=== PATIENT | male | born 1970 | race Two or more races ===

== ENCOUNTER 2016-08-14 09:42 | Inpatient (IN) | payer OTHER ==
[2016-08-14 12:23] VITALS: BMI 34.0
--- NOTE | 2016-08-14 14:31 | HP ---
COWS - Scale Resting Pulse: 0= [place] 80 or Below Sweatin=Flushed/Facial Moisture Restless Observation: 3= Extraneous Movement Pupil Size: 2= Moderately Dilated Bone or Joint Aches: 2= Severe Diffuse Aches Runny Nose/ Eye Tearin= Runny Nose/Eyes GI Upset > 30mins: 3= Vomiting/Diarrhea Tremor Observation: 2= Slight Tremor Visible Yawning Observation: 2= >3x During Session Anxiety or Irritability: 2=Irritable/Anxious Goose Flesh Skin: 0=Smooth Skin COWS Score: 20 CIWA Score - CIWA Score Nausea/Vomitin Muscle Tremors: 3 Anxiety: 3 Agitation: 3 Paroxysmal Sweats: 2 Orientation: 0-Oriented Tacttile Disturbances: 2-Mild Itch/Numbness/Burn Auditory Disturbances: 2-Mild Harshness/Frighten Visual Disturbances: 2-Mild Sensitivity Headache: 2-Mild CIWA-Ar Total Score: 22 Admission ROS BHS - HPI Chief Complaint: I NEED HELP TO STOP USING HEROIN AND ALCOHOL Allergies/Adverse Reactions: Allergies Allergy/AdvReac Type Severity Reaction Status Date / Time enoxaparin sodium Allergy Severe Rash Verified 08/14/16 14:01 [From [facility]] History of Present Illness: THIS 45 YEARS OLD MALE WITH HEROIN AND ALCOHOL DEPENDENCE,SEEKING HELP FOR DETOX , SEVERAL ADMISSIONS IN THE PAST,LAST 03/13 [facility] PERIOD OF SOBRIETY 4 YEARS MULTIPLE MEDICAL PROBLEMS ASTHMA,HTN,TYPE 2 DM HIV [id number] [place] 1999 IVC FILFER DVT OF LEFT LEG - Ebola screening Have you traveled outside of the country in the last 21 days: No Have you been sick,other than usual withdrawal symptoms: No - Review of Systems Constitutional: Chills, Diaphoresis, Loss of Appetite, Malaise, Night Sweats, Changes in sleep, Weakness EENT: reports: Tearing, Nose Congestion Respiratory: reports: No Symptoms reported, Other (ASTHMA) Cardiac: reports: No Symptoms Reported ([place] 1999) GI: reports: Diarrhea, Nausea, Poor Fluid Intake, Vomiting : reports: No Symptoms Reported Musculoskeletal: reports: Back Pain, Joint Pain, Muscle Pain, Joint Stiffness Integumentary: reports: Dryness Neuro: reports: Headache, Tremors Endocrine: reports: No Symptoms Reported Hematology: reports: No Symptoms Reported, Other (HIV) Psychiatric: reports: No Sypmtoms Reported, Judgement Intact, Mood/Affect Appropiate, Orientated x3 (INSOMNIA) Patient History - Patient Medical History Hx Anemia: No Hx Asthma: Yes (ON ALBUTEROL INHALER) Hx Chronic Obstructive Pulmonary Disease (COPD): No Hx Cancer: No Hx Cardiac Disorders: Yes ([place] 1999) Hx Congestive Heart Failure: No Hx Hypertension: Yes (ON MED) Hx Hypercholesterolemia: No Hx Pacemaker: No HX Cerebrovascular Accident: No Hx Seizures: No Hx Dementia: No Hx Diabetes: Yes (TYPE 2 DM) Hx Gastrointestinal Disorders: No Hx Liver Disease: No Hx Genitourinary Disorders: No Hx Sexually Transmitted Disorders: No Hx Renal Disease (ESRD): No Hx Thyroid Disease: No Hx Human Immunodeficiency Virus (HIV): Yes (SINCE 2010) Hx Hepatitis C: No Hx Depression: No Hx Suicide Attempt: No Hx Bipolar Disorder: No Hx Schizophrenia: No Other Medical History: INSOMNIA,NO SUICIDAL,NO HOMICIDAL - Patient Surgical History Past Surgical History: Yes Other Surgical History: IVC FILTER IN 2009 - PPD History Previous Implant?: Yes Documented Results: Negative w/o proof Implanted On Prior [facility] Admission?: No PPD to be Administered?: Yes - Smoking Cessation Smoking history: Current every day smoker Have you smoked in the past 12 months: Yes Aproximately how many cigarettes per day: 5 Hx Chewing Tobacco Use: No Initiated information on smoking cessation: Yes 'Breaking Loose' booklet given: 08/14/16 - Substances Abused Alcohol-beer Route: Oral Frequency: Daily Amount used: 2 (40 oz.) Age of first use: 19 Date of Last Use: 08/13/16 Heroin Route: Inhalation Frequency: Daily Amount used: 10 bags Age of first use: 28 Date of Last Use: 08/13/16 Family Disease History - Family Disease History Family Disease History: Other: Father (ALCOHOL,) Admission Physical Exam BHS - Vital Signs Vital Signs: Vital Signs - 24 hr 08/14/16 12:20 Temperature 97.7 F Pulse Rate 68 Respiratory 20 Rate Blood Pressure 148/105 - Physical General Appearance: Yes: Moderate Distress, Tremorous, Irritable, Sweating, Anxious HEENTM: Yes: Normal ENT Inspection, GREG, Pharynx Normal Respiratory: Yes: Lungs Clear, Normal Breath Sounds, No Respiratory Distress Breast: Yes: Within Normal Limits Cardiology: Yes: Within Normal Limits, Regular Rhythm, Regular Rate, S1, S2 Abdominal: Yes: Within Normal Limits, Normal Bowel Sounds, Non Tender, Flat, Soft Genitourinary: Yes: Within Normal Limits Back: Yes: Normal Inspection, Muscle Spasm Musculoskeletal: Yes: Back pain, Joint Stiffness, Muscle Pain Extremities: Yes: Within Normal Limits, Normal Range of Motion, Tremors Neurological: Yes: Within Normal Limits, 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, Alert, Motor Strength 5/5 Integumentary: Yes: Dry Lymphatic: Yes: Within Normal Limits - Diagnostic (1) Opioid dependence with withdrawal Current Visit: Yes Status: Acute (2) Alcohol dependence with uncomplicated withdrawal Current Visit: Yes Status: Acute (3) HIV (human immunodeficiency virus infection) Current Visit: Yes Status: Acute (4) Asthma Current Visit: Yes Status: Acute (5) Hypertension Current Visit: Yes Status: Acute (6) DM2 (diabetes mellitus, type 2) Current Visit: Yes Status: Acute (7) Hepatitis C Current Visit: Yes Status: Acute (8) [place] (myocardial infarction) Current Visit: Yes Status: Acute (9) Left leg DVT Current Visit: Yes Status: Acute (10) S/P IVC filter Current Visit: Yes Status: Acute (11) Nicotine dependence Current Visit: Yes Status: Acute Cleared for Admission S - Detox or Rehab [facility] Level of Care: Medically Managed Detox Regimen/Protocol: Methadone/Librium S Breath Alcohol Content Breath Alcohol Content: 0 Urine Drug Screen - Results Drug Screen Negative: No Urine Drug Screen Results: BRADLEY-Cocaine, OPI-Opiates, MTD-Methadone
[2016-08-14] MEDS ORDERED: hydrOXYzine PAMOATE 50 MG CAPSULE (FP) PO PRN (14:49)
[2016-08-14] MEDS ORDERED: MENTHOL/PHENOL 1 EACH UD MM PRN (14:49)
[2016-08-14] MEDS ORDERED: MAGNESIUM HYDROX 2400MG/30ML ORAL SUSPENSION 30 ML CUP PO PRN (14:49)
[2016-08-14] MEDS ORDERED: P-EPHED 60MG/TRIPROLIDI 2.5MG TABLET PO PRN (14:49)
[2016-08-14] MEDS ORDERED: MAG HYDROX/AL HYDROX/SIMETH 30 ML UNIT-DOSE CUP PO PRN (14:49)
[2016-08-14] MEDS ORDERED: guaiFENesin/D-METHORPHAN HB 10 ML UNIT-DOSE CUPS PO PRN (14:49)
[2016-08-14] MEDS ORDERED: IBUPROFEN 400 MG TABLET (FP) PO PRN (14:49)
[2016-08-14] MEDS ORDERED: MAGNESIUM CITRATE 300 ML BOTTLE PO PRN (14:49)
[2016-08-14] MEDS ORDERED: ACETAMINOPHEN 325 MG TABLET (FP) PO PRN (14:49)
[2016-08-14] MEDS ORDERED: LOPERAMIDE HCL 2 MG CAPSULE PO PRN (14:49)
[2016-08-14] MEDS ORDERED: chlordiazePOXIDE HCL 25 MG CAPSULE PO PRN (14:49)
[2016-08-14] MEDS ORDERED: ALBUTEROL SO4 6.7 GM HFA INHALER IH PRN (14:52)
[2016-08-14] MEDS ORDERED: METHADONE HCL 10 MG TABLET (FOR DETOX USE ONLY) PO ONE ×2 (14:57→23:00)
[2016-08-14] MEDS ORDERED: chlordiazePOXIDE HCL 25 MG CAPSULE PO ONE (14:57)
[2016-08-14] MEDS: chlordiazePOXIDE HCL 25 MG CAPSULE PO SCH ×2 (17:09→22:12)
[2016-08-14 20:49] LABS: URINE APPEARANCE CLEAR; URINE BILIRUBIN NEGATIVE (NEGATIVE); URINE BLOOD NEGATIVE (NEGATIVE); URINE COLOR YELLOW; URINE GLUCOSE (UA) NEGATIVE (NEGATIVE); URINE KETONE NEGATIVE (NEGATIVE); URINE LEUK ESTERASE NEGATIVE (NEGATIVE); URINE NITRITE NEGATIVE (NEGATIVE); URINE PROTEIN NEGATIVE (NEGATIVE); URINE UROBILINOGEN NEGATIVE E.U./dl (0.2-1.0)
[2016-08-14] MEDS: THIAMINE HCL 100 MG TABLET (FP) PO SCH (22:11)
[2016-08-15] MEDS: chlordiazePOXIDE HCL 25 MG CAPSULE PO SCH ×4 (05:36→22:03)
[2016-08-15] MEDS: metFORMIN HCL 500 MG TABLET (FP) PO SCH (06:27)
[2016-08-15] MEDS ORDERED: METHADONE HCL 10 MG TABLET (FOR DETOX USE ONLY) PO SCH (10:00)
[2016-08-15] MEDS: LISINOPRIL 20 MG TABLET (FP) PO SCH (10:10)
[2016-08-15] MEDS: HYDROCHLOROTHIAZIDE 25 MG TABLET (FP) PO SCH (10:10)
[2016-08-15] MEDS: METOPROLOL SUCCINATE 50 MG TAB.SR.24H (FP) PO SCH (10:10)
[2016-08-15] MEDS: PRENATAL VITAMINS W/ FOLIC ACID TABLET (FP) PO SCH (10:10)
[2016-08-15 10:11] LABS: MCH 27.3 pg (25.7-33.7); MCHC 32.1 g/dl (32.0-35.9); MEAN CELL VOLUME 85.2 fl (80-96); MEAN PLT VOLUME 10.6 fl (7.5-11.1); PLATELET COUNT 141 K/MM3 (134-434); RDW 14.9 % (11.9-15.9); WHITE BLOOD COUNT 3.9 K/mm3 (4.0-10.0)
[2016-08-15 10:23] LABS: ALBUMIN 3.6 g/dl (3.4-5.0); BILIRUBIN,TOTAL 0.7 mg/dL (0.2-1.0); CALCIUM 8.6 mg/dL (8.5-10.1); COCKROFT - GAULT 89.83; CREATININE 1.5 mg/dL (0.7-1.3); TOT PROT 6.7 g/dl (6.4-8.2)
[2016-08-15] MEDS: ASPIRIN 325 MG ENTERIC COATED TABLET (FP) PO SCH (11:10)
--- NOTE | 2016-08-15 12:21 | EKG ---
Test Reason : Blood Pressure : / mmHG Vent. Rate : 067 BPM Atrial Rate : 067 BPM P-R Int : 198 ms QRS Dur : 090 ms QT Int : 428 ms P-R-T Axes : 035 -08 067 degrees QTc Int : 452 ms NORMAL SINUS RHYTHM VOLTAGE CRITERIA FOR LEFT VENTRICULAR HYPERTROPHY INFERIOR INFARCT , AGE UNDETERMINED ABNORMAL ECG NO PREVIOUS ECGS AVAILABLE Confirmed by MD WANDER, CHERELLE ([id number]) on 08/15/2016 12:21:33 PM Referred By: Confirmed By:CHERELLE VIRAMONTES MD
--- NOTE | 2016-08-15 18:05 | PN ---
[facility] CIWA - CIWA Score Nausea/Vomitin-Mild Nausea/No Vomiting Muscle Tremors: 4-Moderate,w/Arms Extend Anxiety: 2 Agitation: 3 Paroxysmal Sweats: 3 Orientation: 0-Oriented Tacttile Disturbances: 0-None Auditory Disturbances: 3-Moderate Harsh/Frighten Visual Disturbances: 2-Mild Sensitivity Headache: 0-None Present CIWA-Ar Total Score: 18 BHS COWS - Scale Resting Pulse: 0= [place] 80 or Below Sweatin=Flushed/Facial Moisture Restless Observation: 1= Difficult to Sit Still Pupil Size: 0= Normal to Room Light Bone or Joint Aches: 2= Severe Diffuse Aches Runny Nose/ Eye Tearin= Runny Nose/Eyes GI Upset > 30mins: 1= Stomach Cramp Tremor Observation of Outstretched Hands: 2= Slight Tremor Visible Yawning Observation: 1= 1-2x During Session Anxiety or Irritability: 2=Irritable/Anxious Goose Flesh Skin: 3=Piloerection COWS Score: 16 S Progress Note (SOAP) Subjective: Body Aches, Sweating, Tremors. Objective: PT. A & O X 3, OBSERVED AMBULATING ON UNIT. PT. DENIES CHEST PAIN. 08/15/16 18:04 Vital Signs Temperature 96.8 F L 08/15/16 14:54 Pulse Rate 59 L 08/15/16 14:54 Respiratory Rate 18 08/15/16 14:54 Blood Pressure 144/92 08/15/16 14:54 O2 Sat by Pulse Oximetry (%) Laboratory Tests 08/14/16 08/14/16 08/15/16 15:45 16:18 05:34 WBC RBC Hgb Hct MCV MCHC RDW Plt Count MPV Sodium Potassium Chloride Carbon Dioxide Anion Gap BUN Creatinine Creat Clearance w eGFR POC Glucometer 120 121 Random Glucose Calcium Total Bilirubin AST ALT Alkaline Phosphatase Total Protein Albumin Urine Color Yellow Urine Appearance Clear Urine pH 6.0 Ur Specific [place] 1.020 Urine Protein Negative Urine Glucose (UA) Negative Urine Ketones Negative Urine Blood Negative Urine Nitrite Negative Urine Bilirubin Negative Urine Urobilinogen Negative Ur Leukocyte Esterase Negative RPR Titer 08/15/16 08/15/16 08/15/16 06:00 06:00 06:00 WBC 3.9 L RBC 5.07 Hgb 13.8 Hct 43.1 MCV 85.2 MCHC 32.1 RDW 14.9 Plt Count 141 MPV 10.6 Sodium 142 Potassium 3.9 Chloride 105 Carbon Dioxide 30 Anion Gap 7 L BUN 19 H Creatinine 1.5 H Creat Clearance w eGFR 50.16 POC Glucometer Random Glucose 171 H Calcium 8.6 Total Bilirubin 0.7 AST 15 ALT 20 Alkaline Phosphatase 72 Total Protein 6.7 Albumin 3.6 Urine Color Urine Appearance Urine pH Ur Specific [place] Urine Protein Urine Glucose (UA) Urine Ketones Urine Blood Urine Nitrite Urine Bilirubin Urine Urobilinogen Ur Leukocyte Esterase RPR Titer Nonreactive 08/15/16 16:19 WBC RBC Hgb Hct MCV MCHC RDW Plt Count MPV Sodium Potassium Chloride Carbon Dioxide Anion Gap BUN Creatinine Creat Clearance w eGFR POC Glucometer 87 Random Glucose Calcium Total Bilirubin AST ALT Alkaline Phosphatase Total Protein Albumin Urine Color Urine Appearance Urine pH Ur Specific [place] Urine Protein Urine Glucose (UA) Urine Ketones Urine Blood Urine Nitrite Urine Bilirubin Urine Urobilinogen Ur Leukocyte Esterase RPR Titer LABS NOTED. 08/15/16 18:07 Assessment: 08/15/16 18:07 WITHDRAWAL SYMPTOMS. Plan: CONTINUE DETOX.
[2016-08-15] MEDS: THIAMINE HCL 100 MG TABLET (FP) PO SCH (22:03)
[2016-08-15] MEDS: diphenhydrAMINE HCL 50 MG CAPSULE PO PRN (22:03)
[2016-08-16] MEDS: chlordiazePOXIDE HCL 25 MG CAPSULE PO SCH ×2 (05:40→10:08)
[2016-08-16] MEDS: metFORMIN HCL 500 MG TABLET (FP) PO SCH (06:20)
[2016-08-16] MEDS: ASPIRIN 325 MG ENTERIC COATED TABLET (FP) PO SCH (10:07)
[2016-08-16] MEDS: METHADONE HCL 5 MG TABLET (FOR DETOX USE ONLY) PO SCH (10:07)
[2016-08-16] MEDS: PRENATAL VITAMINS W/ FOLIC ACID TABLET (FP) PO SCH (10:07)
[2016-08-16] MEDS: LISINOPRIL 20 MG TABLET (FP) PO SCH (10:07)
[2016-08-16] MEDS: HYDROCHLOROTHIAZIDE 25 MG TABLET (FP) PO SCH (10:08)
[2016-08-16] MEDS: METOPROLOL SUCCINATE 50 MG TAB.SR.24H (FP) PO SCH (10:08)
[2016-08-16] MEDS ORDERED: cloNIDine HCL 0.1 MG TABLET PO ONE ×2 (15:30→21:42)
--- NOTE | 2016-08-16 16:05 | PN ---
[facility] CIWA - CIWA Score Nausea/Vomitin Muscle Tremors: 4-Moderate,w/Arms Extend Anxiety: 3 Agitation: 3 Paroxysmal Sweats: No Perspiration Orientation: 0-Oriented Tacttile Disturbances: 1-Very Mild Itch/Numbness Auditory Disturbances: 0-None Visual Disturbances: 0-None Headache: 1-Very Mild CIWA-Ar Total Score: 15 BHS COWS - Scale Resting Pulse: 0= [place] 80 or Below Sweatin= Chills/Flushing Restless Observation: 3= Extraneous Movement Pupil Size: 0= Normal to Room Light Bone or Joint Aches: 2= Severe Diffuse Aches Runny Nose/ Eye Tearin= Runny Nose/Eyes GI Upset > 30mins: 1= Stomach Cramp Tremor Observation of Outstretched Hands: 2= Slight Tremor Visible Yawning Observation: 0= None Anxiety or Irritability: 2=Irritable/Anxious Goose Flesh Skin: 0=Smooth Skin COWS Score: 13 S Progress Note (SOAP) Subjective: Sweating, anxious, rhinorrhea, tremor, interrupted sleep Objective: 08/16/16 16:03 Last Vital Signs Temp Pulse Resp BP Pulse Ox 96.9 F L 59 L 18 157/104 08/16/16 13:38 08/16/16 15:00 08/16/16 13:38 08/16/16 15:00 Laboratory Tests 08/14/16 08/14/16 08/15/16 15:45 16:18 05:34 WBC RBC Hgb Hct MCV MCHC RDW Plt Count MPV Sodium Potassium Chloride Carbon Dioxide Anion Gap BUN Creatinine Creat Clearance w eGFR POC Glucometer 120 121 Random Glucose Calcium Total Bilirubin AST ALT Alkaline Phosphatase Total Protein Albumin Urine Color Yellow Urine Appearance Clear Urine pH 6.0 Ur Specific [place] 1.020 Urine Protein Negative Urine Glucose (UA) Negative Urine Ketones Negative Urine Blood Negative Urine Nitrite Negative Urine Bilirubin Negative Urine Urobilinogen Negative Ur Leukocyte Esterase Negative RPR Titer 08/15/16 08/15/16 08/15/16 06:00 06:00 06:00 WBC 3.9 L RBC 5.07 Hgb 13.8 Hct 43.1 MCV 85.2 MCHC 32.1 RDW 14.9 Plt Count 141 MPV 10.6 Sodium 142 Potassium 3.9 Chloride 105 Carbon Dioxide 30 Anion Gap 7 L BUN 19 H Creatinine 1.5 H Creat Clearance w eGFR 50.16 POC Glucometer Random Glucose 171 H Calcium 8.6 Total Bilirubin 0.7 AST 15 ALT 20 Alkaline Phosphatase 72 Total Protein 6.7 Albumin 3.6 Urine Color Urine Appearance Urine pH Ur Specific [place] Urine Protein Urine Glucose (UA) Urine Ketones Urine Blood Urine Nitrite Urine Bilirubin Urine Urobilinogen Ur Leukocyte Esterase RPR Titer Nonreactive 08/15/16 08/16/16 16:19 05:40 WBC RBC Hgb Hct MCV MCHC RDW Plt Count MPV Sodium Potassium Chloride Carbon Dioxide Anion Gap BUN Creatinine Creat Clearance w eGFR POC Glucometer 87 123 Random Glucose Calcium Total Bilirubin AST ALT Alkaline Phosphatase Total Protein Albumin Urine Color Urine Appearance Urine pH Ur Specific [place] Urine Protein Urine Glucose (UA) Urine Ketones Urine Blood Urine Nitrite Urine Bilirubin Urine Urobilinogen Ur Leukocyte Esterase RPR Titer Labs noted: BUN 19, serum creatinine 1.5 Assessment: 08/16/16 16:05 Withdrawal symptoms Noted with pre renal azotemia, uncontrolled HTN and hyerglycemia secondary to DMT2 Plan: Continue detox Pre renal azotemia: encouraged to drink lots of water (water pitcher ordered), d /c lisinopril and metformin, hold HAART if no improvement with serum creatinine , repeat BMP in AM Uncontrolled HTN: clonidine 0.1mg PO x 1 dose, continue HCTZ 25mg daily and metoprolol 50mg daily (consider increasing metoprolol to bid if warranted), start norvasc 10mg PO daily, low sodium diet Hyerglycemia secondary to DMT2: finger stick glucose ac meal, start insulin lispro sliding scale with coverage, can resume metformin if serum creatinine < 1.5
[2016-08-16] MEDS: INSULIN SLIDING SCALE (NOVOLOG) 1 VIAL SQ SCH (16:32)
[2016-08-16] MEDS: chlordiazePOXIDE 5 MG CAPSULE PO SCH ×2 (17:45→22:03)
[2016-08-16] MEDS: THIAMINE HCL 100 MG TABLET (FP) PO SCH (22:02)
[2016-08-16] MEDS: diphenhydrAMINE HCL 50 MG CAPSULE PO PRN (22:03)
[2016-08-17] MEDS: chlordiazePOXIDE 5 MG CAPSULE PO SCH ×3 (05:50→10:06)
[2016-08-17] MEDS ORDERED: INSULIN (NOVOLOG) ASPART 100 UNITS/ML 10ML VIAL ONE (06:21)
[2016-08-17] MEDS: INSULIN SLIDING SCALE (NOVOLOG) 1 VIAL SQ SCH ×2 (06:31→17:11)
[2016-08-17 10:03] LABS: COCKROFT - GAULT 103.65; CREATININE 1.3 mg/dL (0.7-1.3)
[2016-08-17] MEDS: METHADONE HCL 5 MG TABLET (FOR DETOX USE ONLY) PO SCH (10:04)
[2016-08-17] MEDS: METOPROLOL SUCCINATE 50 MG TAB.SR.24H (FP) PO SCH (10:04)
[2016-08-17] MEDS: HYDROCHLOROTHIAZIDE 25 MG TABLET (FP) PO SCH (10:04)
[2016-08-17] MEDS: ASPIRIN 325 MG ENTERIC COATED TABLET (FP) PO SCH (10:04)
[2016-08-17] MEDS: PRENATAL VITAMINS W/ FOLIC ACID TABLET (FP) PO SCH (10:04)
[2016-08-17] MEDS: amLODIPine BESYLATE 10 MG TABLET (FP) PO SCH (10:04)
--- NOTE | 2016-08-17 11:46 | PN ---
BHS Progress Note (SOAP) Subjective: Sweating, Tremors. Objective: PT. A & O X 3, OBSERVED AMBULATING ON UNIT. PT. DENIES CHEST PAIN AND DIZZINESS. 08/17/16 11:43 Vital Signs Temperature 97.2 F L 08/17/16 09:49 Pulse Rate 47 L 08/17/16 09:49 Respiratory Rate 18 08/17/16 09:49 Blood Pressure 141/93 08/17/16 09:49 O2 Sat by Pulse Oximetry (%) Laboratory Tests 08/14/16 08/14/16 08/14/16 14:36 15:45 16:18 WBC RBC Hgb Hct MCV MCHC RDW Plt Count MPV Sodium Potassium Chloride Carbon Dioxide Anion Gap BUN Creatinine Creat Clearance w eGFR POC Glucometer 144 120 Random Glucose Calcium Total Bilirubin AST ALT Alkaline Phosphatase Total Protein Albumin Urine Color Yellow Urine Appearance Clear Urine pH 6.0 Ur Specific [place] 1.020 Urine Protein Negative Urine Glucose (UA) Negative Urine Ketones Negative Urine Blood Negative Urine Nitrite Negative Urine Bilirubin Negative Urine Urobilinogen Negative Ur Leukocyte Esterase Negative RPR Titer 08/15/16 08/15/16 08/15/16 05:34 06:00 06:00 WBC 3.9 L RBC 5.07 Hgb 13.8 Hct 43.1 MCV 85.2 MCHC 32.1 RDW 14.9 Plt Count 141 MPV 10.6 Sodium 142 Potassium 3.9 Chloride 105 Carbon Dioxide 30 Anion Gap 7 L BUN 19 H Creatinine 1.5 H Creat Clearance w eGFR 50.16 POC Glucometer 121 Random Glucose 171 H Calcium 8.6 Total Bilirubin 0.7 AST 15 ALT 20 Alkaline Phosphatase 72 Total Protein 6.7 Albumin 3.6 Urine Color Urine Appearance Urine pH Ur Specific [place] Urine Protein Urine Glucose (UA) Urine Ketones Urine Blood Urine Nitrite Urine Bilirubin Urine Urobilinogen Ur Leukocyte Esterase RPR Titer 08/15/16 08/15/16 08/16/16 06:00 16:19 05:40 WBC RBC Hgb Hct MCV MCHC RDW Plt Count MPV Sodium Potassium Chloride Carbon Dioxide Anion Gap BUN Creatinine Creat Clearance w eGFR POC Glucometer 87 123 Random Glucose Calcium Total Bilirubin AST ALT Alkaline Phosphatase Total Protein Albumin Urine Color Urine Appearance Urine pH Ur Specific [place] Urine Protein Urine Glucose (UA) Urine Ketones Urine Blood Urine Nitrite Urine Bilirubin Urine Urobilinogen Ur Leukocyte Esterase RPR Titer Nonreactive 08/16/16 08/17/16 08/17/16 16:25 05:52 07:15 WBC RBC Hgb Hct MCV MCHC RDW Plt Count MPV Sodium 139 Potassium 3.5 Chloride 100 Carbon Dioxide 32 Anion Gap 7 L BUN 21 H Creatinine 1.3 Creat Clearance w eGFR POC Glucometer 95 121 Random Glucose 131 H D Calcium 9.0 Total Bilirubin AST ALT Alkaline Phosphatase Total Protein Albumin Urine Color Urine Appearance Urine pH Ur Specific [place] Urine Protein Urine Glucose (UA) Urine Ketones Urine Blood Urine Nitrite Urine Bilirubin Urine Urobilinogen Ur Leukocyte Esterase RPR Titer LABS NOTED. 08/17/16 11:46 Assessment: 08/17/16 11:45 WITHDRAWAL SYMPTOMS. Plan: CONTINUE DETOX. CONTINUE TO MONITOR BP.
[2016-08-17] MEDS: chlordiazePOXIDE HCL 10 MG CAPSULE PO SCH ×2 (17:10→22:07)
[2016-08-17] MEDS: diphenhydrAMINE HCL 50 MG CAPSULE PO PRN (22:07)
[2016-08-17] MEDS: THIAMINE HCL 100 MG TABLET (FP) PO SCH (22:07)
[2016-08-18] MEDS: chlordiazePOXIDE HCL 10 MG CAPSULE PO SCH ×2 (05:32→10:06)
[2016-08-18] MEDS: INSULIN SLIDING SCALE (NOVOLOG) 1 VIAL SQ SCH ×2 (06:22→17:30)
[2016-08-18] MEDS ORDERED: METHADONE HCL 10 MG TABLET (FOR DETOX USE ONLY) PO SCH (10:00)
[2016-08-18] MEDS: METOPROLOL SUCCINATE 50 MG TAB.SR.24H (FP) PO SCH (10:04)
[2016-08-18] MEDS: PRENATAL VITAMINS W/ FOLIC ACID TABLET (FP) PO SCH (10:05)
[2016-08-18] MEDS: ASPIRIN 325 MG ENTERIC COATED TABLET (FP) PO SCH (10:05)
[2016-08-18] MEDS: amLODIPine BESYLATE 10 MG TABLET (FP) PO SCH (10:05)
[2016-08-18] MEDS: HYDROCHLOROTHIAZIDE 25 MG TABLET (FP) PO SCH (10:05)
--- NOTE | 2016-08-18 11:20 | PN ---
BHS Progress Note (SOAP) Subjective: Sweating,interrupted sleep,restless Objective: 08/18/16 11:19 Vital Signs - 8 hr 08/18/16 08/18/16 08/18/16 03:30 06:20 09:48 Temperature 97.3 F L 96.9 F L Pulse Rate 52 L 59 L Respiratory 18 18 18 Rate Blood Pressure 142/104 150/98 08/18/16 09:49 Temperature 96.9 F L Pulse Rate 58 L Respiratory 18 Rate Blood Pressure 153/114 Laboratory Last Values WBC 3.9 K/mm3 (4.0-10.0) L 08/15/16 06:00 RBC 5.07 M/mm3 (4.00-5.60) 08/15/16 06:00 Hgb 13.8 GM/dL (11.7-16.9) 08/15/16 06:00 Hct 43.1 % (35.4-49) 08/15/16 06:00 MCV 85.2 fl (80-96) 08/15/16 06:00 MCHC 32.1 g/dl (32.0-35.9) 08/15/16 06:00 RDW 14.9 % (11.9-15.9) 08/15/16 06:00 Plt Count 141 K/MM3 (134-434) 08/15/16 06:00 MPV 10.6 fl (7.5-11.1) 08/15/16 06:00 Sodium 139 mmol/L (136-145) 08/17/16 07:15 Potassium 3.5 mmol/L (3.5-5.1) 08/17/16 07:15 Chloride 100 mmol/L (98-107) 08/17/16 07:15 Carbon Dioxide 32 mmol/L (21-32) 08/17/16 07:15 Anion Gap 7 (8-16) L 08/17/16 07:15 BUN 21 mg/dL (7-18) H 08/17/16 07:15 Creatinine 1.3 mg/dL (0.7-1.3) 08/17/16 07:15 Creat Clearance w eGFR 50.16 (>60) 08/15/16 06:00 POC Glucometer 112 UNITS (()) 08/18/16 05:36 Random Glucose 131 mg/dL (74-106) H D 08/17/16 07:15 Calcium 9.0 mg/dL (8.5-10.1) 08/17/16 07:15 Total Bilirubin 0.7 mg/dL (0.2-1.0) 08/15/16 06:00 AST 15 U/L (15-37) 08/15/16 06:00 ALT 20 U/L (12-78) 08/15/16 06:00 Alkaline Phosphatase 72 U/L (45-117) 08/15/16 06:00 Total Protein 6.7 g/dl (6.4-8.2) 08/15/16 06:00 Albumin 3.6 g/dl (3.4-5.0) 08/15/16 06:00 Urine Color Yellow 08/14/16 15:45 Urine Appearance Clear 08/14/16 15:45 Urine pH 6.0 (5.0-8.0) 08/14/16 15:45 Ur Specific [place] 1.020 (1.005-1.025) 08/14/16 15:45 Urine Protein Negative (NEGATIVE) 08/14/16 15:45 Urine Glucose (UA) Negative (NEGATIVE) 08/14/16 15:45 Urine Ketones Negative (NEGATIVE) 08/14/16 15:45 Urine Blood Negative (NEGATIVE) 08/14/16 15:45 Urine Nitrite Negative (NEGATIVE) 08/14/16 15:45 Urine Bilirubin Negative (NEGATIVE) 08/14/16 15:45 Urine Urobilinogen Negative E.U./dl (0.2-1.0) 08/14/16 15:45 Ur Leukocyte Esterase Negative (NEGATIVE) 08/14/16 15:45 RPR Titer Nonreactive (NONREACTIVE) 08/15/16 06:00 labs noted Assessment: 08/18/16 11:20 Withdrawal sx. Plan: Continue detox
[2016-08-18] MEDS: THIAMINE HCL 100 MG TABLET (FP) PO SCH (21:44)
[2016-08-18] MEDS ORDERED: cloNIDine HCL 0.1 MG TABLET PO ONE (22:02)
[2016-08-18] MEDS: diphenhydrAMINE HCL 50 MG CAPSULE PO PRN (22:03)
[2016-08-19] MEDS ORDERED: METHADONE HCL 5 MG TABLET (FOR DETOX USE ONLY) PO SCH (06:00)
[2016-08-19 06:25] VITALS: BP 159/99; PULSE 52; TEMP 96.9
[2016-08-19] MEDS: amLODIPine BESYLATE 10 MG TABLET (FP) PO SCH ×2 (06:36→06:37)
[2016-08-19] MEDS: INSULIN SLIDING SCALE (NOVOLOG) 1 VIAL SQ SCH (06:39)
[2016-08-19] MEDS: METOPROLOL SUCCINATE 50 MG TAB.SR.24H (FP) PO SCH ×2 (06:39→06:40)
--- NOTE | 2016-08-19 13:25 | DS ---
[facility] Detox Discharge Summary Admission Date: 08/14/16 Discharge Date: 08/19/16 - History Present History: Alcohol Dependence, Opioid Dependence Additional Comments: PT COMPLETED DETOX AND D/C'D EARLIER THIS MORNING. PT TO F/U WITH HIS PMD FOR MEDICAL MANAGEMENT OF COMORBID CONDITIONS. Pertinent Past History: ASTHMA CAD- S/P NC HTN TYPE 2 DM HIV+ LEFT LEG DVT S/P IVC FILTER HEP C - Physical Exam Results Vital Signs: Vital Signs Temperature 96.9 F L 08/19/16 06:25 Pulse Rate 52 L 08/19/16 06:25 Respiratory Rate 16 08/19/16 06:25 Blood Pressure 159/99 08/19/16 06:25 O2 Sat by Pulse Oximetry (%) Pertinent Admission Physical Exam Findings: WITHDRAWAL SX - Treatment Hospital Course: Detox Protocol Followed, Detoxed Safely, Responded well - Medication Discharge Medications: Ambulatory Orders Albuterol Sulfate Inhaler - [Ventolin Hfa Inhaler -] 2 inh PO Q4H PRN 08/14/16 Aspirin [Aspirin EC] 325 mg PO DAILY 08/14/16 Emtricitab/Rilpiviri/Tenof Ala [Odefsey Tablet] 1 each PO DAILY 08/14/16 Hydrochlorothiazide 25 mg PO DAILY 08/14/16 Lisinopril [Prinivil] 20 mg PO DAILY 08/14/16 Metformin HCl [Glucophage -] 500 mg PO DAILY 08/14/16 Metoprolol Succinate [Toprol Xl -] 50 mg PO DAILY 08/14/16 - Diagnosis (1) Alcohol dependence with uncomplicated withdrawal Status: Acute (2) Asthma Status: Chronic Qualifiers: Asthma severity: mild intermittent Asthma complication type: uncomplicated Qualified Code(s): J45.20 - Mild intermittent asthma, uncomplicated (3) DM2 (diabetes mellitus, type 2) Status: Chronic Qualifiers: Diabetes mellitus complication status: without complication (4) HIV (human immunodeficiency virus infection) Status: Chronic (5) Hepatitis C Status: Chronic (6) Hypertension Status: Chronic Qualifiers: Hypertension type: essential hypertension Qualified Code(s): I10 - Essential (primary) hypertension (7) Left leg DVT Status: Chronic Qualifiers: Affected thrombotic vein of extremity: unspecified lower extremity distal vein Chronicity: unspecified Qualified Code(s): I82.4Z2 - Acute embolism and thrombosis of unspecified deep veins of left distal lower extremity (8) Nicotine dependence Status: Acute Qualifiers: Nicotine product type: cigarettes Substance use status: in withdrawal Qualified Code(s): F17.213 - Nicotine dependence, cigarettes, with withdrawal (9) Old [place] (myocardial infarction) Status: Suspected (10) Opioid dependence with withdrawal Status: Acute (11) S/P IVC filter Status: Chronic - AMA Did Patient Leave Against Medical Advice: No
== END 2016-08-19 07:11 | disposition home or self-care (01) | DRG 773 ==
LOC: YASAS 09:42 → Y3N 14:50
PROVIDERS: ADMIT Internal Medicine; ATTEND Internal Medicine
PROC: HZ2ZZZZ Detoxification Services for Substance Abuse Treatment (ICD-10-PCS; principal; 2016-08-14)
DX: F11.23 Opioid dependence with withdrawal (principal); F17.213 Nicotine dependence, cigarettes, with withdrawal; J45.20 Mild intermittent asthma, uncomplicated; E11.65 Type 2 diabetes mellitus with hyperglycemia; B18.2 Chronic viral hepatitis C; I10 Essential (primary) hypertension; I25.2 Old myocardial infarction; Z21 Asymptomatic human immunodeficiency virus [HIV] infection status; Z95.828 Presence of other vascular implants and grafts; Z79.84 Long term (current) use of oral hypoglycemic drugs; R79.89 Other specified abnormal findings of blood chemistry
CPT/HCPCS: 36415; 80048; 80053; 81003; 85027; 86593; 93005; 93010

== ENCOUNTER 2017-07-15 14:14 | Inpatient (IN) | payer OTHER ==
[2017-07-15 14:49] VITALS: BMI 36.0
--- NOTE | 2017-07-15 18:36 | HP ---
COWS - Scale Resting Pulse: 0= [place] 80 or Below Sweatin=Flushed/Facial Moisture Restless Observation: 1= Difficult to Sit Still Pupil Size: 0= Normal to Room Light Bone or Joint Aches: 0= None Runny Nose/ Eye Tearin= Runny Nose/Eyes GI Upset > 30mins: 0= None Tremor Observation: 2= Slight Tremor Visible Yawning Observation: 1= 1-2x During Session Anxiety or Irritability: 1=Feels Anxious/Irritable Goose Flesh Skin: 3=Piloerection COWS Score: 12 Admission ROS S - HPI Chief Complaint: Opioid withdrawal symptoms Allergies/Adverse Reactions: Allergies Allergy/AdvReac Type Severity Reaction Status Date / Time enoxaparin sodium Allergy Severe Rash Verified 07/15/17 17:44 [From Lovenox] History of Present Illness: 46 yo male with hx of heroin, cocaine and nicotine dependence is here seeking detox. Last detox [facility] July 2016. PMHX: HTN, hx OR 2009, [facility] and treated Denies suicidal / homicidal ideation or suicide attempts Longest period of period of sobriety 9 months, reports relapse two weeks ago Exam Limitations: No Limitations - Ebola screening Have you traveled outside of the country in the last 21 days: No Have you had contact with anyone from an Ebola affected area: No Have you been sick,other than usual withdrawal symptoms: No Do you have a fever: No - Review of Systems Constitutional: Chills, Changes in sleep EENT: reports: Nose Congestion Respiratory: reports: No Symptoms reported Cardiac: reports: No Symptoms Reported GI: reports: Poor Fluid Intake : reports: No Symptoms Reported Musculoskeletal: reports: Joint Pain Integumentary: reports: No Symptoms Reported Neuro: reports: No Symptoms reported Endocrine: reports: Excessive Sweating, Increased Thirst Hematology: reports: No Symptoms Reported Psychiatric: reports: Orientated x3, Anxious Other Systems: Reviewed and Negative Patient History - Patient Medical History Hx Anemia: No Hx Asthma: Yes (ON ALBUTEROL INHALER) Hx Chronic Obstructive Pulmonary Disease (COPD): No Hx Cancer: No Hx Cardiac Disorders: Yes (OLD OR IN 1999) Hx Congestive Heart Failure: No Hx Hypertension: Yes (ON MED) Hx Hypercholesterolemia: No Hx Pacemaker: No HX Cerebrovascular Accident: No Hx Seizures: No Hx Dementia: No Hx Diabetes: Yes (TYPE 2 DM) Hx Gastrointestinal Disorders: No Hx Liver Disease: No Hx Genitourinary Disorders: No Hx Sexually Transmitted Disorders: No Hx Renal Disease (ESRD): No Hx Thyroid Disease: No Hx Human Immunodeficiency Virus (HIV): Yes (SINCE 2010, [facility] ) Hx Hepatitis C: No Hx Depression: No Hx Suicide Attempt: No Hx Bipolar Disorder: No Hx Schizophrenia: No - Patient Surgical History Past Surgical History: Yes Hx Neurologic Surgery: No Hx Cataract Extraction: No Hx Cardiac Surgery: No Hx Lung Surgery: No Hx Breast Surgery: No Hx Breast Biopsy: No Hx Abdominal Surgery: No Hx Appendectomy: No Hx Cholecystectomy: No Hx Genitourinary Surgery: No Hx Section: No Hx Orthopedic Surgery: No Other Surgical History: IVC FILTER IN 2009 Anesthesia Reaction: No - PPD History Previous Implant?: Yes Date: 08/16/16 PPD to be Administered?: No - Reproductive History Patient is a Female of Child Bearing Age (11 -55 yrs old): No - Smoking Cessation Smoking history: Current every day smoker Have you smoked in the past 12 months: Yes Aproximately how many cigarettes per day: 4 Hx Chewing Tobacco Use: No Initiated information on smoking cessation: Yes 'Breaking Loose' booklet given: 07/15/17 - Substance & Tx. History Hx Alcohol Use: No Hx Substance Use: Yes Substance Use Type: Cocaine, Heroin Hx Substance Use Treatment: Yes ([facility] July 2016) - Substances Abused Heroin Route: Inhalation Frequency: Daily Amount used: 5 BAGS Age of first use: 28 Date of Last Use: 07/14/17 Cocaine Route: Smoking Frequency: Daily Amount used: 1 BAG Age of first use: 28 Date of Last Use: 07/14/17 Family Disease History - Family Disease History Family Disease History: Other: Father (ALCOHOL,) Admission Physical Exam S - Vital Signs Vital Signs: Vital Signs - 24 hr 07/15/17 14:47 Temperature 97 F L Pulse Rate 78 Respiratory 20 Rate Blood Pressure 185/110 - Physical General Appearance: Yes: Appropriately Dressed, Sweating, Anxious HEENTM: Yes: EOMI, Hearing grossly Normal, Normal ENT Inspection, Pharynx Normal , Tm's normal, Nasal Congestion Respiratory: Yes: Chest Non-Tender, Lungs Clear, Normal Breath Sounds, No Respiratory Distress, No Accessory Muscle Use Neck: Yes: Within Normal Limits Breast: Yes: Breast Exam Deferred Cardiology: Yes: Regular Rhythm, Regular Rate Abdominal: Yes: Normal Bowel Sounds, Non Tender, Soft, Protuberent Genitourinary: Yes: Within Normal Limits Back: Yes: Normal Inspection Musculoskeletal: Yes: full range of Motion, Gait Steady, Pelvis Stable, Joint swelling Extremities: Yes: Normal Capillary Refill, Normal Inspection, Normal Range of Motion, Non-Tender 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 NML intact, Fully Oriented, Alert, Motor Strength 5/5, Depressed Affect Integumentary: Yes: Normal Color, Warm, Diaphoresis Lymphatic: Yes: Within Normal Limits - Diagnostic (1) Elevated blood pressure reading in office with diagnosis of hypertension Current Visit: Yes Status: Acute (2) Cocaine dependence Current Visit: Yes Status: Acute Qualifiers: Substance use status: uncomplicated Qualified Code(s): F14.20 - Cocaine dependence, uncomplicated (3) Obese Current Visit: Yes Status: Chronic Qualifiers: Obesity classification: adult class 2 (BMI 35 - 39.9) Serious obesity comorbidity presence: with serious comorbidity (4) Nicotine dependence Current Visit: Yes Status: Acute Qualifiers: Nicotine product type: cigarettes Substance use status: in withdrawal Qualified Code(s): F17.213 - Nicotine dependence, cigarettes, with withdrawal (5) Opioid dependence with withdrawal Current Visit: Yes Status: Acute (6) Asthma Current Visit: Yes Status: Chronic Qualifiers: Asthma severity: mild intermittent Asthma complication type: uncomplicated Qualified Code(s): J45.20 - Mild intermittent asthma, uncomplicated (7) DM2 (diabetes mellitus, type 2) Current Visit: Yes Status: Chronic Qualifiers: Diabetes mellitus complication status: without complication (8) HIV (human immunodeficiency virus infection) Current Visit: Yes Status: Chronic (9) Hypertension Current Visit: Yes Status: Chronic Qualifiers: Hypertension type: essential hypertension Qualified Code(s): I10 - Essential (primary) hypertension (10) S/P IVC filter Current Visit: Yes Status: Chronic Cleared for Admission S - Detox or Rehab [facility] Level of Care: Medically Managed Detox Regimen/Protocol: Methadone [facility] Breath Alcohol Content Breath Alcohol Content: 0 Urine Drug Screen - Results Drug Screen Negative: No Urine Drug Screen Results: BRADLEY-Cocaine, OPI-Opiates
[2017-07-15] MEDS ORDERED: MENTHOL/PHENOL 1 EACH UD MM PRN (18:47)
[2017-07-15] MEDS ORDERED: guaiFENesin/D-METHORPHAN HB 10 ML UNIT-DOSE CUPS PO PRN (18:47)
[2017-07-15] MEDS ORDERED: IBUPROFEN 400 MG TABLET (FP) PO PRN (18:47)
[2017-07-15] MEDS ORDERED: diazePAM 5 MG TABLET PO PRN (18:47)
[2017-07-15] MEDS ORDERED: NICOTINE POLACRILEX 2 MG GUM BUC PRN (18:47)
[2017-07-15] MEDS ORDERED: LOPERAMIDE HCL 2 MG CAPSULE PO PRN (18:47)
[2017-07-15] MEDS ORDERED: MAGNESIUM HYDROX 2400MG/30ML ORAL SUSPENSION 30 ML CUP PO PRN (18:47)
[2017-07-15] MEDS ORDERED: MAG HYDROX/AL HYDROX/SIMETH 30 ML UNIT-DOSE CUP PO PRN (18:47)
[2017-07-15] MEDS ORDERED: MAGNESIUM CITRATE 300 ML BOTTLE PO PRN (18:47)
[2017-07-15] MEDS ORDERED: ACETAMINOPHEN 325 MG TABLET (FP) PO PRN (18:47)
[2017-07-15] MEDS ORDERED: ALBUTEROL SO4 18 GM HFA INHALER IH PRN (18:50)
[2017-07-15] MEDS ORDERED: METHADONE HCL 10 MG TABLET (FOR DETOX USE ONLY) PO ONE ×2 (19:00→23:00)
[2017-07-15] MEDS: HYDROCHLOROTHIAZIDE 25 MG TABLET (FP) PO SCH (20:25)
[2017-07-15] MEDS: metFORMIN HCL 500 MG TABLET (FP) PO SCH (20:25)
[2017-07-15] MEDS: LISINOPRIL 20 MG TABLET (FP) PO SCH (20:25)
[2017-07-15] MEDS: P-EPHED 60MG/TRIPROLIDI 2.5MG TABLET PO PRN (21:38)
[2017-07-15] MEDS ORDERED: ALBUTEROL SO4 18 GM HFA INHALER IH ONE (21:56)
[2017-07-15] MEDS: THIAMINE HCL 100 MG TABLET (FP) PO SCH (22:12)
[2017-07-15] MEDS ORDERED: ALBUTEROL SO4 0.083% IH SOL 2.5 MG/3 ML VIAL.NEB. NEB PRN (22:15)
[2017-07-15] MEDS: ASPIRIN 325 MG ENTERIC COATED TABLET (FP) PO SCH (22:58)
[2017-07-15 23:02] LABS: URINE APPEARANCE SLCLOUDY; URINE BILIRUBIN NEGATIVE (<2.0 mg/dL); URINE BLOOD NEGATIVE (NEGATIVE); URINE COLOR YELLOW; URINE GLUCOSE (UA) NEGATIVE (NEGATIVE); URINE KETONE NEGATIVE (NEGATIVE); URINE LEUK ESTERASE NEGATIVE (NEGATIVE); URINE NITRITE NEGATIVE (NEGATIVE); URINE UROBILINOGEN NEGATIVE mg/dL (0.2-1.0)
[2017-07-15 23:04] LABS: URINE PROTEIN 1+ (NEGATIVE)
[2017-07-15 23:07] LABS: EPI CELLS RARE /HPF (FEW); URINE BACTERIA RARE /hpf (NONE SEEN); URINE MUCUS RARE
[2017-07-16] MEDS ORDERED: ONDANSETRON *ODT* 4 MG TABLET SL ONE (08:59)
[2017-07-16] MEDS ORDERED: ONDANSETRON *ODT* 4 MG TABLET SL PRN (08:59)
--- NOTE | 2017-07-16 09:03 | PN ---
BHS COWS - Scale Resting Pulse: 1= [place] 81-100 Sweatin= Chills/Flushing Restless Observation: 1= Difficult to Sit Still Pupil Size: 1= Pupils >than Normal Bone or Joint Aches: 2= Severe Diffuse Aches Runny Nose/ Eye Tearin= Runny Nose/Eyes GI Upset > 30mins: 2= Nausea/Diarrhea Tremor Observation of Outstretched Hands: 2= Slight Tremor Visible Yawning Observation: 1= 1-2x During Session Anxiety or Irritability: 2=Irritable/Anxious Goose Flesh Skin: 0=Smooth Skin COWS Score: 15 BHS Progress Note (SOAP) Subjective: ansuea, sweats, itnerrutped sleep, naxiety, tremors, requestign additional medication agiated, nasal congestion Objective: 07/16/17 09:02 Vital Signs - 24 hr 07/15/17 07/15/17 07/16/17 14:47 22:00 03:30 Temperature 97 F L 97.9 F Pulse Rate 78 75 Respiratory 20 16 18 Rate Blood Pressure 185/110 157/104 07/16/17 07:20 Temperature 96.4 F L Pulse Rate 50 L Respiratory 18 Rate Blood Pressure 125/70 Laboratory Tests 07/15/17 07/15/17 07/16/17 18:00 21:02 07:14 POC Glucometer 169 123 Urine Color Yellow Urine Appearance Slcloudy Urine pH 6.0 Ur Specific [place] 1.024 Urine Protein 1+ H Urine Glucose (UA) Negative Urine Ketones Negative Urine Blood Negative Urine Nitrite Negative Urine Bilirubin Negative Urine Urobilinogen Negative Ur Leukocyte Esterase Negative Urine WBC (Auto) 8 Urine RBC (Auto) 1 Ur Epithelial Cells Rare Urine Bacteria Rare Urine Mucus Rare lab still epnding Assessment: 07/16/17 09:03 withdrawal sx - cont detox, fluids, encourage ambualtion, symptomatic relief of withdrawl ordered, give prn medications, check labs
[2017-07-16] MEDS ORDERED: METHADONE HCL 10 MG TABLET (FOR DETOX USE ONLY) PO ONE (10:00)
[2017-07-16] MEDS ORDERED: PANTOPRAZOLE 40 MG TABLET (FP) PO SCH (10:00)
--- NOTE | 2017-07-16 10:00 | EKG ---
Test Reason : Blood Pressure : / mmHG Vent. Rate : 070 BPM Atrial Rate : 070 BPM P-R Int : 184 ms QRS Dur : 094 ms QT Int : 426 ms P-R-T Axes : 039 -07 087 degrees QTc Int : 460 ms NORMAL SINUS RHYTHM VOLTAGE CRITERIA FOR LEFT VENTRICULAR HYPERTROPHY INFERIOR INFARCT (CITED ON OR BEFORE 14-AUG-2016) T WAVE ABNORMALITY, CONSIDER LATERAL ISCHEMIA ABNORMAL ECG WHEN COMPARED WITH ECG OF 14-AUG-2016 14:38, NO SIGNIFICANT CHANGE WAS FOUND Confirmed by OG BENSON MD ([id number]) on 07/16/2017 9:59:53 AM Referred By: Confirmed By:OG BENSON MD
[2017-07-16] MEDS: HYDROCHLOROTHIAZIDE 25 MG TABLET (FP) PO SCH (10:23)
[2017-07-16] MEDS: metFORMIN HCL 500 MG TABLET (FP) PO SCH (10:23)
[2017-07-16] MEDS: ASPIRIN 325 MG ENTERIC COATED TABLET (FP) PO SCH (10:23)
[2017-07-16] MEDS: amLODIPine BESYLATE 5 MG TABLET (FP) PO SCH (10:23)
[2017-07-16] MEDS: LISINOPRIL 20 MG TABLET (FP) PO SCH (10:23)
[2017-07-16] MEDS: PRENATAL VITAMINS W/ FOLIC ACID TABLET (FP) PO SCH (10:24)
[2017-07-16] MEDS: NAPROXEN 500 MG TABLET (FP) PO SCH ×2 (10:25→22:31)
--- NOTE | 2017-07-16 10:34 | CONSULT ---
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 This is one of multiple admissions for patient. Pt. admitted to for alcohol and cocaine dependence. Substance Abuse History: Following information confirmed with Mr. Browne: Smoking Cessation. Smoking history: Current every day smoker. Have you smoked in the past 12 months: Yes. Aproximately how many cigarettes per day: 4. Hx Chewing Tobacco Use: No. Initiated information on smoking cessation: Yes. ' Breaking Loose' booklet given: 07/15/17. - Substance & Tx. History. Hx Alcohol Use: No. Hx Substance Use: Yes. Substance Use Type: Cocaine, Heroin. Hx Substance Use Treatment: Yes ([facility] July 2016). - Substances Abused. Heroin. Route: Inhalation. Frequency: Daily. Amount used: 5 BAGS. Age of first use: 28. Date of Last Use: 07/14/17. Cocaine. Route: Smoking. Frequency: Daily. Amount used: 1 BAG. Age of first use: 28. Date of Last Use : 07/14/17 Medical History: Asthma, Myocardial infarction in 1999, Hypertension, Diabetes, HIV in 2000 Psychiatric History: Pt. denies h/o psychiatric hospitalizations, outpatient care, and suicide attempt. Physical/Sexual Abuse/Trauma History: Denies. Mental Status Exam - Mental Status Exam Alert and Oriented to: Time, Place, Person Cognitive Function: Good Patient Appearance: Well Groomed Mood: Euthymic Affect: Mood Congruent Patient Behavior: Cooperative Speech Pattern: Appropriate Voice Loudness: Normal Thought Process: Goal Oriented Thought Disorder: Not Present Hallucinations: Denies Suicidal Ideation: Denies Homicidal Ideation: Denies Insight/Judgement: Poor Sleep: Fair Appetite: Fair Muscle strength/Tone: Normal Gait/Station: Normal Psychiatric Findings - Problem List ([place] 1, 2,3) (1) Cocaine dependence Current Visit: Yes Status: Acute Qualifiers: Substance use status: uncomplicated Qualified Code(s): F14.20 - Cocaine dependence, uncomplicated (2) Nicotine dependence Current Visit: Yes Status: Chronic Qualifiers: Nicotine product type: cigarettes Substance use status: in withdrawal Qualified Code(s): F17.213 - Nicotine dependence, cigarettes, with withdrawal (3) Opioid dependence with withdrawal Current Visit: Yes Status: Acute - Initial Treatment Plan Initial Treatment Plan: Psychoeducation provided. Detoxification provided. Observation.
[2017-07-16 10:38] LABS: HEMATOCRIT 45.3 % (35.4-49); HEMOGLOBIN 14.8 GM/dL (11.7-16.9); MCH 28.2 pg (25.7-33.7); MCHC 32.7 g/dl (32.0-35.9); MEAN CELL VOLUME 86.2 fl (80-96); MEAN PLT VOLUME 9.5 fl (7.5-11.1); PLATELET COUNT 148 K/MM3 (134-434); RBC 5.25 M/mm3 (4.00-5.60); RDW 13.8 % (11.9-15.9); WHITE BLOOD COUNT 3.9 K/mm3 (4.0-10.0)
[2017-07-16 10:53] LABS: CHLORIDE 99 mmol/L (98-107); POTASSIUM 3.2 mmol/L (3.5-5.1); SGOT/AST 16 U/L (15-37); SGPT/ALT 21 U/L (12-78); SODIUM 140 mmol/L (136-145)
[2017-07-16 10:59] LABS: ALBUMIN 3.3 g/dl (3.4-5.0); ALK PHOS 82 U/L (45-117); ANION GAP 8 (8-16); BILIRUBIN,TOTAL 0.4 mg/dL (0.2-1.0); BLOOD UREA NITROGEN 18 mg/dL (7-18); CALCIUM 9.2 mg/dL (8.5-10.1); CO2 33 mmol/L (21-32); CREATININE 1.4 mg/dL (0.7-1.3); GLUCOSE,RANDOM 130 mg/dL (74-106); TOT PROT 6.5 g/dl (6.4-8.2)
[2017-07-16] MEDS ORDERED: RANITIDINE HCL 150 MG TABLET (FP) PO SCH (12:00)
[2017-07-16] MEDS: P-EPHED 60MG/TRIPROLIDI 2.5MG TABLET PO PRN (12:02)
[2017-07-16] MEDS: CYCLOBENZAPRINE HCL 10 MG TABLET (FP) PO SCH ×2 (15:03→22:34)
[2017-07-16] MEDS: GABAPENTIN 100 MG CAPSULE (FP) PO SCH ×2 (15:03→22:33)
--- NOTE | 2017-07-16 15:17 | PN ---
BHS Progress Note Note: complaint of nasal congestion,flonase nasal spray 1 puff bid both nostril
[2017-07-16] MEDS: MELATONIN 5 MG TABLETS PO PRN (22:30)
[2017-07-16] MEDS: THIAMINE HCL 100 MG TABLET (FP) PO SCH (22:33)
[2017-07-16] MEDS: FLUTICASONE PROP 0.05% 16 GM NASAL SPRAY NS SCH (22:33)
[2017-07-17] MEDS: CYCLOBENZAPRINE HCL 10 MG TABLET (FP) PO SCH ×3 (05:24→22:12)
[2017-07-17] MEDS: GABAPENTIN 100 MG CAPSULE (FP) PO SCH ×3 (05:24→22:13)
[2017-07-17] MEDS ORDERED: POTASSIUM CHLORIDE TABS 20 MEQ TABLET.ER (FP) PO ONE (07:02)
--- NOTE | 2017-07-17 07:03 | PN ---
BHS Progress Note Note: kdur 40 meq x 1 for k+ 3.2 repeat cmp in 24 hours
[2017-07-17] MEDS ORDERED: RITONAVIR 100 MG TABLET PO SCH (10:00)
[2017-07-17] MEDS ORDERED: METHADONE HCL 5 MG TABLET (FOR DETOX USE ONLY) PO ONE (10:00)
[2017-07-17] MEDS ORDERED: EMTRICITABINE 200MG/TENOFOVIR 300MG PO SCH (10:00)
[2017-07-17] MEDS: HYDROCHLOROTHIAZIDE 25 MG TABLET (FP) PO SCH (10:26)
[2017-07-17] MEDS: LISINOPRIL 20 MG TABLET (FP) PO SCH (10:26)
[2017-07-17] MEDS: FLUTICASONE PROP 0.05% 16 GM NASAL SPRAY NS SCH ×2 (10:26→22:12)
[2017-07-17] MEDS: amLODIPine BESYLATE 5 MG TABLET (FP) PO SCH (10:26)
[2017-07-17] MEDS: ASPIRIN 325 MG ENTERIC COATED TABLET (FP) PO SCH (10:26)
[2017-07-17] MEDS: metFORMIN HCL 500 MG TABLET (FP) PO SCH (10:26)
[2017-07-17] MEDS: NAPROXEN 500 MG TABLET (FP) PO SCH ×2 (10:26→22:13)
[2017-07-17] MEDS: PRENATAL VITAMINS W/ FOLIC ACID TABLET (FP) PO SCH (10:27)
--- NOTE | 2017-07-17 15:43 | PN ---
BHS COWS - Scale Resting Pulse: 0= [place] 80 or Below Sweatin=Flushed/Facial Moisture Restless Observation: 1= Difficult to Sit Still Pupil Size: 0= Normal to Room Light Bone or Joint Aches: 1= Mild Discomfort Runny Nose/ Eye Tearin= Nasal Congestion GI Upset > 30mins: 1= Stomach Cramp Tremor Observation of Outstretched Hands: 2= Slight Tremor Visible Yawning Observation: 1= 1-2x During Session Anxiety or Irritability: 2=Irritable/Anxious Goose Flesh Skin: 0=Smooth Skin COWS Score: 11 S Progress Note (SOAP) Subjective: Anxious sleep disturbance Objective: 07/17/17 15:41 A & O x 3 Ambulating steadily on unit Vital Signs Temperature 97.9 F 07/17/17 14:30 Pulse Rate 57 L 07/17/17 14:30 Respiratory Rate 18 07/17/17 14:30 Blood Pressure 143/88 07/17/17 14:30 O2 Sat by Pulse Oximetry (%) Laboratory Last Values WBC 3.9 K/mm3 (4.0-10.0) L 07/16/17 07:00 RBC 5.25 M/mm3 (4.00-5.60) 07/16/17 07:00 Hgb 14.8 GM/dL (11.7-16.9) 07/16/17 07:00 Hct 45.3 % (35.4-49) 07/16/17 07:00 MCV 86.2 fl (80-96) 07/16/17 07:00 MCH 28.2 pg (25.7-33.7) 07/16/17 07:00 MCHC 32.7 g/dl (32.0-35.9) 07/16/17 07:00 RDW 13.8 % (11.9-15.9) 07/16/17 07:00 Plt Count 148 K/MM3 (134-434) 07/16/17 07:00 MPV 9.5 fl (7.5-11.1) D 07/16/17 07:00 Sodium 140 mmol/L (136-145) 07/16/17 07:00 Potassium 3.2 mmol/L (3.5-5.1) L 07/16/17 07:00 Chloride 99 mmol/L (98-107) 07/16/17 07:00 Carbon Dioxide 33 mmol/L (21-32) H 07/16/17 07:00 Anion Gap 8 (8-16) 07/16/17 07:00 BUN 18 mg/dL (7-18) 07/16/17 07:00 Creatinine 1.4 mg/dL (0.7-1.3) H 07/16/17 07:00 Creat Clearance w eGFR 54.09 (>60) 07/16/17 07:00 POC Glucometer 150 UNITS (80-120) 07/17/17 06:22 Random Glucose 130 mg/dL (74-106) H 07/16/17 07:00 Calcium 9.2 mg/dL (8.5-10.1) 07/16/17 07:00 Total Bilirubin 0.4 mg/dL (0.2-1.0) D 07/16/17 07:00 AST 16 U/L (15-37) 07/16/17 07:00 ALT 21 U/L (12-78) 07/16/17 07:00 Alkaline Phosphatase 82 U/L (45-117) 07/16/17 07:00 Total Protein 6.5 g/dl (6.4-8.2) 07/16/17 07:00 Albumin 3.3 g/dl (3.4-5.0) L 07/16/17 07:00 Urine Color Yellow 07/15/17 21:02 Urine Appearance Slcloudy 07/15/17 21:02 Urine pH 6.0 (5.0-8.0) 07/15/17 21:02 Ur Specific [place] 1.024 (1.001-1.035) 07/15/17 21:02 Urine Protein 1+ (NEGATIVE) H 07/15/17 21:02 Urine Glucose (UA) Negative (NEGATIVE) 07/15/17 21:02 Urine Ketones Negative (NEGATIVE) 07/15/17 21:02 Urine Blood Negative (NEGATIVE) 07/15/17 21:02 Urine Nitrite Negative (NEGATIVE) 07/15/17 21:02 Urine Bilirubin Negative (<2.0 mg/dL) 07/15/17 21:02 Urine Urobilinogen Negative mg/dL (0.2-1.0) 07/15/17 21:02 Ur Leukocyte Esterase Negative (NEGATIVE) 07/15/17 21:02 Urine WBC (Auto) 8 /hpf (3-5) 07/15/17 21:02 Urine RBC (Auto) 1 /hpf (0-3) 07/15/17 21:02 Ur Epithelial Cells Rare /HPF (FEW) 07/15/17 21:02 Urine Bacteria Rare /hpf (NONE SEEN) 07/15/17 21:02 Urine Mucus Rare 07/15/17 21:02 RPR Titer Nonreactive (NONREACTIVE) 07/16/17 07:00 labs noted, low potassium Assessment: 07/17/17 15:43 withdrawal sx potassium already supplemented Plan: continue detox Increase hydration
[2017-07-17] MEDS: THIAMINE HCL 100 MG TABLET (FP) PO SCH (22:10)
[2017-07-17] MEDS: MELATONIN 5 MG TABLETS PO PRN (22:12)
[2017-07-18] MEDS: GABAPENTIN 100 MG CAPSULE (FP) PO SCH ×3 (06:13→22:09)
[2017-07-18] MEDS: CYCLOBENZAPRINE HCL 10 MG TABLET (FP) PO SCH ×3 (06:15→22:09)
[2017-07-18] MEDS ORDERED: METHADONE HCL 5 MG TABLET (FOR DETOX USE ONLY) PO ONE (10:00)
[2017-07-18] MEDS: LISINOPRIL 20 MG TABLET (FP) PO SCH (10:05)
[2017-07-18] MEDS: metFORMIN HCL 500 MG TABLET (FP) PO SCH (10:05)
[2017-07-18] MEDS: NAPROXEN 500 MG TABLET (FP) PO SCH ×2 (10:06→22:09)
[2017-07-18] MEDS: HYDROCHLOROTHIAZIDE 25 MG TABLET (FP) PO SCH (10:06)
[2017-07-18] MEDS: ASPIRIN 325 MG ENTERIC COATED TABLET (FP) PO SCH (10:06)
[2017-07-18] MEDS: FLUTICASONE PROP 0.05% 16 GM NASAL SPRAY NS SCH ×2 (10:06→22:08)
[2017-07-18] MEDS: amLODIPine BESYLATE 5 MG TABLET (FP) PO SCH (10:07)
[2017-07-18] MEDS: PRENATAL VITAMINS W/ FOLIC ACID TABLET (FP) PO SCH (10:07)
[2017-07-18 10:16] LABS: CHLORIDE 99 mmol/L (98-107); POTASSIUM 3.7 mmol/L (3.5-5.1); SODIUM 138 mmol/L (136-145)
[2017-07-18 10:24] LABS: ALBUMIN 3.8 g/dl (3.4-5.0); ALK PHOS 89 U/L (45-117); ANION GAP 6 (8-16); BILIRUBIN,TOTAL 0.5 mg/dL (0.2-1.0); BLOOD UREA NITROGEN 18 mg/dL (7-18); CALCIUM 8.8 mg/dL (8.5-10.1); CO2 33 mmol/L (21-32); CREATININE 1.4 mg/dL (0.7-1.3); GLUCOSE,RANDOM 151 mg/dL (74-106); SGOT/AST 12 U/L (15-37); SGPT/ALT 17 U/L (12-78); TOT PROT 7.2 g/dl (6.4-8.2)
--- NOTE | 2017-07-18 13:27 | PN ---
S Progress Note (SOAP) Subjective: feeling better less opioid withdrawal sx denies body pain jont ache no tremor no gi distress less sweat sleep throughout the night wants to begin aftercare 07/19/17 Objective: 07/18/17 13:27 Vital Signs Temperature 97.7 F 07/18/17 10:00 Pulse Rate 57 L 07/18/17 10:00 Respiratory Rate 18 07/18/17 10:00 Blood Pressure 130/90 07/18/17 10:00 O2 Sat by Pulse Oximetry (%) Laboratory Last Values WBC 3.9 K/mm3 (4.0-10.0) L 07/16/17 07:00 RBC 5.25 M/mm3 (4.00-5.60) 07/16/17 07:00 Hgb 14.8 GM/dL (11.7-16.9) 07/16/17 07:00 Hct 45.3 % (35.4-49) 07/16/17 07:00 MCV 86.2 fl (80-96) 07/16/17 07:00 MCH 28.2 pg (25.7-33.7) 07/16/17 07:00 MCHC 32.7 g/dl (32.0-35.9) 07/16/17 07:00 RDW 13.8 % (11.9-15.9) 07/16/17 07:00 Plt Count 148 K/MM3 (134-434) 07/16/17 07:00 MPV 9.5 fl (7.5-11.1) D 07/16/17 07:00 Sodium 138 mmol/L (136-145) 07/18/17 06:00 Potassium 3.7 mmol/L (3.5-5.1) 07/18/17 06:00 Chloride 99 mmol/L (98-107) 07/18/17 06:00 Carbon Dioxide 33 mmol/L (21-32) H 07/18/17 06:00 Anion Gap 6 (8-16) L 07/18/17 06:00 BUN 18 mg/dL (7-18) 07/18/17 06:00 Creatinine 1.4 mg/dL (0.7-1.3) H 07/18/17 06:00 Creat Clearance w eGFR 54.09 (>60) 07/18/17 06:00 POC Glucometer 135 UNITS (80-120) 07/18/17 06:14 Random Glucose 151 mg/dL (74-106) H 07/18/17 06:00 Calcium 8.8 mg/dL (8.5-10.1) 07/18/17 06:00 Total Bilirubin 0.5 mg/dL (0.2-1.0) D 07/18/17 06:00 AST 12 U/L (15-37) L D 07/18/17 06:00 ALT 17 U/L (12-78) 07/18/17 06:00 Alkaline Phosphatase 89 U/L (45-117) 07/18/17 06:00 Total Protein 7.2 g/dl (6.4-8.2) 07/18/17 06:00 Albumin 3.8 g/dl (3.4-5.0) 07/18/17 06:00 Urine Color Yellow 07/15/17 21:02 Urine Appearance Slcloudy 07/15/17 21:02 Urine pH 6.0 (5.0-8.0) 07/15/17 21:02 Ur Specific [place] 1.024 (1.001-1.035) 07/15/17 21:02 Urine Protein 1+ (NEGATIVE) H 07/15/17 21:02 Urine Glucose (UA) Negative (NEGATIVE) 07/15/17 21:02 Urine Ketones Negative (NEGATIVE) 07/15/17 21:02 Urine Blood Negative (NEGATIVE) 07/15/17 21:02 Urine Nitrite Negative (NEGATIVE) 07/15/17 21:02 Urine Bilirubin Negative (<2.0 mg/dL) 07/15/17 21:02 Urine Urobilinogen Negative mg/dL (0.2-1.0) 07/15/17 21:02 Ur Leukocyte Esterase Negative (NEGATIVE) 07/15/17 21:02 Urine WBC (Auto) 8 /hpf (3-5) 07/15/17 21:02 Urine RBC (Auto) 1 /hpf (0-3) 07/15/17 21:02 Ur Epithelial Cells Rare /HPF (FEW) 07/15/17 21:02 Urine Bacteria Rare /hpf (NONE SEEN) 07/15/17 21:02 Urine Mucus Rare 07/15/17 21:02 RPR Titer Nonreactive (NONREACTIVE) 07/16/17 07:00 07/18/17 13:28 K+ 3.7 Assessment: 07/18/17 13:29 mild withdrawal sx Plan: medically supervised detox
--- NOTE | 2017-07-18 13:51 | PN ---
[facility] Progress Note Note: received lab called need urine culture magdalene
[2017-07-18] MEDS: MELATONIN 5 MG TABLETS PO PRN (22:08)
[2017-07-18] MEDS: THIAMINE HCL 100 MG TABLET (FP) PO SCH (22:08)
[2017-07-19] MEDS: GABAPENTIN 100 MG CAPSULE (FP) PO SCH ×2 (05:40→06:03)
[2017-07-19] MEDS: CYCLOBENZAPRINE HCL 10 MG TABLET (FP) PO SCH ×2 (05:40→06:03)
[2017-07-19] MEDS ORDERED: METHADONE HCL 5 MG TABLET PO ONE (06:00)
[2017-07-19 07:13] VITALS: BP 138/93; PULSE 53; TEMP 97.7
--- NOTE | 2017-07-19 09:10 | DS ---
[facility] Detox Discharge Summary Admission Date: 07/15/17 Discharge Date: 07/19/17 - History Present History: Opioid Dependence Additional Comments: 46 years old male admitted 07/15/17 for opioid detox completed opioid detox regimen tolerated well denies opioid withdrawal sx wants to return to work today patient wants to follow up with [facility] for medical issue and addiction aftercare patient is alert oriented x 3 no acute distress had breakfast and showered " feel good" - Physical Exam Results Vital Signs: Vital Signs Temperature 97.7 F 07/19/17 05:00 Pulse Rate 53 L 07/19/17 05:00 Respiratory Rate 20 07/19/17 05:00 Blood Pressure 138/93 07/19/17 05:00 O2 Sat by Pulse Oximetry (%) Pertinent Admission Physical Exam Findings: withdrawal sx Vital Signs Temperature 97.7 F 07/19/17 05:00 Pulse Rate 53 L 07/19/17 05:00 Respiratory Rate 20 07/19/17 05:00 Blood Pressure 138/93 07/19/17 05:00 O2 Sat by Pulse Oximetry (%) Laboratory Last Values WBC 3.9 K/mm3 (4.0-10.0) L 07/16/17 07:00 RBC 5.25 M/mm3 (4.00-5.60) 07/16/17 07:00 Hgb 14.8 GM/dL (11.7-16.9) 07/16/17 07:00 Hct 45.3 % (35.4-49) 07/16/17 07:00 MCV 86.2 fl (80-96) 07/16/17 07:00 MCH 28.2 pg (25.7-33.7) 07/16/17 07:00 MCHC 32.7 g/dl (32.0-35.9) 07/16/17 07:00 RDW 13.8 % (11.9-15.9) 07/16/17 07:00 Plt Count 148 K/MM3 (134-434) 07/16/17 07:00 MPV 9.5 fl (7.5-11.1) D 07/16/17 07:00 Sodium 138 mmol/L (136-145) 07/18/17 06:00 Potassium 3.7 mmol/L (3.5-5.1) 07/18/17 06:00 Chloride 99 mmol/L (98-107) 07/18/17 06:00 Carbon Dioxide 33 mmol/L (21-32) H 07/18/17 06:00 Anion Gap 6 (8-16) L 07/18/17 06:00 BUN 18 mg/dL (7-18) 07/18/17 06:00 Creatinine 1.4 mg/dL (0.7-1.3) H 07/18/17 06:00 Creat Clearance w eGFR 54.09 (>60) 07/18/17 06:00 POC Glucometer 135 UNITS (80-120) 07/18/17 06:14 Random Glucose 151 mg/dL (74-106) H 07/18/17 06:00 Calcium 8.8 mg/dL (8.5-10.1) 07/18/17 06:00 Total Bilirubin 0.5 mg/dL (0.2-1.0) D 07/18/17 06:00 AST 12 U/L (15-37) L D 07/18/17 06:00 ALT 17 U/L (12-78) 07/18/17 06:00 Alkaline Phosphatase 89 U/L (45-117) 07/18/17 06:00 Total Protein 7.2 g/dl (6.4-8.2) 07/18/17 06:00 Albumin 3.8 g/dl (3.4-5.0) 07/18/17 06:00 Urine Color Yellow 07/15/17 21:02 Urine Appearance Slcloudy 07/15/17 21:02 Urine pH 6.0 (5.0-8.0) 07/15/17 21:02 Ur Specific [place] 1.024 (1.001-1.035) 07/15/17 21:02 Urine Protein 1+ (NEGATIVE) H 07/15/17 21:02 Urine Glucose (UA) Negative (NEGATIVE) 07/15/17 21:02 Urine Ketones Negative (NEGATIVE) 07/15/17 21:02 Urine Blood Negative (NEGATIVE) 07/15/17 21:02 Urine Nitrite Negative (NEGATIVE) 07/15/17 21:02 Urine Bilirubin Negative (<2.0 mg/dL) 07/15/17 21:02 Urine Urobilinogen Negative mg/dL (0.2-1.0) 07/15/17 21:02 Ur Leukocyte Esterase Negative (NEGATIVE) 07/15/17 21:02 Urine WBC (Auto) 8 /hpf (3-5) 07/15/17 21:02 Urine RBC (Auto) 1 /hpf (0-3) 07/15/17 21:02 Ur Epithelial Cells Rare /HPF (FEW) 07/15/17 21:02 Urine Bacteria Rare /hpf (NONE SEEN) 07/15/17 21:02 Urine Mucus Rare 07/15/17 21:02 RPR Titer Nonreactive (NONREACTIVE) 07/16/17 07:00 lab noted - Treatment Hospital Course: Detox Protocol Followed, Detoxed Safely, Responded well, Discharged Condition Good, Rehab Referral Accepted Patient has Accepted a Rehab Referral to: [facility] addiction medicine - Medication Discharge Medications: Ambulatory Orders Aspirin [Aspirin EC] 325 mg PO DAILY 08/14/16 Emtricitab/Rilpiviri/Tenof Ala [Odefsey Tablet] 1 each PO DAILY 08/14/16 Albuterol Sulfate Inhaler - [Ventolin HFA Inhaler -] 2 inh PO Q4H PRN #1 inhaler 07/18/17 Amlodipine Besylate 5 mg PO DAILY #30 tablet 07/18/17 Hydrochlorothiazide 25 mg PO DAILY #30 tablet 07/18/17 Lisinopril [Prinivil] 20 mg PO DAILY #30 tablet 07/18/17 Metoprolol Succinate [Toprol XL -] 50 mg PO DAILY #30 tab.sr.24h 07/18/17 metFORMIN HCL [Glucophage -] 500 mg PO DAILY #30 tablet 07/18/17 - Diagnosis (1) Alcohol dependence with uncomplicated withdrawal Status: Acute (2) Asthma Status: Chronic Qualifiers: Asthma severity: mild Asthma complication type: uncomplicated (3) DM2 (diabetes mellitus, type 2) Status: Chronic Qualifiers: Diabetes mellitus complication status: without complication (4) HIV (human immunodeficiency virus infection) Status: Chronic (5) Hepatitis C Status: Chronic Qualifiers: Viral hepatitis chronicity: unspecified Hepatic coma status: without hepatic coma Qualified Code(s): B19.20 - Unspecified viral hepatitis C without hepatic coma (6) Hypertension Status: Chronic Qualifiers: Hypertension type: essential hypertension Qualified Code(s): I10 - Essential (primary) hypertension (7) Old HI (myocardial infarction) Status: Suspected - AMA Did Patient Leave Against Medical Advice: No
[2017-07-19] MEDS ORDERED: METHADONE HCL 10 MG TABLET (FOR DETOX USE ONLY) PO ONE (10:00)
[2017-07-20] MEDS ORDERED: METHADONE HCL 5 MG TABLET (FOR DETOX USE ONLY) PO ONE (06:00)
== END 2017-07-19 07:38 | disposition home or self-care (01) | DRG 773 ==
LOC: YASAS 14:14 → Y6N 16:55
PROVIDERS: ADMIT Internal Medicine; ATTEND Internal Medicine
PROC: HZ2ZZZZ Detoxification Services for Substance Abuse Treatment (ICD-10-PCS; principal; 2017-07-15)
DX: F11.23 Opioid dependence with withdrawal (principal); F10.230 Alcohol dependence with withdrawal, uncomplicated; F14.20 Cocaine dependence, uncomplicated; F17.210 Nicotine dependence, cigarettes, uncomplicated; I10 Essential (primary) hypertension; J45.20 Mild intermittent asthma, uncomplicated; E11.9 Type 2 diabetes mellitus without complications; B18.2 Chronic viral hepatitis C; Z21 Asymptomatic human immunodeficiency virus [HIV] infection status; Z68.35 Body mass index [BMI] 35.0-35.9, adult; Z95.828 Presence of other vascular implants and grafts; E66.9 Obesity, unspecified
CPT/HCPCS: 36415; 80053; 81003; 81015; 82962; 85027; 86593; 87086; 93005; 93010

== ENCOUNTER 2018-06-10 14:12 | Inpatient (IN) | payer OTHER ==
[2018-06-10 15:26] VITALS: BMI 36.6
--- NOTE | 2018-06-10 17:41 | HP ---
COWS - Scale Resting Pulse: 1= DE 81-100 Sweatin= Chills/Flushing Restless Observation: 1= Difficult to Sit Still Pupil Size: 0= Normal to Room Light Bone or Joint Aches: 4=Acute Joint/Muscle Pain Runny Nose/ Eye Tearin= Runny Nose/Eyes GI Upset > 30mins: 2= Nausea/Diarrhea Tremor Observation: 0= None Yawning Observation: 0= None Anxiety or Irritability: 2=Irritable/Anxious Goose Flesh Skin: 0=Smooth Skin COWS Score: 13 CIWA Score - Admission Criteria OASAS Guidelines: Admission for Medically Managed Detox: Requires at least one of the followin. CIWA greater than 12 2. Seizures within the past 24 hours 3. Delirium tremens within the past 24 hours 4. Hallucinations within the past 24 hours 5. Acute intervention needed for co occurring medical disorder 6. Acute intervention needed for co occurring psychiatric disorder 7. Severe withdrawal that cannot be handled at a lower level of care (continued vomiting, continued diarrhea, abnormal vital signs) requiring intravenous medication and/or fluids 8. Admission ROS [facility] Chief Complaint: " I want to get better " Allergies/Adverse Reactions: Allergies Allergy/AdvReac Type Severity Reaction Status Date / Time enoxaparin sodium Allergy Severe Rash Verified 06/10/18 16:39 [From Lovenox] History of Present Illness: patient here requesting detox from opiate use , reports 1 bundle/day via inhalation currently s/p relapse x 1 year , IVDU in the past on [facility] , , reports first age of use 28 , latest use yesterday , current symptoms as above , most recent detox at this facility , denies OD , longest sobriety 4 years w/ meetings. 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 ) Exam Limitations: Clinical Condition, Intoxication - Ebola screening Have you traveled outside of the country in the last 21 days: No Have you had contact with anyone from an Ebola affected area: No Have you been sick,other than usual withdrawal symptoms: No Do you have a fever: No - Review of Systems Constitutional: See HPI EENT: reports: See HPI, Other (reading glasses) Respiratory: reports: No Symptoms reported, Other (h/o asthma) Cardiac: reports: No Symptoms Reported GI: reports: See HPI : reports: No Symptoms Reported Musculoskeletal: reports: Muscle Pain Integumentary: reports: No Symptoms Reported Neuro: reports: No Symptoms reported Endocrine: reports: See HPI Psychiatric: reports: Orientated x3, Anxious Patient History - Patient Medical History Hx Anemia: No Hx Asthma: Yes (Pt is on MDI) Hx Chronic Obstructive Pulmonary Disease (COPD): No Hx Cancer: No Hx Cardiac Disorders: Yes (cad) Hx Congestive Heart Failure: No Hx Hypertension: Yes (on meds) Hx Hypercholesterolemia: No Hx Pacemaker: No HX Cerebrovascular Accident: No Hx Seizures: No Hx Dementia: No Hx Diabetes: Yes Hx Gastrointestinal Disorders: No Hx Liver Disease: No Hx Genitourinary Disorders: No Hx Sexually Transmitted Disorders: No Hx Renal Disease (ESRD): No Hx Thyroid Disease: No Hx Human Immunodeficiency Virus (HIV): Yes (SINCE 2010, Ovdes ) Hx Hepatitis C: No Hx Depression: No Hx Suicide Attempt: No Hx Bipolar Disorder: No Hx Schizophrenia: No - Patient Surgical History Past Surgical History: Yes Hx Neurologic Surgery: No Hx Cataract Extraction: No Hx Cardiac Surgery: Yes (Cardiac cath stent in 2009) Hx Lung Surgery: No Hx Breast Surgery: No Hx Breast Biopsy: No Hx Abdominal Surgery: No Hx Appendectomy: No Hx Cholecystectomy: No Hx Genitourinary Surgery: No Hx Section: No Hx Orthopedic Surgery: No Other Surgical History: IVC FILTER IN 2009 Anesthesia Reaction: No - PPD History Previous Implant?: Yes Documented Results: Negative w/o proof Implanted On Prior R Admission?: Yes Date: 08/16/16 - Smoking Cessation Smoking history: Current every day smoker Have you smoked in the past 12 months: Yes Aproximately how many cigarettes per day: 6 Hx Chewing Tobacco Use: No Initiated information on smoking cessation: No - Substances Abused Heroin Route: Inhalation Frequency: Daily Amount used: 10 BAGS Age of first use: 28 Date of Last Use: 06/10/18 Crack Route: Smoking Frequency: Daily Amount used: 2-3 BAGS Age of first use: 28 Date of Last Use: 06/09/18 Family Disease History - Family Disease History Family Disease History: Other: Father (ALCOHOL,) Admission Physical Exam S - Vital Signs Vital Signs: Vital Signs - 24 hr 06/10/18 15:25 Temperature 96.4 F L Pulse Rate 92 H Respiratory 20 Rate Blood Pressure 162/116 H - Physical General Appearance: Yes: Disheveled, Mild Distress, Intoxicated HEENTM: Yes: EOMI, Hearing grossly Normal, Normocephalic, Normal Voice, Nasal Congestion, Rhinorrhea Respiratory: Yes: Chest Non-Tender, Lungs Clear, Normal Breath Sounds Neck: Yes: No masses,lesions,Nodules, Trachea in good position Cardiology: Yes: Regular Rhythm, Regular Rate, S1, S2 Abdominal: Yes: Normal Bowel Sounds, Soft Genitourinary: Yes: Within Normal Limits Back: Yes: Normal Inspection Musculoskeletal: Yes: Other (staggering gait) Extremities: Yes: Normal Capillary Refill, Non-Tender, Pedal Edema Neurological: Yes: Motor Strength 5/5, Other (drowsy , awakened by verbal stimuli) Integumentary: Yes: Dry, Warm, Pitting Edema, Track Bautista, Other (posterior parietal left scarring from old pressure ulcer) - Diagnostic (1) Cocaine dependence Current Visit: Yes Status: Chronic Qualifiers: Substance use status: uncomplicated Qualified Code(s): F14.20 - Cocaine dependence, uncomplicated (2) Opioid dependence with withdrawal Current Visit: Yes Status: Acute (3) Nicotine dependence Current Visit: Yes Status: Chronic Qualifiers: Nicotine product type: cigarettes Substance use status: in withdrawal Qualified Code(s): F17.213 - Nicotine dependence, cigarettes, with withdrawal BHS Breath Alcohol Content Breath Alcohol Content: 0 Urine Drug Screen - Results Drug Screen Negative: No Urine Drug Screen Results: BRADLEY-Cocaine, OPI-Opiates Inpatient Rehab Admission - Rehab Decision to Admit Inpatient rehab admission?: No
[2018-06-10] MEDS ORDERED: MENTHOL/PHENOL 1 EACH UD MM PRN (17:55)
[2018-06-10] MEDS ORDERED: ACETAMINOPHEN 325 MG TABLET (FP) PO PRN ×2 (17:55)
[2018-06-10] MEDS ORDERED: NICOTINE POLACRILEX 2 MG GUM BUC PRN (17:55)
[2018-06-10] MEDS ORDERED: BISMUTH SUBSALICYLATE 524 MG/30 ML UD PO PRN (17:55)
[2018-06-10] MEDS ORDERED: NALOXONE HCL 0.4 MG/ML VIAL IVPUSH PRN (17:55)
[2018-06-10] MEDS ORDERED: IBUPROFEN 400 MG TABLET (FP) PO PRN (17:55)
[2018-06-10] MEDS ORDERED: MAGNESIUM HYDROX 2400MG/30ML ORAL SUSPENSION 30 ML CUP PO PRN (17:55)
[2018-06-10] MEDS ORDERED: MAG HYDROX/AL HYDROX/SIMETH 30 ML UNIT-DOSE CUP PO PRN (17:55)
[2018-06-10] MEDS ORDERED: MAGNESIUM CITRATE 300 ML BOTTLE PO PRN (17:55)
[2018-06-10] MEDS: amLODIPine BESYLATE 5 MG TABLET (FP) PO SCH (19:51)
[2018-06-10] MEDS: ALBUTEROL SO4 0.083% IH SOL 2.5 MG/3 ML VIAL.NEB. NEB PRN (20:06)
[2018-06-10] MEDS ORDERED: METHADONE HCL 10 MG TABLET (FOR DETOX USE ONLY) PO ONE (23:00)
[2018-06-10] MEDS: ASPIRIN 325 MG ENTERIC COATED TABLET (FP) PO SCH (23:08)
[2018-06-10] MEDS: THIAMINE HCL 100 MG TABLET (FP) PO SCH (23:08)
[2018-06-10] MEDS: cloNIDine HCL 0.1 MG TABLET PO PRN (23:09)
[2018-06-11] MEDS: INSULIN SLIDING SCALE (NOVOLOG) 1 VIAL SQ SCH ×2 (07:21→17:33)
[2018-06-11] MEDS: metFORMIN HCL 500 MG TABLET (FP) PO SCH (08:35)
[2018-06-11] MEDS ORDERED: METHADONE HCL 10 MG TABLET (FOR DETOX USE ONLY) PO ONE (10:00)
--- NOTE | 2018-06-11 10:07 | PN ---
BHS COWS - Scale Resting Pulse: 0= [place] 80 or Below Sweatin= Chills/Flushing Restless Observation: 1= Difficult to Sit Still Pupil Size: 0= Normal to Room Light Bone or Joint Aches: 1= Mild Discomfort Runny Nose/ Eye Tearin= Nasal Congestion GI Upset > 30mins: 2= Nausea/Diarrhea Tremor Observation of Outstretched Hands: 2= Slight Tremor Visible Yawning Observation: 0= None Anxiety or Irritability: 2=Irritable/Anxious Goose Flesh Skin: 0=Smooth Skin COWS Score: 10 BHS Progress Note (SOAP) Subjective: Nasal congestion, muscle aches, interrupted sleep Objective: 06/11/18 10:06 Last Vital Signs Temp Pulse Resp BP Pulse Ox 98.1 F 67 18 140/84 06/11/18 09:45 06/11/18 09:45 06/11/18 09:45 06/11/18 09:45 Laboratory Last Values POC Glucometer 147 UNITS (80-120) 06/11/18 06:54 Labs pending No apparent distress or discomfort Assessment: 06/11/18 10:07 Withdrawal sx Plan: Continue detox
[2018-06-11 10:47] LABS: HEMATOCRIT 41.9 % (35.4-49); HEMOGLOBIN 13.6 GM/dL (11.7-16.9); MCH 26.4 pg (25.7-33.7); MCHC 32.6 g/dl (32.0-35.9); MEAN PLT VOLUME 9.5 fl (7.5-11.1); PLATELET COUNT 133 K/MM3 (134-434); RBC 5.17 M/mm3 (4.00-5.60); RDW 15.9 % (11.9-15.9); WHITE BLOOD COUNT 4.1 K/mm3 (4.0-10.0)
[2018-06-11 10:52] LABS: ALBUMIN 3.2 g/dl (3.4-5.0); ALK PHOS 94 U/L (45-117); ANION GAP 6 MMOL/L (8-16); BILIRUBIN,TOTAL 0.8 mg/dL (0.2-1); BLOOD UREA NITROGEN 22 mg/dL (7-18); CALCIUM 8.1 mg/dL (8.5-10.1); CHLORIDE 106 mmol/L (98-107); CO2 29 mmol/L (21-32); CREATININE 1.3 mg/dL (0.55-1.3); GLUCOSE,RANDOM 117 mg/dL (74-106); POTASSIUM 3.5 mmol/L (3.5-5.1); SGOT/AST 16 U/L (15-37); SGPT/ALT 14 U/L (13-61); SODIUM 141 mmol/L (136-145); TOT PROT 6.4 g/dl (6.4-8.2)
[2018-06-11] MEDS: ASPIRIN 325 MG ENTERIC COATED TABLET (FP) PO SCH (11:20)
[2018-06-11] MEDS: LISINOPRIL 20 MG TABLET (FP) PO SCH (11:50)
[2018-06-11] MEDS: amLODIPine BESYLATE 5 MG TABLET (FP) PO SCH (11:50)
[2018-06-11] MEDS: PRENATAL VITAMINS W/ FOLIC ACID TABLET (FP) PO SCH (11:50)
[2018-06-11] MEDS: HYDROCHLOROTHIAZIDE 25 MG TABLET (FP) PO SCH (11:51)
[2018-06-11] MEDS ORDERED: FLU VACCINE QUAD 60 MCG/0.5 ML (MDV 18-19) IM ONE (12:00)
--- NOTE | 2018-06-11 13:09 | EKG ---
Test Reason : Blood Pressure : / mmHG Vent. Rate : 078 BPM Atrial Rate : 078 BPM P-R Int : 214 ms QRS Dur : 092 ms QT Int : 412 ms P-R-T Axes : 031 -05 070 degrees QTc Int : 469 ms SINUS RHYTHM WITH 1ST DEGREE A-V BLOCK RIGHT ATRIAL ENLARGEMENT VOLTAGE CRITERIA FOR LEFT VENTRICULAR HYPERTROPHY INFERIOR INFARCT (CITED ON OR BEFORE 14-AUG-2016) ABNORMAL ECG WHEN COMPARED WITH ECG OF 15-JUL-2017 20:33, [place] INTERVAL HAS INCREASED Confirmed by MD DACIA, AMINA ([id number]) on 06/11/2018 1:09:31 PM Referred By: Confirmed By:AMINA PEDERSON MD
[2018-06-11] MEDS: EMTRICITAB/RILPIVIRI/TENOF ALA (ODEFSEY) TABLET PO SCH (13:29)
[2018-06-11] MEDS: THIAMINE HCL 100 MG TABLET (FP) PO SCH (22:20)
[2018-06-11] MEDS: cloNIDine HCL 0.1 MG TABLET PO PRN (22:20)
[2018-06-11] MEDS: MELATONIN 5 MG TABLETS PO PRN (22:21)
[2018-06-12] MEDS: ALBUTEROL SO4 0.083% IH SOL 2.5 MG/3 ML VIAL.NEB. NEB PRN (04:37)
[2018-06-12] MEDS: metFORMIN HCL 500 MG TABLET (FP) PO SCH (07:20)
[2018-06-12] MEDS: INSULIN SLIDING SCALE (NOVOLOG) 1 VIAL SQ SCH ×2 (07:21→16:44)
[2018-06-12] MEDS ORDERED: METHADONE HCL 10 MG TABLET (FOR DETOX USE ONLY) PO ONE (10:00)
[2018-06-12] MEDS: HYDROCHLOROTHIAZIDE 25 MG TABLET (FP) PO SCH (10:15)
[2018-06-12] MEDS: amLODIPine BESYLATE 5 MG TABLET (FP) PO SCH (10:15)
[2018-06-12] MEDS: LISINOPRIL 20 MG TABLET (FP) PO SCH (10:15)
[2018-06-12] MEDS: PRENATAL VITAMINS W/ FOLIC ACID TABLET (FP) PO SCH (10:15)
[2018-06-12] MEDS: EMTRICITAB/RILPIVIRI/TENOF ALA (ODEFSEY) TABLET PO SCH (10:16)
[2018-06-12] MEDS ORDERED: ALBUTEROL SO4 8 GM HFA INHALER IH PRN (10:24)
--- NOTE | 2018-06-12 10:25 | PN ---
S COWS - Scale Resting Pulse: 0= [place] 80 or Below Sweatin= Chills/Flushing Restless Observation: 1= Difficult to Sit Still Pupil Size: 1= Pupils >than Normal Bone or Joint Aches: 1= Mild Discomfort Runny Nose/ Eye Tearin= Runny Nose/Eyes GI Upset > 30mins: 0= None Tremor Observation of Outstretched Hands: 1= Tremor [place], Not Seen Yawning Observation: 2= >3x During Session Anxiety or Irritability: 2=Irritable/Anxious Goose Flesh Skin: 0=Smooth Skin COWS Score: 11 S Progress Note (SOAP) Subjective: c/o of interrupted sleep, sob d/t asthma relieved with neb tx, body aches Objective: 06/12/18 10:24 Vital Signs Temperature 98.4 F 06/12/18 09:28 Pulse Rate 70 06/12/18 09:28 Respiratory Rate 16 06/12/18 09:28 Blood Pressure 144/91 06/12/18 09:28 O2 Sat by Pulse Oximetry (%) Laboratory Last Values WBC 4.1 K/mm3 (4.0-10.0) 06/11/18 07:50 RBC 5.17 M/mm3 (4.00-5.60) 06/11/18 07:50 Hgb 13.6 GM/dL (11.7-16.9) 06/11/18 07:50 Hct 41.9 % (35.4-49) 06/11/18 07:50 MCV 81.0 fl (80-96) 06/11/18 07:50 MCH 26.4 pg (25.7-33.7) 06/11/18 07:50 MCHC 32.6 g/dl (32.0-35.9) 06/11/18 07:50 RDW 15.9 % (11.9-15.9) D 06/11/18 07:50 Plt Count 133 K/MM3 (134-434) L 06/11/18 07:50 MPV 9.5 fl (7.5-11.1) 06/11/18 07:50 Sodium 141 mmol/L (136-145) 06/11/18 07:50 Potassium 3.5 mmol/L (3.5-5.1) 06/11/18 07:50 Chloride 106 mmol/L (98-107) 06/11/18 07:50 Carbon Dioxide 29 mmol/L (21-32) 06/11/18 07:50 Anion Gap 6 MMOL/L (8-16) L 06/11/18 07:50 BUN 22 mg/dL (7-18) H 06/11/18 07:50 Creatinine 1.3 mg/dL (0.55-1.3) 06/11/18 07:50 Creat Clearance w eGFR 58.67 (>60) 06/11/18 07:50 POC Glucometer 153 UNITS (80-120) 06/12/18 04:52 Random Glucose 117 mg/dL (74-106) H 06/11/18 07:50 Calcium 8.1 mg/dL (8.5-10.1) L 06/11/18 07:50 Total Bilirubin 0.8 mg/dL (0.2-1) 06/11/18 07:50 AST 16 U/L (15-37) 06/11/18 07:50 ALT 14 U/L (13-61) 06/11/18 07:50 Alkaline Phosphatase 94 U/L (45-117) 06/11/18 07:50 Total Protein 6.4 g/dl (6.4-8.2) 06/11/18 07:50 Albumin 3.2 g/dl (3.4-5.0) L 06/11/18 07:50 RPR Titer Nonreactive (NONREACTIVE) 06/11/18 07:50 Assessment: Aox3 no acute distress, no adventitious breath sounds, full ROM ambulating in the unit withdrawal sx asthma 06/12/18 11:31 Plan: albuterol inhaler ordered neb tx prn continue detox increase po fluids continue to monitor
[2018-06-12] MEDS: ASPIRIN 325 MG ENTERIC COATED TABLET (FP) PO SCH (12:47)
[2018-06-12] MEDS: THIAMINE HCL 100 MG TABLET (FP) PO SCH (22:26)
[2018-06-12] MEDS: cloNIDine HCL 0.1 MG TABLET PO PRN (22:26)
[2018-06-12] MEDS: MELATONIN 5 MG TABLETS PO PRN (22:27)
[2018-06-13] MEDS: INSULIN SLIDING SCALE (NOVOLOG) 1 VIAL SQ SCH (07:33)
[2018-06-13] MEDS: metFORMIN HCL 500 MG TABLET (FP) PO SCH (08:30)
[2018-06-13 09:12] VITALS: BP 147/97; PULSE 61; TEMP 98.9
[2018-06-13] MEDS ORDERED: ASPIRIN COATED 81 MG TABLET.EC ONE (09:21)
[2018-06-13] MEDS ORDERED: BACITRACIN 0.9 GM PACKET TP ONE (09:49)
[2018-06-13] MEDS ORDERED: METHADONE HCL 10 MG TABLET (FOR DETOX USE ONLY) PO ONE (10:00)
--- NOTE | 2018-06-13 10:03 | PN ---
BHS Progress Note (SOAP) Subjective: Patient denies current Withdrawal / Detox symptoms and reports that he feels well overall. Objective: PATIENT A & O X 3, OBSERVED AMBULATING ON UNIT. IN NO ACUTE DISTRESS. 06/13/18 10:01 Vital Signs Temperature 98.9 F 06/13/18 09:11 Pulse Rate 61 06/13/18 09:11 Respiratory Rate 18 06/13/18 09:11 Blood Pressure 147/97 06/13/18 09:11 O2 Sat by Pulse Oximetry (%) Laboratory Tests 06/10/18 06/11/18 06/11/18 16:56 06:54 07:50 WBC 4.1 RBC 5.17 Hgb 13.6 Hct 41.9 MCV 81.0 MCH 26.4 MCHC 32.6 RDW 15.9 D Plt Count 133 L MPV 9.5 Sodium Potassium Chloride Carbon Dioxide Anion Gap BUN Creatinine Creat Clearance w eGFR POC Glucometer 154 147 Random Glucose Calcium Total Bilirubin AST ALT Alkaline Phosphatase Total Protein Albumin RPR Titer 06/11/18 06/11/18 06/11/18 07:50 07:50 16:54 WBC RBC Hgb Hct MCV MCH MCHC RDW Plt Count MPV Sodium 141 Potassium 3.5 Chloride 106 Carbon Dioxide 29 Anion Gap 6 L BUN 22 H Creatinine 1.3 Creat Clearance w eGFR 58.67 POC Glucometer 144 Random Glucose 117 H Calcium 8.1 L Total Bilirubin 0.8 AST 16 ALT 14 Alkaline Phosphatase 94 Total Protein 6.4 Albumin 3.2 L RPR Titer Nonreactive 06/12/18 06/12/18 06/13/18 04:52 16:39 05:31 WBC RBC Hgb Hct MCV MCH MCHC RDW Plt Count MPV Sodium Potassium Chloride Carbon Dioxide Anion Gap BUN Creatinine Creat Clearance w eGFR POC Glucometer 153 122 160 Random Glucose Calcium Total Bilirubin AST ALT Alkaline Phosphatase Total Protein Albumin RPR Titer LABS NOTED. Assessment: 06/13/18 10:01 COMPLETION OF DETOX REGIMEN. Plan: SINCE PATIENT DENIES CURRENT WITHDRAWAL / DETOX SYMPTOMS AND REPORTS THAT HE FEELS WELL OVERALL, AT PATIENT'S REQUEST, HE WAS GRANTED AN EARLY DISCHARGE FROM DETOX UNIT.
--- NOTE | 2018-06-13 10:10 | PN ---
[facility] Progress Note Note: PRIOR TO DISCHARGE FROM DETOX UNIT, WHILE PATIENT WAS TAKING A SHOWER, HE ACCIDENTALLY HIT HIS LEFT ELBOW ON BORDER EDGE OF TILE IN THE SHOWER. SMALL ( APPROX. 1/4 INCH) ABRASION NOTED ON TIP OF LEFT ELBOW, NEAR TIP OF OLECRANON. NO BLEEDING NOTED AT SITE. NO SWELLING OR ERYTHEMA NOTED IN TISSUES SURROUNDING AFFECTED SITE. PATIENT DENIES PAIN AT AFFECTED SITE. PATIENT ABLE TO FULLY FLEX AND EXTEND LEFT ARM WITHOUT DIFFICULTY OR DISCOMFORT. Brando DEE NP
[2018-06-13] MEDS: LISINOPRIL 20 MG TABLET (FP) PO SCH (10:22)
[2018-06-13] MEDS: ASPIRIN 325 MG ENTERIC COATED TABLET (FP) PO SCH (10:22)
[2018-06-13] MEDS: amLODIPine BESYLATE 5 MG TABLET (FP) PO SCH (10:22)
[2018-06-13] MEDS: PRENATAL VITAMINS W/ FOLIC ACID TABLET (FP) PO SCH (10:22)
[2018-06-13] MEDS: HYDROCHLOROTHIAZIDE 25 MG TABLET (FP) PO SCH (10:24)
[2018-06-13] MEDS: EMTRICITAB/RILPIVIRI/TENOF ALA (ODEFSEY) TABLET PO SCH (10:40)
--- NOTE | 2018-06-13 15:16 | DS ---
[facility] Detox Discharge Summary Admission Date: 06/10/18 Discharge Date: 06/13/18 - History Present History: Cocaine Dependence, Opioid Dependence Additional Comments: PATIENT DENIES CURRENT WITHDRAWAL / DETOX SYMPTOMS AND REPORTS THAT HE FEELS WELL OVERALL AT TIME OF DISCHARGE FROM DETOX UNIT. PATIENT GOING HOME TO ATTEND TO PERSONAL AFFAIRS FOR THE NEXT FEW DAYS, THEN WILL APPLY FOR [facility] ([place], [place]). PATIENT ADVISED TO FOLLOW-UP WITH [facility] FOR GENERAL MEDICAL ASSESSMENT WHEN POSSIBLE. PATIENT DECLINED OFFER OF MEDICATION PRESCRIPTION FOR HOME MEDICATION AT TIME OF DISCHARGE FROM DETOX, NOTING THAT HE CURRENTLY HAS ADEQUATE SUPPLIES OF ALL PRESCRIBED HOME MEDICATIONS AT HOME. PRESCRIPTION FOR TOPICAL BACITRACIN SENT TO PATIENT'S PHARMAC[facility] [place] FOR FOLLOW-UP CARE OF MINOR WOUND INCURRED ON LEFT ELBOW PRIOR TO DISCHARGE FROM DETOX. PATIENT ADVISED TO CONTINUE TO APPLY TOPICAL BACITRACIN TO WOUND BID ( PREVIOUSLY DIRECTED) FOR NEXT FEW DAYS. PATIENT VERBALIZED UNDERSTANDING OF ALL RECOMMENDATIONS. PATIENT WAS DISCHARGED FROM DETOX UNIT IN STABLE MEDICAL CONDITION. Pertinent Past History: Nicotine Dependence, H.I.V., Asthma, HTN, CAD, Type II DM. - Physical Exam Results Vital Signs: Vital Signs Temperature 98.9 F 06/13/18 09:11 Pulse Rate 61 06/13/18 09:11 Respiratory Rate 18 06/13/18 09:11 Blood Pressure 147/97 06/13/18 09:11 O2 Sat by Pulse Oximetry (%) Pertinent Admission Physical Exam Findings: WITHDRAWAL SYMPTOMS. Laboratory Tests 06/10/18 06/11/18 06/11/18 16:56 06:54 07:50 WBC 4.1 RBC 5.17 Hgb 13.6 Hct 41.9 MCV 81.0 MCH 26.4 MCHC 32.6 RDW 15.9 D Plt Count 133 L MPV 9.5 Sodium Potassium Chloride Carbon Dioxide Anion Gap BUN Creatinine Creat Clearance w eGFR POC Glucometer 154 147 Random Glucose Calcium Total Bilirubin AST ALT Alkaline Phosphatase Total Protein Albumin RPR Titer 06/11/18 06/11/18 06/11/18 07:50 07:50 16:54 WBC RBC Hgb Hct MCV MCH MCHC RDW Plt Count MPV Sodium 141 Potassium 3.5 Chloride 106 Carbon Dioxide 29 Anion Gap 6 L BUN 22 H Creatinine 1.3 Creat Clearance w eGFR 58.67 POC Glucometer 144 Random Glucose 117 H Calcium 8.1 L Total Bilirubin 0.8 AST 16 ALT 14 Alkaline Phosphatase 94 Total Protein 6.4 Albumin 3.2 L RPR Titer Nonreactive 06/12/18 06/12/18 06/13/18 04:52 16:39 05:31 WBC RBC Hgb Hct MCV MCH MCHC RDW Plt Count MPV Sodium Potassium Chloride Carbon Dioxide Anion Gap BUN Creatinine Creat Clearance w eGFR POC Glucometer 153 122 160 Random Glucose Calcium Total Bilirubin AST ALT Alkaline Phosphatase Total Protein Albumin RPR Titer LABS NOTED. - Treatment Hospital Course: Detox Protocol Followed, Detoxed Safely, Responded well, Discharged Condition Good, Rehab Referral Accepted Patient has Accepted a Rehab Referral to: [facility] ([place], [place]). - Medication Discharge Medications: Ambulatory Orders Aspirin [Aspirin EC] 325 mg PO DAILY 08/14/16 Emtricitab/Rilpiviri/Tenof Ala [Odefsey Tablet] 1 each PO DAILY 08/14/16 Albuterol Sulfate Inhaler - [Ventolin HFA Inhaler -] 2 inh PO Q4H PRN #1 inhaler 07/18/17 Amlodipine Besylate 5 mg PO DAILY #30 tablet 07/18/17 metFORMIN HCL [Glucophage -] 500 mg PO DAILY #30 tablet 07/18/17 Hydrochlorothiazide [Hctz -] 25 mg PO DAILY #30 tablet 07/19/17 Lisinopril [Prinivil] 20 mg PO DAILY #30 tablet 07/19/17 Metoprolol Succinate [Toprol XL -] 50 mg PO DAILY #30 tab.sr.24h 07/19/17 Bacitracin - [Bacitracin Topical Ointment -] 1 applic TP BID #1 tube 06/13/18 - Diagnosis (1) Opioid dependence with withdrawal Status: Acute (2) Cocaine dependence Status: Chronic Qualifiers: Substance use status: uncomplicated Qualified Code(s): F14.20 - Cocaine dependence, uncomplicated (3) Nicotine dependence Status: Chronic Qualifiers: Nicotine product type: cigarettes Substance use status: in withdrawal Qualified Code(s): F17.213 - Nicotine dependence, cigarettes, with withdrawal - AMA Did Patient Leave Against Medical Advice: No
[2018-06-14] MEDS ORDERED: METHADONE HCL 5 MG TABLET (FOR DETOX USE ONLY) PO ONE (06:00)
== END 2018-06-13 10:40 | disposition home or self-care (01) | DRG 773 ==
LOC: YASAS 14:12 → Y6N 18:36
PROVIDERS: ADMIT Surgery; ATTEND Surgery
PROC: HZ2ZZZZ Detoxification Services for Substance Abuse Treatment (ICD-10-PCS; principal; 2018-06-10)
DX: F11.23 Opioid dependence with withdrawal (principal); F14.20 Cocaine dependence, uncomplicated; F17.210 Nicotine dependence, cigarettes, uncomplicated; Z21 Asymptomatic human immunodeficiency virus [HIV] infection status; E11.9 Type 2 diabetes mellitus without complications; Z79.84 Long term (current) use of oral hypoglycemic drugs; I25.10 Atherosclerotic heart disease of native coronary artery without angina pectoris; I10 Essential (primary) hypertension; J45.909 Unspecified asthma, uncomplicated; S50.312A Abrasion of left elbow, initial encounter; W22.8XXA Striking against or struck by other objects, initial encounter; Y93.E1 Activity, personal bathing and showering; Y92.231 Patient bathroom in hospital as the place of occurrence of the external cause; Y99.8 Other external cause status; E66.9 Obesity, unspecified; Z68.36 Body mass index [BMI] 36.0-36.9, adult; Z95.828 Presence of other vascular implants and grafts; Z86.19 Personal history of other infectious and parasitic diseases
CPT/HCPCS: 36415; 80053; 82962; 85027; 86593; 93005; 93010; 94640; J0735

== ENCOUNTER 2018-10-23 12:38 | Inpatient (IN) | payer OTHER ==
[2018-10-23 14:59] VITALS: BMI 31.6
--- NOTE | 2018-10-23 16:24 | HP ---
"COWS - Scale Resting Pulse: 0= [place] 80 or Below Sweatin= Chills/Flushing Restless Observation: 1= Difficult to Sit Still Pupil Size: 0= Normal to Room Light Bone or Joint Aches: 1= Mild Discomfort Runny Nose/ Eye Tearin= None GI Upset > 30mins: 2= Nausea/Diarrhea Tremor Observation: 0= None Yawning Observation: 0= None Anxiety or Irritability: 2=Irritable/Anxious Goose Flesh Skin: 0=Smooth Skin COWS Score: 7 CIWA Score - Admission Criteria OASAS Guidelines: Admission for Medically Managed Detox: Requires at least one of the followin. CIWA greater than 12 2. Seizures within the past 24 hours 3. Delirium tremens within the past 24 hours 4. Hallucinations within the past 24 hours 5. Acute intervention needed for co occurring medical disorder 6. Acute intervention needed for co occurring psychiatric disorder 7. Severe withdrawal that cannot be handled at a lower level of care (continued vomiting, continued diarrhea, abnormal vital signs) requiring intravenous medication and/or fluids 8. Admission ROS [facility] Allergies/Adverse Reactions: Allergies Allergy/AdvReac Type Severity Reaction Status Date / Time enoxaparin sodium Allergy Severe Rash Verified 10/23/18 14:42 [From Lovenox] History of Present Illness: patient here requesting detox from opiate use , reports 1 bundle/day via inhalation, relapsed after leaving facility in May , hospitalized July 2018 @ [facility] for CHF / CVA , trach since then , has appt w/ ENT on 10/28 for removal of trach . Was in [place] until 3 weeks ago [facility]. heroin : first age of use 28 , latest use this morning , current symptoms as above , most recent detox at this facility , denies OD , longest sobriety 4 years w/ meetings. cocaine : 1 bag/day stopped using when he had CVA event tobacco : 2 cigs/day PMHX : DM II , htn , HIV + 2009 ( RF= IVDU ) on Odefsey from [facility] latest rx , asthma , DVT , hep C s/p tx 2018 , old [place] , toxic shock syndrome 1998 2/ 2 heroin use , in medically induced coma x 2 weeks , PSHx : IVC filter 3 years ago @ [facility] psych : denies , denies current SI / [place] Shx : lives in private home, alone , stopped working 2018 . search Terms: sarah moralez, 1970 Search Date: 10/23/2018 04:43:05 PM This report was requested by: Gena Cardenas | Reference #: [id number] There are no results for the search terms that you entered. Exam Limitations: No Limitations - Ebola screening Have you traveled outside of the country in the last 21 days: No (N) Have you had contact with anyone from an Ebola affected area: No Do you have a fever: No - Review of Systems Constitutional: Loss of Appetite EENT: reports: See HPI, Other (trach) Respiratory: reports: See HPI, Other (trach) Cardiac: reports: No Symptoms Reported GI: reports: Poor Appetite : reports: No Symptoms Reported Musculoskeletal: reports: Muscle Weakness (reports weakness w/ walking) Patient History - Patient Medical History Hx Anemia: No Hx Asthma: Yes (Pt is on MDI) Hx Chronic Obstructive Pulmonary Disease (COPD): No Hx Cancer: No Hx Cardiac Disorders: Yes (cad) Hx Congestive Heart Failure: No Hx Hypertension: Yes (on meds) Hx Hypercholesterolemia: No Hx Pacemaker: No HX Cerebrovascular Accident: No Hx Seizures: No Hx Dementia: No Hx Diabetes: Yes Hx Gastrointestinal Disorders: No Hx Liver Disease: No Hx Genitourinary Disorders: No Hx Sexually Transmitted Disorders: No Hx Renal Disease (ESRD): No Hx Thyroid Disease: No Hx Human Immunodeficiency Virus (HIV): Yes (SINCE 2010, Ovdes ) Hx Hepatitis C: No Hx Depression: No Hx Suicide Attempt: No Hx Bipolar Disorder: No Hx Schizophrenia: No - Patient Surgical History Past Surgical History: Yes Hx Neurologic Surgery: No Hx Cataract Extraction: No Hx Cardiac Surgery: Yes (Cardiac cath stent in 2009) Hx Lung Surgery: No Hx Breast Surgery: No Hx Breast Biopsy: No Hx Abdominal Surgery: No Hx Appendectomy: No Hx Cholecystectomy: No Hx Genitourinary Surgery: No Hx Section: No Hx Orthopedic Surgery: No Other Surgical History: IVC FILTER IN 2009 Anesthesia Reaction: No - PPD History Date: 08/16/16 - Smoking Cessation Smoking history: Current every day smoker Have you smoked in the past 12 months: Yes Aproximately how many cigarettes per day: 6 Hx Chewing Tobacco Use: No Initiated information on smoking cessation: No - Substances abused Heroin Substance route: Inhalation Frequency: Daily Amount used: 1 bundle daily Age of first use: 28 Date of last use: 10/23/18 Family Disease History - Family Disease History Family Disease History: Other: Father (ALCOHOL,) Admission Physical Exam BHS - Vital Signs Vital Signs: Vital Signs - 24 hr 10/23/18 14:26 Temperature 98.4 F Pulse Rate 66 Respiratory 20 Rate Blood Pressure 178/101 H - Physical General Appearance: Yes: Mild Distress HEENTM: Yes: EOMI, Hearing grossly Normal, Normocephalic, Muffled/Hoarse Voice, Other (trach in place) Respiratory: Yes: Lungs Clear, Normal Breath Sounds, No Respiratory Distress, No Accessory Muscle Use, Other (trach) Neck: Yes: No masses,lesions,Nodules, Trachea in good position, Other (trach in place) Cardiology: Yes: Regular Rhythm, Regular Rate, S1, S2, Edema (scout LE), Murmur, Diastolic Murmur Abdominal: Yes: Non Tender, Soft, Protuberent Musculoskeletal: Yes: full range of Motion Extremities: Yes: Normal Range of Motion, Pedal Edema (scout LE) Neurological: Yes: Fully Oriented, Alert, Motor Strength 5/5, Normal Mood/Affect Integumentary: Yes: Warm, Other (non- pititng edema scout LE .) - Addiitonal Findings: QTc 469ms 05/2018 abnormal EKG 1st degree av block , right atrial enlargement, LVH - Diagnostic (1) Opioid dependence with withdrawal Current Visit: Yes Status: Acute Breathalyzer - Breathalyzer Breathalyzer: 0 Urine Drug Screen - Test Device Lot number: [id number] Expiration date: 07/26/20 - Control Is test valid?: Yes - Results Drug screen NEGATIVE: No Urine drug screen results: FEN-Fentanyl, MOP-Opiates Inpatient Rehab Admission - Rehab Decision to Admit Inpatient rehab admission?: No"
[2018-10-23] MEDS ORDERED: PATIENT'S OWN MEDICATION (NON-FORMULARY) (Hydralazine Hcl [Hydralazine Hcl] 100 MG) PO SCH (16:30)
[2018-10-23] MEDS ORDERED: MELATONIN 5 MG TABLETS PO PRN (16:36)
[2018-10-23] MEDS ORDERED: ACETAMINOPHEN 325 MG TABLET (FP) PO PRN ×2 (16:36)
[2018-10-23] MEDS ORDERED: MENTHOL/PHENOL 1 EACH UD MM PRN (16:36)
[2018-10-23] MEDS ORDERED: MAGNESIUM HYDROX 2400MG/30ML ORAL SUSPENSION 30 ML CUP PO PRN (16:36)
[2018-10-23] MEDS ORDERED: MAG HYDROX/AL HYDROX/SIMETH 30 ML UNIT-DOSE CUP PO PRN (16:36)
[2018-10-23] MEDS ORDERED: MAGNESIUM CITRATE 300 ML BOTTLE PO PRN (16:36)
[2018-10-23] MEDS ORDERED: BISMUTH SUBSALICYLATE 524 MG/30 ML UD PO PRN (16:36)
[2018-10-23] MEDS ORDERED: IBUPROFEN 400 MG TABLET (FP) PO PRN (16:36)
[2018-10-23] MEDS: LISINOPRIL 20 MG TABLET (FP) PO SCH (18:29)
[2018-10-23] MEDS: ASPIRIN 81 MG CHEWABLE TABLETS PO SCH (18:29)
[2018-10-23] MEDS: amLODIPine BESYLATE 10 MG TABLET (FP) PO SCH (18:29)
[2018-10-23] MEDS: ATORVASTATIN CA 20 MG TABLET (FP) PO SCH (23:00)
[2018-10-23] MEDS ORDERED: METHADONE HCL 10 MG TABLET (FOR DETOX USE ONLY) PO ONE (23:00)
[2018-10-23] MEDS: THIAMINE HCL 100 MG TABLET (FP) PO SCH (23:00)
[2018-10-23] MEDS: levETIRAcetam 500 MG TABLET (FP) PO SCH (23:00)
[2018-10-23] MEDS: hydrALAZINE HCL 50 MG TABLET (FP) PO SCH (23:01)
[2018-10-24] MEDS: metFORMIN HCL 500 MG TABLET (FP) PO SCH (06:31)
[2018-10-24] MEDS: hydrALAZINE HCL 50 MG TABLET (FP) PO SCH ×3 (07:39→22:24)
[2018-10-24] MEDS ORDERED: ALBUTEROL SO4 0.083% IH SOL 2.5 MG/3 ML VIAL.NEB. NEB ONE ×2 (09:27→23:05)
[2018-10-24] MEDS ORDERED: ALBUTEROL SO4 2.5/IPRATROPIUM 0.5 INH SOL 3 ML VIAL.NEB. NEB ONE (09:28)
[2018-10-24] MEDS ORDERED: METHADONE HCL 5 MG TABLET (FOR DETOX USE ONLY) PO ONE (10:00)
[2018-10-24] MEDS: levETIRAcetam 500 MG TABLET (FP) PO SCH ×2 (10:35→22:24)
[2018-10-24] MEDS: ASPIRIN 81 MG CHEWABLE TABLETS PO SCH (10:35)
[2018-10-24] MEDS: LISINOPRIL 20 MG TABLET (FP) PO SCH (10:36)
[2018-10-24] MEDS: HYDROCHLOROTHIAZIDE 25 MG TABLET (FP) PO SCH (10:36)
[2018-10-24] MEDS: amLODIPine BESYLATE 10 MG TABLET (FP) PO SCH (10:36)
[2018-10-24] MEDS: PRENATAL VITAMINS W/ FOLIC ACID TABLET (FP) PO SCH (10:38)
[2018-10-24 12:23] LABS: HEMATOCRIT 27.4 % (35.4-49); HEMOGLOBIN 8.8 GM/dL (11.7-16.9); MCH 24.7 pg (25.7-33.7); MCHC 32.3 g/dl (32.0-35.9); MEAN CELL VOLUME 76.5 fl (80-96); MEAN PLT VOLUME 8.6 fl (7.5-11.1); PLATELET COUNT 232 K/MM3 (134-434); RBC 3.58 M/mm3 (4.00-5.60); WHITE BLOOD COUNT 3.3 K/mm3 (4.0-10.0)
[2018-10-24 13:03] LABS: ALBUMIN 3.2 g/dl (3.4-5.0); BILIRUBIN,TOTAL 0.6 mg/dL (0.2-1); BLOOD UREA NITROGEN 9.7 mg/dL (7-18); CALCIUM 8.9 mg/dL (8.5-10.1); POTASSIUM 3.2 mmol/L (3.5-5.1); TOT PROT 6.6 g/dl (6.4-8.2)
[2018-10-24] MEDS: EMTRICITAB/RILPIVIRI/TENOF ALA (ODEFSEY) TABLET PO SCH (14:34)
--- NOTE | 2018-10-24 16:00 | PN ---
BHS COWS - Scale Resting Pulse: 0= [place] 80 or Below Sweatin= Chills/Flushing Restless Observation: 1= Difficult to Sit Still Pupil Size: 0= Normal to Room Light Bone or Joint Aches: 0= None Runny Nose/ Eye Tearin= None GI Upset > 30mins: 1= Stomach Cramp Tremor Observation of Outstretched Hands: 0= None Yawning Observation: 1= 1-2x During Session Anxiety or Irritability: 2=Irritable/Anxious Goose Flesh Skin: 3=Piloerection COWS Score: 9 BHS Progress Note (SOAP) Subjective: Sweating, Anxious, Chills, Stomach Cramping. Objective: PATIENT A & O X 2 (UNCERTAIN ABOUT CURRENT DAY / DATE). PATIENT OBSERVED AMBULATING ON UNIT UNASSISTED. IN NO ACUTE DISTRESS. 10/24/18 16:02 Vital Signs Temperature 97.2 F L 10/24/18 13:26 Pulse Rate 66 10/24/18 13:26 Respiratory Rate 20 10/24/18 13:26 Blood Pressure 147/78 10/24/18 13:26 O2 Sat by Pulse Oximetry (%) Laboratory Tests 10/24/18 10/24/18 10/24/18 05:39 07:00 07:00 WBC 3.3 L RBC 3.58 L Hgb 8.8 L Hct 27.4 L D MCV 76.5 L MCH 24.7 L MCHC 32.3 RDW 18.0 H Plt Count 232 D MPV 8.6 Sodium 141 Potassium 3.2 L Chloride 104 Carbon Dioxide 32 Anion Gap 5 L BUN 9.7 Creatinine 1.0 Est GFR (CKD-EPI)AfAm 101.98 Est GFR (CKD-EPI)NonAf 87.99 POC Glucometer 109 Random Glucose 107 H Calcium 8.9 Total Bilirubin 0.6 AST 7 L ALT 9 L Alkaline Phosphatase 55 Total Protein 6.6 Albumin 3.2 L RPR Titer 10/24/18 07:00 WBC RBC Hgb Hct MCV MCH MCHC RDW Plt Count MPV Sodium Potassium Chloride Carbon Dioxide Anion Gap BUN Creatinine Est GFR (CKD-EPI)AfAm Est GFR (CKD-EPI)NonAf POC Glucometer Random Glucose Calcium Total Bilirubin AST ALT Alkaline Phosphatase Total Protein Albumin RPR Titer Nonreactive LABS NOTED. PATIENT HAS HAD LOW WBC LEVELS ON PREVIOUS ADMISSIONS. 10/24/18 16:08 Assessment: 10/24/18 16:08 WITHDRAWAL SYMPTOMS. LEUKOPENIA. ANEMIA. HYPOKALEMIA. HYPERTENSION. Plan: PATIENT CONTINUE DETOX. INCREASE DAILY PO WATER INTAKE. K-DUR, 40 MEQ PO (LIQUID) X 1 DOSE NOW, THEN 40 MEQ PO (LIQUID) X 1 DOSE TONIGHT. RE-CHECK K LEVEL TOMORROW AM. FEOSOOL, 325 MG PO TIDCM. RE-CHECK CBC TOMORROW AM TO SEE IF ANY CHANGE IN ANEMIA NOTED ON DETOX ADMISSION. PATIENT IS CURRENTLY RECEIVING DAILY MVI CONTAINING B VITAMINS AND IRON WHILE ADMITTED FOR DETOX. CONTINUE TO MONITOR BLOOD PRESSURE. CONTINUE CARE, SUCTION, AND CLEANING OF TRACHESTOMY AND RELATED PARTS DIRECTED CLEANING AND SUCTION DONE EARLIER TODAY).
[2018-10-24] MEDS ORDERED: POTASSIUM CHLORIDE ORAL LIQUID 20 MEQ/15 ML PO ONE ×2 (16:03→22:00)
[2018-10-24] MEDS: FERROUS SO4 325 MG TABLET (FP) PO SCH (17:28)
[2018-10-24] MEDS: ATORVASTATIN CA 20 MG TABLET (FP) PO SCH (22:24)
[2018-10-24] MEDS: THIAMINE HCL 100 MG TABLET (FP) PO SCH (22:24)
[2018-10-25] MEDS: hydrALAZINE HCL 50 MG TABLET (FP) PO SCH ×3 (05:48→22:21)
[2018-10-25] MEDS: metFORMIN HCL 500 MG TABLET (FP) PO SCH (08:00)
[2018-10-25] MEDS: FERROUS SO4 325 MG TABLET (FP) PO SCH ×3 (08:26→17:19)
[2018-10-25] MEDS ORDERED: POTASSIUM CHLORIDE ORAL LIQUID 20 MEQ/15 ML PO SCH (10:00)
[2018-10-25] MEDS ORDERED: METHADONE HCL 10 MG TABLET (FOR DETOX USE ONLY) PO ONE (10:00)
[2018-10-25] MEDS: amLODIPine BESYLATE 10 MG TABLET (FP) PO SCH (10:15)
[2018-10-25] MEDS: HYDROCHLOROTHIAZIDE 25 MG TABLET (FP) PO SCH (10:15)
[2018-10-25] MEDS: levETIRAcetam 500 MG TABLET (FP) PO SCH ×2 (10:15→22:21)
[2018-10-25] MEDS: ASPIRIN 81 MG CHEWABLE TABLETS PO SCH (10:15)
[2018-10-25] MEDS: LISINOPRIL 20 MG TABLET (FP) PO SCH (10:15)
[2018-10-25] MEDS: EMTRICITAB/RILPIVIRI/TENOF ALA (ODEFSEY) TABLET PO SCH (10:16)
[2018-10-25] MEDS: PRENATAL VITAMINS W/ FOLIC ACID TABLET (FP) PO SCH (10:16)
[2018-10-25 11:11] LABS: BASO % 0.3 % (0-2.0); EOS % 3.5 % (0-4.5); HEMATOCRIT 29.1 % (35.4-49); HEMOGLOBIN 9.2 GM/dL (11.7-16.9); LYMPH % 21.5 % (8-40); MCH 24.1 pg (25.7-33.7); MCHC 31.7 g/dl (32.0-35.9); MEAN CELL VOLUME 76.1 fl (80-96); MEAN PLT VOLUME 8.3 fl (7.5-11.1); MONO % 14.2 % (3.8-10.2); NEUT % 60.5 % (42.8-82.8); PLATELET COUNT 260 K/MM3 (134-434); RBC 3.83 M/mm3 (4.00-5.60); RDW 17.9 % (11.9-15.9); WHITE BLOOD COUNT 3.4 K/mm3 (4.0-10.0)
--- NOTE | 2018-10-25 11:36 | PN ---
BHS COWS - Scale Resting Pulse: 0= [place] 80 or Below Sweatin= Chills/Flushing Restless Observation: 1= Difficult to Sit Still Pupil Size: 1= Pupils >than Normal Bone or Joint Aches: 1= Mild Discomfort Runny Nose/ Eye Tearin= Nasal Congestion GI Upset > 30mins: 1= Stomach Cramp Tremor Observation of Outstretched Hands: 1= Tremor [place], Not Seen Yawning Observation: 1= 1-2x During Session Anxiety or Irritability: 1=Feels Anxious/Irritable Goose Flesh Skin: 0=Smooth Skin COWS Score: 9 BHS Progress Note (SOAP) Subjective: alert,irritable,anxious,interrupted sleep,pain in the body Objective: 10/25/18 11:34 Vital Signs Temperature 97.9 F 10/25/18 09:16 Pulse Rate 61 10/25/18 09:16 Respiratory Rate 18 10/25/18 09:16 Blood Pressure 129/72 10/25/18 09:16 O2 Sat by Pulse Oximetry (%) Assessment: 10/25/18 11:34 withdrawal symptom 10/25/18 11:35 k 3.3 labs pending Plan: continue detox methadone regimen,cont k replacement,discharge in am
[2018-10-25] MEDS: POTASSIUM CHLORIDE TABS 20 MEQ TABLET.ER (FP) PO SCH (13:59)
[2018-10-25] MEDS: THIAMINE HCL 100 MG TABLET (FP) PO SCH (22:21)
[2018-10-25] MEDS: ATORVASTATIN CA 20 MG TABLET (FP) PO SCH (22:21)
[2018-10-25] MEDS ORDERED: ALBUTEROL SO4 0.083% IH SOL 2.5 MG/3 ML VIAL.NEB. NEB PRN (23:08)
[2018-10-26] MEDS ORDERED: METHADONE HCL 5 MG TABLET (FOR DETOX USE ONLY) PO ONE (06:00)
[2018-10-26] MEDS: hydrALAZINE HCL 50 MG TABLET (FP) PO SCH (06:02)
[2018-10-26 07:53] VITALS: BP 135/67; PULSE 54; TEMP 97.7
[2018-10-26] MEDS: FERROUS SO4 325 MG TABLET (FP) PO SCH (07:53)
[2018-10-26] MEDS: metFORMIN HCL 500 MG TABLET (FP) PO SCH (07:53)
--- NOTE | 2018-10-26 08:58 | DS ---
[facility] Detox Discharge Summary Admission Date: 10/23/18 Discharge Date: 10/26/18 - History Present History: Alcohol Dependence, Cocaine Dependence, Opioid Dependence Pertinent Past History: pt has a trache with a inner cannula and pt states has an appt to have it removed. - Physical Exam Results Vital Signs: Vital Signs Temperature 97.7 F 10/26/18 07:53 Pulse Rate 54 L 10/26/18 07:53 Respiratory Rate 18 10/26/18 07:53 Blood Pressure 135/67 10/26/18 07:53 O2 Sat by Pulse Oximetry (%) Laboratory Tests 10/24/18 10/24/18 10/24/18 05:39 07:00 07:00 WBC 3.3 L RBC 3.58 L Hgb 8.8 L Hct 27.4 L D MCV 76.5 L MCH 24.7 L MCHC 32.3 RDW 18.0 H Plt Count 232 D MPV 8.6 Absolute Neuts (auto) Neutrophils % Lymphocytes % Monocytes % Eosinophils % Basophils % Nucleated RBC % Sodium 141 Potassium 3.2 L Chloride 104 Carbon Dioxide 32 Anion Gap 5 L BUN 9.7 Creatinine 1.0 Est GFR (CKD-EPI)AfAm 101.98 Est GFR (CKD-EPI)NonAf 87.99 POC Glucometer 109 Random Glucose 107 H Calcium 8.9 Total Bilirubin 0.6 AST 7 L ALT 9 L Alkaline Phosphatase 55 Total Protein 6.6 Albumin 3.2 L RPR Titer 10/24/18 10/25/18 10/25/18 07:00 05:51 07:00 WBC RBC Hgb Hct MCV MCH MCHC RDW Plt Count MPV Absolute Neuts (auto) Neutrophils % Lymphocytes % Monocytes % Eosinophils % Basophils % Nucleated RBC % Sodium Potassium 3.3 L Chloride Carbon Dioxide Anion Gap BUN Creatinine Est GFR (CKD-EPI)AfAm Est GFR (CKD-EPI)NonAf POC Glucometer 115 Random Glucose Calcium Total Bilirubin AST ALT Alkaline Phosphatase Total Protein Albumin RPR Titer Nonreactive 10/25/18 10/25/18 10/26/18 07:00 16:28 06:01 WBC 3.4 L RBC 3.83 L Hgb 9.2 L Hct 29.1 L MCV 76.1 L MCH 24.1 L MCHC 31.7 L RDW 17.9 H Plt Count 260 MPV 8.3 Absolute Neuts (auto) 2.1 Neutrophils % 60.5 Lymphocytes % 21.5 Monocytes % 14.2 H Eosinophils % 3.5 Basophils % 0.3 Nucleated RBC % 0 Sodium Potassium Chloride Carbon Dioxide Anion Gap BUN Creatinine Est GFR (CKD-EPI)AfAm Est GFR (CKD-EPI)NonAf POC Glucometer 89 123 Random Glucose Calcium Total Bilirubin AST ALT Alkaline Phosphatase Total Protein Albumin RPR Titer pt is aaox3 ambulating no acute distress no s/s of withdrawals - Treatment Hospital Course: Detox Protocol Followed, Detoxed Safely, Responded well, Discharged Condition Good, Rehab Referral Accepted Patient has Accepted a Rehab Referral to: pt declined rehab; referral provided - Medication Discharge Medications: Ambulatory Orders Aspirin [Aspirin EC] 325 mg PO DAILY 08/14/16 Emtricitab/Rilpiviri/Tenof Ala [Odefsey Tablet] 1 each PO DAILY 08/14/16 Albuterol Sulfate Inhaler - [Ventolin HFA Inhaler -] 2 inh PO Q4H PRN #1 inhaler 07/18/17 metFORMIN HCL [Glucophage -] 500 mg PO DAILY #30 tablet 07/18/17 Hydrochlorothiazide [Hctz -] 25 mg PO DAILY #30 tablet 07/19/17 Bacitracin - [Bacitracin Topical Ointment -] 1 applic TP BID #1 tube 06/13/18 Amlodipine Besylate 10 mg PO DAILY 10/23/18 Aspirin 81 mg PO DAILY 10/23/18 Atorvastatin Calcium [Lipitor] 20 mg PO DAILY 10/23/18 Hydralazine HCl 100 mg PO Q8H 10/23/18 Levetiracetam 500 mg PO BID 10/23/18 Lisinopril [Prinivil] 40 mg PO DAILY 10/23/18 Metoprolol Succinate [Toprol XL -] 100 mg PO BID 10/23/18 - Diagnosis (1) Anemia Current Visit: Yes Status: Chronic Qualifiers: Anemia type: iron deficiency Iron deficiency anemia type: unspecified iron deficiency Qualified Code(s): D50.9 - Iron deficiency anemia, unspecified (2) Hypokalemia Current Visit: Yes Status: Acute (3) Leukopenia Current Visit: Yes Status: Acute (4) Opioid dependence with withdrawal Current Visit: Yes Status: Acute (5) Cocaine dependence Current Visit: Yes Status: Chronic Qualifiers: Substance use status: uncomplicated Qualified Code(s): F14.20 - Cocaine dependence, uncomplicated (6) Hypertension Current Visit: Yes Status: Chronic Qualifiers: Hypertension type: essential hypertension Qualified Code(s): I10 - Essential (primary) hypertension (7) Alcohol dependence with uncomplicated withdrawal Current Visit: No Status: Acute (8) Elevated blood pressure reading in office with diagnosis of hypertension Current Visit: No Status: Acute (9) Asthma Current Visit: No Status: Chronic Qualifiers: Asthma severity: mild Asthma complication type: uncomplicated (10) DM2 (diabetes mellitus, type 2) Current Visit: No Status: Chronic Qualifiers: Diabetes mellitus complication status: without complication (11) HIV (human immunodeficiency virus infection) Current Visit: No Status: Chronic (12) Hepatitis C Current Visit: No Status: Chronic Qualifiers: Viral hepatitis chronicity: unspecified Hepatic coma status: without hepatic coma Qualified Code(s): B19.20 - Unspecified viral hepatitis C without hepatic coma (13) Left leg DVT Current Visit: No Status: Chronic Qualifiers: Affected thrombotic vein of extremity: unspecified lower extremity distal vein Chronicity: unspecified Qualified Code(s): I82.4Z2 - Acute embolism and thrombosis of unspecified deep veins of left distal lower extremity (14) Nicotine dependence Current Visit: No Status: Chronic Qualifiers: Nicotine product type: cigarettes Substance use status: in withdrawal Qualified Code(s): F17.213 - Nicotine dependence, cigarettes, with withdrawal (15) Obese Current Visit: No Status: Chronic Qualifiers: Obesity classification: adult class 2 (BMI 35 - 39.9) Serious obesity comorbidity presence: with serious comorbidity (16) S/P IVC filter Current Visit: No Status: Chronic (17) Old DE (myocardial infarction) Current Visit: No Status: Suspected - AMA Did Patient Leave Against Medical Advice: No
[2018-10-26] MEDS: levETIRAcetam 500 MG TABLET (FP) PO SCH (09:23)
[2018-10-26] MEDS: HYDROCHLOROTHIAZIDE 25 MG TABLET (FP) PO SCH (09:23)
[2018-10-26] MEDS: ASPIRIN 81 MG CHEWABLE TABLETS PO SCH (09:23)
[2018-10-26] MEDS: POTASSIUM CHLORIDE TABS 20 MEQ TABLET.ER (FP) PO SCH (09:23)
[2018-10-26] MEDS: amLODIPine BESYLATE 10 MG TABLET (FP) PO SCH (09:23)
[2018-10-26] MEDS: PRENATAL VITAMINS W/ FOLIC ACID TABLET (FP) PO SCH (09:23)
[2018-10-26] MEDS: LISINOPRIL 20 MG TABLET (FP) PO SCH (09:24)
[2018-10-26] MEDS: EMTRICITAB/RILPIVIRI/TENOF ALA (ODEFSEY) TABLET PO SCH (09:28)
== END 2018-10-26 11:07 | disposition home or self-care (01) | DRG 773 ==
LOC: YASAS 12:38 → Y6N 17:22
PROVIDERS: ADMIT Surgery; ATTEND Surgery
PROC: HZ2ZZZZ Detoxification Services for Substance Abuse Treatment (ICD-10-PCS; principal; 2018-10-23)
DX: F11.23 Opioid dependence with withdrawal (principal); F17.213 Nicotine dependence, cigarettes, with withdrawal; I10 Essential (primary) hypertension; I25.10 Atherosclerotic heart disease of native coronary artery without angina pectoris; I25.2 Old myocardial infarction; D50.9 Iron deficiency anemia, unspecified; D72.819 Decreased white blood cell count, unspecified; J45.909 Unspecified asthma, uncomplicated; E11.9 Type 2 diabetes mellitus without complications; Z21 Asymptomatic human immunodeficiency virus [HIV] infection status; B19.20 Unspecified viral hepatitis C without hepatic coma; E87.6 Hypokalemia; E66.9 Obesity, unspecified; Z68.31 Body mass index [BMI] 31.0-31.9, adult; Z86.718 Personal history of other venous thrombosis and embolism; Z95.828 Presence of other vascular implants and grafts; Z79.84 Long term (current) use of oral hypoglycemic drugs; Z95.5 Presence of coronary angioplasty implant and graft
CPT/HCPCS: 36415; 80053; 82962; 84132; 85025; 85027; 86593; 94640

== ENCOUNTER 2018-12-30 12:10 | Inpatient (IN) | payer OTHER ==
[2018-12-30 13:28] VITALS: BMI 29.8
--- NOTE | 2018-12-30 15:53 | HP ---
COWS - Scale Resting Pulse: 0= [place] 80 or Below Sweatin=Flushed/Facial Moisture Restless Observation: 0= Sits Still Pupil Size: 0= Normal to Room Light Bone or Joint Aches: 2= Severe Diffuse Aches Runny Nose/ Eye Tearin= Nasal Congestion GI Upset > 30mins: 0= None Tremor Observation: 0= None Yawning Observation: 0= None Anxiety or Irritability: 0= None Goose Flesh Skin: 0=Smooth Skin COWS Score: 5 CIWA Score - Admission Criteria OASAS Guidelines: Admission for Medically Managed Detox: Requires at least one of the followin. CIWA greater than 12 2. Seizures within the past 24 hours 3. Delirium tremens within the past 24 hours 4. Hallucinations within the past 24 hours 5. Acute intervention needed for co occurring medical disorder 6. Acute intervention needed for co occurring psychiatric disorder 7. Severe withdrawal that cannot be handled at a lower level of care (continued vomiting, continued diarrhea, abnormal vital signs) requiring intravenous medication and/or fluids 8. Admitting History and Physical - Smoking History Smoking history: Current every day smoker Have you smoked in the past 12 months: Yes Aproximately how many cigarettes per day: 6 - Alcohol/Substance Use Hx Alcohol Use: No Admission ROS BHS - HPI Allergies/Adverse Reactions: Allergies Allergy/AdvReac Type Severity Reaction Status Date / Time enoxaparin sodium Allergy Severe Rash Verified 12/30/18 13:12 [From Lovenox] History of Present Illness: patient here requesting detox from opiate use , reports sober x 1 mo after d/ c from this facility September 2018 , relapsed , current daily use 1 bundle/day via inhalation, hospitalized July 2018 @ [facility] for CHF / CVA , trach removed October 201810/28 . heroin : first age of use 28 , latest use yesterday , current symptoms as above , anticipating worsening symptoms later today , most recent detox at this facility 09/2018 , denies OD , longest sobriety 4 years w/ meetings. 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 PSHx : IVC filter 3 years ago @ [facility] psych : denies , denies current SI / HI Shx : lives in private home, alone , stopped working 2018 . Exam Limitations: Clinical Condition - Ebola screening Have you traveled outside of the country in the last 21 days: No Have you had contact with anyone from an Ebola affected area: No Do you have a fever: No - Review of Systems Constitutional: Loss of Appetite EENT: reports: See HPI, Other (s/p trach and removal) Respiratory: reports: No Symptoms reported Cardiac: reports: No Symptoms Reported GI: reports: Poor Appetite : reports: No Symptoms Reported Musculoskeletal: reports: See HPI, Muscle Pain Integumentary: reports: No Symptoms Reported Neuro: reports: Headache Endocrine: reports: See HPI Psychiatric: reports: Orientated x3 Patient History - Patient Medical History Hx Anemia: No Hx Asthma: Yes (Pt is on MDI) Hx Chronic Obstructive Pulmonary Disease (COPD): No Hx Cancer: No Hx Cardiac Disorders: Yes (cad) Hx Congestive Heart Failure: No Hx Hypertension: Yes (on meds) Hx Hypercholesterolemia: No Hx Pacemaker: No HX Cerebrovascular Accident: No Hx Seizures: No Hx Dementia: No Hx Diabetes: Yes Hx Gastrointestinal Disorders: No Hx Liver Disease: No Hx Genitourinary Disorders: No Hx Sexually Transmitted Disorders: No Hx Renal Disease (ESRD): No Hx Thyroid Disease: No Hx Human Immunodeficiency Virus (HIV): Yes (SINCE 2010, [place] ) Hx Hepatitis C: No Hx Depression: No Hx Suicide Attempt: No Hx Bipolar Disorder: No Hx Schizophrenia: No - Patient Surgical History Past Surgical History: Yes Hx Neurologic Surgery: No Hx Cataract Extraction: No Hx Cardiac Surgery: Yes (Cardiac cath stent in 2009) Hx Lung Surgery: No Hx Breast Surgery: No Hx Breast Biopsy: No Hx Abdominal Surgery: No Hx Appendectomy: No Hx Cholecystectomy: No Hx Genitourinary Surgery: No Hx Section: No Hx Orthopedic Surgery: No Other Surgical History: IVC FILTER IN 2009 Anesthesia Reaction: No - PPD History Date: 08/16/16 - Smoking Cessation Smoking history: Current every day smoker Have you smoked in the past 12 months: Yes Aproximately how many cigarettes per day: 6 Hx Chewing Tobacco Use: No Initiated information on smoking cessation: No - Substances abused Heroin Substance route: Inhalation Frequency: Daily Amount used: 1 bundle daily Age of first use: 28 Date of last use: 12/29/18 Cocaine Substance route: Smoking Frequency: 1-2 times per week Amount used: 1 bag Age of first use: 28 Date of last use: 12/29/18 Admission Physical Exam BHS - Vital Signs Vital Signs: Vital Signs - 24 hr 12/30/18 13:20 Temperature 96.2 F L Pulse Rate 60 Respiratory 20 Rate Blood Pressure 175/94 H - Physical General Appearance: Yes: Mild Distress, Intoxicated, Anxious HEENTM: Yes: EOMI, Hearing grossly Normal, Normocephalic, Muffled/Hoarse Voice, Other (trach scar) Respiratory: Yes: Chest Non-Tender, No Respiratory Distress, No Accessory Muscle Use, Wheezing, Expiration Neck: Yes: No masses,lesions,Nodules, Trachea in good position Cardiology: Yes: Regular Rhythm, Regular Rate, S1, S2, Edema (pedal scout ( trace )), Diastolic Murmur, Other (QTc 469 ms 06/10/18) Abdominal: Yes: Non Tender, Soft Back: Yes: Normal Inspection Musculoskeletal: Yes: full range of Motion, Gait Steady Extremities: Yes: Normal Range of Motion, Non-Tender Neurological: Yes: Fully Oriented, Alert, Motor Strength 5/5, Depressed Affect Integumentary: Yes: Warm, Other (scar from prior trach) - Diagnostic (1) Opioid dependence with withdrawal Current Visit: Yes Status: Acute (2) Cocaine dependence Current Visit: Yes Status: Chronic Qualifiers: Substance use status: uncomplicated Qualified Code(s): F14.20 - Cocaine dependence, uncomplicated (3) Nicotine dependence Current Visit: Yes Status: Chronic Qualifiers: Nicotine product type: cigarettes Breathalyzer - Breathalyzer Breathalyzer: 0 Urine Drug Screen - Test Device Lot number: [id number] Expiration date: 08/26/20 - Control Is test valid?: Yes - Results Drug screen NEGATIVE: No Urine drug screen results: BRADLEY-Cocaine, FEN-Fentanyl, MOP-Opiates, OXY-Oxycodone Inpatient Rehab Admission - Rehab Decision to Admit Inpatient rehab admission?: No
[2018-12-30] MEDS ORDERED: ALBUTEROL SO4 8 GM HFA INHALER IH PRN (15:55)
[2018-12-30] MEDS ORDERED: ALBUTEROL SO4 0.083% IH SOL 2.5 MG/3 ML VIAL.NEB. NEB PRN (16:01)
[2018-12-30] MEDS ORDERED: MAGNESIUM CITRATE 300 ML BOTTLE PO PRN (16:02)
[2018-12-30] MEDS ORDERED: hydrOXYzine PAMOATE 25 MG CAPSULE (FP) PO PRN (16:02)
[2018-12-30] MEDS ORDERED: ACETAMINOPHEN 325 MG TABLET (FP) PO PRN ×2 (16:02)
[2018-12-30] MEDS ORDERED: MAGNESIUM HYDROX 2400MG/30ML ORAL SUSPENSION 30 ML CUP PO PRN (16:02)
[2018-12-30] MEDS ORDERED: MAG HYDROX/AL HYDROX/SIMETH 30 ML UNIT-DOSE CUP PO PRN (16:02)
[2018-12-30] MEDS ORDERED: MENTHOL/PHENOL 1 EACH UD MM PRN (16:02)
[2018-12-30] MEDS ORDERED: BISMUTH SUBSALICYLATE 524 MG/30 ML UD PO PRN (16:02)
[2018-12-30] MEDS ORDERED: METHADONE HCL 10 MG TABLET (FOR DETOX USE ONLY) PO ONE (18:00)
[2018-12-30] MEDS: INSULIN SLIDING SCALE (NOVOLOG) 1 VIAL SQ SCH ×2 (18:04→22:05)
[2018-12-30] MEDS: hydrALAZINE HCL 50 MG TABLET (FP) PO SCH ×2 (18:06→22:04)
[2018-12-30] MEDS: ATORVASTATIN CA 20 MG TABLET (FP) PO SCH (22:04)
[2018-12-30] MEDS: levETIRAcetam 500 MG TABLET (FP) PO SCH (22:04)
[2018-12-30] MEDS: THIAMINE HCL 100 MG TABLET (FP) PO SCH (22:04)
[2018-12-30] MEDS: MELATONIN 5 MG TABLETS PO PRN (22:05)
--- NOTE | 2018-12-30 22:28 | PN ---
S Progress Note Note: Patient does not want finger sticks but consents to daily. Will adjust orders. CMP POC Glucometer 142 UNITS (80-120) 12/30/18 17:59
[2018-12-31] MEDS: hydrALAZINE HCL 50 MG TABLET (FP) PO SCH ×3 (07:10→22:09)
[2018-12-31] MEDS: metFORMIN HCL 500 MG TABLET (FP) PO SCH (07:11)
[2018-12-31] MEDS: INSULIN SLIDING SCALE (NOVOLOG) 1 VIAL SQ SCH ×3 (07:12→16:50)
[2018-12-31] MEDS ORDERED: METHADONE HCL 5 MG TABLET (FOR DETOX USE ONLY) ONE (09:05)
[2018-12-31] MEDS ORDERED: METHADONE HCL 10 MG TABLET (FOR DETOX USE ONLY) ONE (09:05)
[2018-12-31] MEDS ORDERED: METHADONE (DETOX) 20 MG, METHADONE (DETOX) 5 MG PO ONE (10:00)
[2018-12-31] MEDS: PRENATAL VITAMINS W/ FOLIC ACID TABLET (FP) PO SCH (10:53)
[2018-12-31] MEDS: EMTRICITAB/RILPIVIRI/TENOF ALA (ODEFSEY) TABLET PO SCH (10:53)
[2018-12-31] MEDS: HYDROCHLOROTHIAZIDE 25 MG TABLET (FP) PO SCH (10:53)
[2018-12-31] MEDS: amLODIPine BESYLATE 10 MG TABLET (FP) PO SCH (10:53)
[2018-12-31] MEDS: LISINOPRIL 20 MG TABLET (FP) PO SCH (10:53)
[2018-12-31] MEDS: levETIRAcetam 500 MG TABLET (FP) PO SCH ×2 (10:53→22:09)
[2018-12-31] MEDS: ASPIRIN 81 MG CHEWABLE TABLETS PO SCH (10:53)
[2018-12-31 11:18] LABS: ALBUMIN 3.2 g/dl (3.4-5.0); BILIRUBIN,TOTAL 0.5 mg/dL (0.2-1); BLOOD UREA NITROGEN 22.5 mg/dL (7-18); CALCIUM 8.8 mg/dL (8.5-10.1); CREATININE 1.3 mg/dL (0.55-1.3); HEMATOCRIT 30.5 % (35.4-49); HEMOGLOBIN 9.8 GM/dL (11.7-16.9); MCH 23.7 pg (25.7-33.7); PLATELET COUNT 195 K/MM3 (134-434); POTASSIUM 3.5 mmol/L (3.5-5.1); RBC 4.12 M/mm3 (4.00-5.60); RDW 18.2 % (11.9-15.9); TOT PROT 6.4 g/dl (6.4-8.2); WHITE BLOOD COUNT 3.7 K/mm3 (4.0-10.0)
--- NOTE | 2018-12-31 15:13 | PN ---
BHS COWS - Scale Resting Pulse: 0= [place] 80 or Below Sweatin= Chills/Flushing Restless Observation: 1= Difficult to Sit Still Pupil Size: 0= Normal to Room Light Bone or Joint Aches: 1= Mild Discomfort Runny Nose/ Eye Tearin= None GI Upset > 30mins: 0= None Tremor Observation of Outstretched Hands: 0= None Yawning Observation: 1= 1-2x During Session Anxiety or Irritability: 2=Irritable/Anxious Goose Flesh Skin: 0=Smooth Skin COWS Score: 6 BHS Progress Note (SOAP) Subjective: Anxious, Body Aches, Sweating. Objective: PATIENT A & O X 3, OBSERVED AMBULATING ON DETOX UNIT UNASSISTED. IN NO ACUTE DISTRESS. 12/31/18 15:09 Vital Signs Temperature 96.9 F L 12/31/18 14:29 Pulse Rate 80 12/31/18 14:29 Respiratory Rate 18 12/31/18 14:29 Blood Pressure 132/67 12/31/18 14:29 O2 Sat by Pulse Oximetry (%) Laboratory Tests 12/30/18 12/31/18 12/31/18 17:59 08:10 08:10 WBC 3.7 L RBC 4.12 Hgb 9.8 L Hct 30.5 L MCV 74.0 L MCH 23.7 L MCHC 32.0 RDW 18.2 H Plt Count 195 D MPV 9.0 Sodium 142 Potassium 3.5 Chloride 105 Carbon Dioxide 31 Anion Gap 5 L BUN 22.5 H Creatinine 1.3 Est GFR (CKD-EPI)AfAm 73.74 Est GFR (CKD-EPI)NonAf 63.62 POC Glucometer 142 Random Glucose 88 Calcium 8.8 Total Bilirubin 0.5 AST 9 L ALT 8 L Alkaline Phosphatase 76 Total Protein 6.4 Albumin 3.2 L RPR Titer 12/31/18 12/31/18 08:10 10:57 WBC RBC Hgb Hct MCV MCH MCHC RDW Plt Count MPV Sodium Potassium Chloride Carbon Dioxide Anion Gap BUN Creatinine Est GFR (CKD-EPI)AfAm Est GFR (CKD-EPI)NonAf POC Glucometer 124 Random Glucose Calcium Total Bilirubin AST ALT Alkaline Phosphatase Total Protein Albumin RPR Titer Nonreactive LABS NOTED. PATIENT HAS BEEN ANEMIC AND LEUKOPENIC ON PREVIOUS ADMISSIONS. PATIENT DENIES KNOWN HISTORY OF HEMATOLOGIC / IMMUNE DISORDER. 12/31/18 15:11 Assessment: 12/31/18 15:12 WITHDRAWAL SYMPTOMS. ANEMIA. 12/31/18 15:14 Plan: CONTINUE DETOX. INCREASE DAILY PO WATER INTAKE. FEOSOL, 325 MG PO TIDCM FOR ANEMIA NOTED ON DETOX ADMISSION LABORATORY ASSESSMENT. RE-CHECK CBC ON 01/02/2019 TO SEE IF ANY CHANGE FROM DETOX ADMISSION CBC RESULTS.
[2018-12-31] MEDS: FERROUS SO4 325 MG TABLET (FP) PO SCH (18:16)
[2018-12-31] MEDS: THIAMINE HCL 100 MG TABLET (FP) PO SCH (22:09)
[2018-12-31] MEDS: ATORVASTATIN CA 20 MG TABLET (FP) PO SCH (22:09)
[2018-12-31] MEDS: MELATONIN 5 MG TABLETS PO PRN (22:09)
[2019-01-01] MEDS: hydrALAZINE HCL 50 MG TABLET (FP) PO SCH ×3 (05:38→22:08)
[2019-01-01] MEDS: metFORMIN HCL 500 MG TABLET (FP) PO SCH (06:16)
[2019-01-01] MEDS: FERROUS SO4 325 MG TABLET (FP) PO SCH ×3 (07:15→17:31)
--- NOTE | 2019-01-01 09:51 | PN ---
BHS COWS - Scale Resting Pulse: 0= [place] 80 or Below Sweatin= Chills/Flushing Restless Observation: 0= Sits Still Pupil Size: 1= Pupils >than Normal Bone or Joint Aches: 1= Mild Discomfort Runny Nose/ Eye Tearin= None GI Upset > 30mins: 0= None Tremor Observation of Outstretched Hands: 1= Tremor [place], Not Seen Yawning Observation: 0= None Anxiety or Irritability: 1=Feels Anxious/Irritable Goose Flesh Skin: 0=Smooth Skin COWS Score: 5 BHS Progress Note (SOAP) Subjective: doing well with methadone detox regimen mild body aches less tremor bp within acceptable range patient will return to hiv provider for follow up Objective: 01/01/19 09:48 Vital Signs Temperature 98.1 F 01/01/19 09:03 Pulse Rate 61 01/01/19 09:03 Respiratory Rate 18 01/01/19 09:03 Blood Pressure 122/66 01/01/19 09:03 O2 Sat by Pulse Oximetry (%) Laboratory Last Values WBC 3.7 K/mm3 (4.0-10.0) L 12/31/18 08:10 RBC 4.12 M/mm3 (4.00-5.60) 12/31/18 08:10 Hgb 9.8 GM/dL (11.7-16.9) L 12/31/18 08:10 Hct 30.5 % (35.4-49) L 12/31/18 08:10 MCV 74.0 fl (80-96) L 12/31/18 08:10 MCH 23.7 pg (25.7-33.7) L 12/31/18 08:10 MCHC 32.0 g/dl (32.0-35.9) 12/31/18 08:10 RDW 18.2 % (11.9-15.9) H 12/31/18 08:10 Plt Count 195 K/MM3 (134-434) D 12/31/18 08:10 MPV 9.0 fl (7.5-11.1) 12/31/18 08:10 Sodium 142 mmol/L (136-145) 12/31/18 08:10 Potassium 3.5 mmol/L (3.5-5.1) 12/31/18 08:10 Chloride 105 mmol/L (98-107) 12/31/18 08:10 Carbon Dioxide 31 mmol/L (21-32) 12/31/18 08:10 Anion Gap 5 MMOL/L (8-16) L 12/31/18 08:10 BUN 22.5 mg/dL (7-18) H 12/31/18 08:10 Creatinine 1.3 mg/dL (0.55-1.3) 12/31/18 08:10 Est GFR (CKD-EPI)AfAm 73.74 12/31/18 08:10 Est GFR (CKD-EPI)NonAf 63.62 12/31/18 08:10 POC Glucometer 112 UNITS (80-120) 01/01/19 05:39 Random Glucose 88 mg/dL (74-106) 12/31/18 08:10 Calcium 8.8 mg/dL (8.5-10.1) 12/31/18 08:10 Total Bilirubin 0.5 mg/dL (0.2-1) 12/31/18 08:10 AST 9 U/L (15-37) L 12/31/18 08:10 ALT 8 U/L (13-61) L 12/31/18 08:10 Alkaline Phosphatase 76 U/L (45-117) 12/31/18 08:10 Total Protein 6.4 g/dl (6.4-8.2) 12/31/18 08:10 Albumin 3.2 g/dl (3.4-5.0) L 12/31/18 08:10 RPR Titer Nonreactive (NONREACTIVE) 12/31/18 08:10 lab noted anemia with bun elevation patient denies dizziness skin warm encourage oral fluid Assessment: 01/01/19 09:49 opiate withdrawal sx 01/01/19 09:50 discuss medication assisted treatment program Plan: continue methadone detox regimen 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
[2019-01-01] MEDS ORDERED: METHADONE HCL 10 MG TABLET (FOR DETOX USE ONLY) PO ONE (10:00)
[2019-01-01] MEDS: LISINOPRIL 20 MG TABLET (FP) PO SCH (10:34)
[2019-01-01] MEDS: levETIRAcetam 500 MG TABLET (FP) PO SCH ×2 (10:34→22:08)
[2019-01-01] MEDS: amLODIPine BESYLATE 10 MG TABLET (FP) PO SCH (10:34)
[2019-01-01] MEDS: ASPIRIN 81 MG CHEWABLE TABLETS PO SCH (10:34)
[2019-01-01] MEDS: PRENATAL VITAMINS W/ FOLIC ACID TABLET (FP) PO SCH (10:34)
[2019-01-01] MEDS: HYDROCHLOROTHIAZIDE 25 MG TABLET (FP) PO SCH (10:34)
[2019-01-01] MEDS: EMTRICITAB/RILPIVIRI/TENOF ALA (ODEFSEY) TABLET PO SCH (10:35)
[2019-01-01] MEDS: THIAMINE HCL 100 MG TABLET (FP) PO SCH (22:08)
[2019-01-01] MEDS: MELATONIN 5 MG TABLETS PO PRN (22:08)
[2019-01-01] MEDS: ATORVASTATIN CA 20 MG TABLET (FP) PO SCH (22:08)
[2019-01-02] MEDS: hydrALAZINE HCL 50 MG TABLET (FP) PO SCH ×3 (05:17→22:13)
[2019-01-02] MEDS: metFORMIN HCL 500 MG TABLET (FP) PO SCH (07:09)
[2019-01-02] MEDS: FERROUS SO4 325 MG TABLET (FP) PO SCH ×3 (07:09→17:17)
[2019-01-02] MEDS ORDERED: METHADONE HCL 5 MG TABLET (FOR DETOX USE ONLY) ONE (08:23)
[2019-01-02] MEDS ORDERED: METHADONE HCL 10 MG TABLET (FOR DETOX USE ONLY) ONE (08:23)
[2019-01-02] MEDS ORDERED: METHADONE (DETOX) 10 MG, METHADONE (DETOX) 5 MG PO ONE (10:00)
[2019-01-02] MEDS: ASPIRIN 81 MG CHEWABLE TABLETS PO SCH (10:08)
[2019-01-02] MEDS: amLODIPine BESYLATE 10 MG TABLET (FP) PO SCH (10:08)
[2019-01-02] MEDS: HYDROCHLOROTHIAZIDE 25 MG TABLET (FP) PO SCH (10:08)
[2019-01-02] MEDS: EMTRICITAB/RILPIVIRI/TENOF ALA (ODEFSEY) TABLET PO SCH (10:08)
[2019-01-02] MEDS: LISINOPRIL 20 MG TABLET (FP) PO SCH (10:08)
[2019-01-02] MEDS: levETIRAcetam 500 MG TABLET (FP) PO SCH ×2 (10:09→22:13)
[2019-01-02] MEDS: PRENATAL VITAMINS W/ FOLIC ACID TABLET (FP) PO SCH (10:10)
[2019-01-02 11:29] LABS: BASO % 0.5 % (0-2.0); EOS % 4.3 % (0-4.5); HEMATOCRIT 31.9 % (35.4-49); MCH 23.3 pg (25.7-33.7); MCHC 31.4 g/dl (32.0-35.9); MEAN CELL VOLUME 74.4 fl (80-96); MEAN PLT VOLUME 9.2 fl (7.5-11.1); MONO % 14.5 % (3.8-10.2); NEUT % 55.7 % (42.8-82.8); PLATELET COUNT 205 K/MM3 (134-434); RBC 4.28 M/mm3 (4.00-5.60); RDW 18.5 % (11.9-15.9); WHITE BLOOD COUNT 3.3 K/mm3 (4.0-10.0)
--- NOTE | 2019-01-02 14:19 | PN ---
BHS COWS - Scale Resting Pulse: 0= [place] 80 or Below Sweatin= Chills/Flushing Restless Observation: 0= Sits Still Pupil Size: 0= Normal to Room Light Bone or Joint Aches: 1= Mild Discomfort Runny Nose/ Eye Tearin= None GI Upset > 30mins: 0= None Tremor Observation of Outstretched Hands: 0= None Yawning Observation: 1= 1-2x During Session Anxiety or Irritability: 2=Irritable/Anxious Goose Flesh Skin: 0=Smooth Skin COWS Score: 5 BHS Progress Note (SOAP) Subjective: Anxious, Sweating. Patient reports That Current withdrawal Detox Symptoms in General Are Subsiding in Severity. Objective: PATIENT A & O X 3, OBSERVED AMBULATING ON DETOX UNIT UNASSISTED. IN NO ACUTE DISTRESS. 01/02/19 14:20 Vital Signs Temperature 98.0 F 01/02/19 13:06 Pulse Rate 52 L 01/02/19 13:06 Respiratory Rate 18 01/02/19 13:06 Blood Pressure 143/79 01/02/19 13:06 O2 Sat by Pulse Oximetry (%) Laboratory Tests 12/30/18 12/31/18 12/31/18 17:59 08:10 08:10 WBC 3.7 L RBC 4.12 Hgb 9.8 L Hct 30.5 L MCV 74.0 L MCH 23.7 L MCHC 32.0 RDW 18.2 H Plt Count 195 D MPV 9.0 Absolute Neuts (auto) Neutrophils % Lymphocytes % Monocytes % Eosinophils % Basophils % Nucleated RBC % Sodium 142 Potassium 3.5 Chloride 105 Carbon Dioxide 31 Anion Gap 5 L BUN 22.5 H Creatinine 1.3 Est GFR (CKD-EPI)AfAm 73.74 Est GFR (CKD-EPI)NonAf 63.62 POC Glucometer 142 Random Glucose 88 Calcium 8.8 Total Bilirubin 0.5 AST 9 L ALT 8 L Alkaline Phosphatase 76 Total Protein 6.4 Albumin 3.2 L RPR Titer 12/31/18 12/31/18 01/01/19 08:10 10:57 05:39 WBC RBC Hgb Hct MCV MCH MCHC RDW Plt Count MPV Absolute Neuts (auto) Neutrophils % Lymphocytes % Monocytes % Eosinophils % Basophils % Nucleated RBC % Sodium Potassium Chloride Carbon Dioxide Anion Gap BUN Creatinine Est GFR (CKD-EPI)AfAm Est GFR (CKD-EPI)NonAf POC Glucometer 124 112 Random Glucose Calcium Total Bilirubin AST ALT Alkaline Phosphatase Total Protein Albumin RPR Titer Nonreactive 01/02/19 01/02/19 05:20 07:45 WBC 3.3 L RBC 4.28 Hgb 10.0 L Hct 31.9 L MCV 74.4 L MCH 23.3 L MCHC 31.4 L RDW 18.5 H Plt Count 205 MPV 9.2 Absolute Neuts (auto) 1.8 Neutrophils % 55.7 Lymphocytes % 25.0 Monocytes % 14.5 H Eosinophils % 4.3 Basophils % 0.5 Nucleated RBC % 0 Sodium Potassium Chloride Carbon Dioxide Anion Gap BUN Creatinine Est GFR (CKD-EPI)AfAm Est GFR (CKD-EPI)NonAf POC Glucometer 103 Random Glucose Calcium Total Bilirubin AST ALT Alkaline Phosphatase Total Protein Albumin RPR Titer LABS NOTED. RESULTS OF REPEAT CBC NOTED - MILD IMPROVEMENT NOTED IN ANEMIA. 01/02/19 14:21 Assessment: 01/02/19 14:21 WITHDRAWAL SYMPTOMS. ANEMIA. AZOTEMIA. Plan: CONTINUE DETOX. INCREASE DAILY PO WATER INTAKE. CONTINUE FEOSOL PO.
[2019-01-02] MEDS: ATORVASTATIN CA 20 MG TABLET (FP) PO SCH (22:13)
[2019-01-02] MEDS: MELATONIN 5 MG TABLETS PO PRN (22:13)
[2019-01-02] MEDS: THIAMINE HCL 100 MG TABLET (FP) PO SCH (22:13)
[2019-01-03] MEDS: hydrALAZINE HCL 50 MG TABLET (FP) PO SCH ×3 (05:20→22:02)
[2019-01-03] MEDS: metFORMIN HCL 500 MG TABLET (FP) PO SCH (07:16)
[2019-01-03] MEDS: FERROUS SO4 325 MG TABLET (FP) PO SCH ×3 (07:16→17:18)
[2019-01-03] MEDS ORDERED: METHADONE HCL 10 MG TABLET (FOR DETOX USE ONLY) PO ONE (10:00)
[2019-01-03] MEDS: PRENATAL VITAMINS W/ FOLIC ACID TABLET (FP) PO SCH (10:01)
[2019-01-03] MEDS: LISINOPRIL 20 MG TABLET (FP) PO SCH (10:01)
[2019-01-03] MEDS: levETIRAcetam 500 MG TABLET (FP) PO SCH ×2 (10:01→22:02)
[2019-01-03] MEDS: amLODIPine BESYLATE 10 MG TABLET (FP) PO SCH (10:01)
[2019-01-03] MEDS: HYDROCHLOROTHIAZIDE 25 MG TABLET (FP) PO SCH (10:01)
[2019-01-03] MEDS: ASPIRIN 81 MG CHEWABLE TABLETS PO SCH (10:01)
[2019-01-03] MEDS: EMTRICITAB/RILPIVIRI/TENOF ALA (ODEFSEY) TABLET PO SCH (10:02)
--- NOTE | 2019-01-03 14:20 | PN ---
BHS COWS - Scale Resting Pulse: 0= [place] 80 or Below Sweatin= No chills or Flushing Restless Observation: 0= Sits Still Pupil Size: 0= Normal to Room Light Bone or Joint Aches: 0= None Runny Nose/ Eye Tearin= None GI Upset > 30mins: 0= None Tremor Observation of Outstretched Hands: 0= None Yawning Observation: 1= 1-2x During Session Anxiety or Irritability: 0= None Goose Flesh Skin: 0=Smooth Skin COWS Score: 1 BHS Progress Note (SOAP) Subjective: Patient denies current Withdrawal / Detox symptoms and reports that he feels well overall at this time. Objective: PATIENT A & O X 3, OBSERVED AMBULATING ON DETOX UNIT UNASSISTED. IN NO ACUTE DISTRESS. 01/03/19 14:18 Vital Signs Temperature 98.4 F 01/03/19 13:28 Pulse Rate 52 L 01/03/19 13:28 Respiratory Rate 16 01/03/19 13:28 Blood Pressure 121/69 01/03/19 13:28 O2 Sat by Pulse Oximetry (%) Laboratory Tests 12/30/18 12/31/18 12/31/18 17:59 08:10 08:10 WBC 3.7 L RBC 4.12 Hgb 9.8 L Hct 30.5 L MCV 74.0 L MCH 23.7 L MCHC 32.0 RDW 18.2 H Plt Count 195 D MPV 9.0 Absolute Neuts (auto) Neutrophils % Lymphocytes % Monocytes % Eosinophils % Basophils % Nucleated RBC % Sodium 142 Potassium 3.5 Chloride 105 Carbon Dioxide 31 Anion Gap 5 L BUN 22.5 H Creatinine 1.3 Est GFR (CKD-EPI)AfAm 73.74 Est GFR (CKD-EPI)NonAf 63.62 POC Glucometer 142 Random Glucose 88 Calcium 8.8 Total Bilirubin 0.5 AST 9 L ALT 8 L Alkaline Phosphatase 76 Total Protein 6.4 Albumin 3.2 L RPR Titer 12/31/18 12/31/18 01/01/19 08:10 10:57 05:39 WBC RBC Hgb Hct MCV MCH MCHC RDW Plt Count MPV Absolute Neuts (auto) Neutrophils % Lymphocytes % Monocytes % Eosinophils % Basophils % Nucleated RBC % Sodium Potassium Chloride Carbon Dioxide Anion Gap BUN Creatinine Est GFR (CKD-EPI)AfAm Est GFR (CKD-EPI)NonAf POC Glucometer 124 112 Random Glucose Calcium Total Bilirubin AST ALT Alkaline Phosphatase Total Protein Albumin RPR Titer Nonreactive 01/02/19 01/02/19 01/03/19 05:20 07:45 05:22 WBC 3.3 L RBC 4.28 Hgb 10.0 L Hct 31.9 L MCV 74.4 L MCH 23.3 L MCHC 31.4 L RDW 18.5 H Plt Count 205 MPV 9.2 Absolute Neuts (auto) 1.8 Neutrophils % 55.7 Lymphocytes % 25.0 Monocytes % 14.5 H Eosinophils % 4.3 Basophils % 0.5 Nucleated RBC % 0 Sodium Potassium Chloride Carbon Dioxide Anion Gap BUN Creatinine Est GFR (CKD-EPI)AfAm Est GFR (CKD-EPI)NonAf POC Glucometer 103 101 Random Glucose Calcium Total Bilirubin AST ALT Alkaline Phosphatase Total Protein Albumin RPR Titer LABS NOTED. Assessment: 01/03/19 14:20 WITHDRAWAL SYMPTOMS. ANEMIA. AZOTEMIA. LEUKOPENIA. 01/03/19 14:20 Plan: CONTINUE DETOX. PATIENT SCHEDULED FOR D/C FROM DETOX UNIT TOMORROW.
[2019-01-03] MEDS: THIAMINE HCL 100 MG TABLET (FP) PO SCH (22:02)
[2019-01-03] MEDS: ATORVASTATIN CA 20 MG TABLET (FP) PO SCH (22:03)
[2019-01-04] MEDS: hydrALAZINE HCL 50 MG TABLET (FP) PO SCH (05:08)
[2019-01-04] MEDS ORDERED: METHADONE HCL 5 MG TABLET (FOR DETOX USE ONLY) PO ONE (06:00)
[2019-01-04 06:06] VITALS: BP 127/63; PULSE 48; TEMP 98.2
[2019-01-04] MEDS: metFORMIN HCL 500 MG TABLET (FP) PO SCH (06:23)
--- NOTE | 2019-01-04 08:44 | DS ---
[facility] Detox Discharge Summary Admission Date: 12/30/18 Discharge Date: 01/04/19 - History Present History: Alcohol Dependence, Cocaine Dependence, Opioid Dependence Pertinent Past History: HIV DM II Anemia Asthma Hep C - Physical Exam Results Vital Signs: Vital Signs Temperature 98.2 F 01/04/19 06:05 Pulse Rate 48 L 01/04/19 06:05 Respiratory Rate 18 01/04/19 06:05 Blood Pressure 127/63 01/04/19 06:05 O2 Sat by Pulse Oximetry (%) - Treatment Hospital Course: Detox Protocol Followed, Detoxed Safely, Responded well, Discharged Condition Good Patient has Accepted a Rehab Referral to: out patient referral - Medication Discharge Medications: Ambulatory Orders Bacitracin - [Bacitracin Topical Ointment -] 1 applic TP BID #1 tube 06/13/18 Amlodipine Besylate 10 mg PO DAILY 10/23/18 Aspirin 81 mg PO DAILY 10/23/18 Naloxone HCl [Narcan] 4 mg NS ASDIR PRN #1 spray 01/01/19 Albuterol Sulfate Inhaler - [Ventolin HFA Inhaler -] 2 inh PO Q4H PRN #1 inhaler 01/03/19 Amlodipine Besylate [Norvasc -] 10 mg PO DAILY #30 tablet 01/03/19 Aspirin [Aspirin EC] 325 mg PO DAILY #30 tablet.dr 01/03/19 Atorvastatin Calcium [Lipitor] 20 mg PO DAILY #30 tablet 01/03/19 Emtricitab/Rilpiviri/Tenof Ala [Odefsey Tablet] 1 each PO DAILY #30 tablet 01/03 Ferrous Sulfate [Feosol] 325 mg PO BID 7 Days #14 tablet 01/03/19 Hydralazine HCl 100 mg PO Q8H 30 Days #90 tablet 01/03/19 Hydrochlorothiazide [Hctz -] 25 mg PO DAILY #30 tablet 01/03/19 Levetiracetam 500 mg PO BID #60 tablet 01/03/19 Lisinopril [Prinivil] 40 mg PO DAILY #30 tablet 01/03/19 Metoprolol Succinate [Toprol XL -] 100 mg PO BID 30 Days #60 tab.sr.24h metFORMIN HCL [Glucophage -] 500 mg PO DAILY #30 tablet 01/03/19 - Diagnosis (1) Azotemia Status: Acute (2) Hypokalemia Status: Acute (3) Anemia Status: Chronic Qualifiers: Anemia type: iron deficiency Iron deficiency anemia type: unspecified iron deficiency Qualified Code(s): D50.9 - Iron deficiency anemia, unspecified (4) Leukopenia Status: Acute (5) Opioid dependence with withdrawal Status: Acute (6) Alcohol dependence with uncomplicated withdrawal Status: Acute (7) HIV (human immunodeficiency virus infection) Status: Chronic (8) Asthma Status: Chronic Qualifiers: Asthma severity: mild Asthma complication type: uncomplicated (9) Hypertension Status: Chronic Qualifiers: Hypertension type: essential hypertension Qualified Code(s): I10 - Essential (primary) hypertension (10) DM2 (diabetes mellitus, type 2) Status: Chronic Qualifiers: Diabetes mellitus complication status: without complication (11) Hepatitis C Status: Chronic Qualifiers: Viral hepatitis chronicity: unspecified Hepatic coma status: without hepatic coma Qualified Code(s): B19.20 - Unspecified viral hepatitis C without hepatic coma (12) Left leg DVT Status: Chronic Qualifiers: Affected thrombotic vein of extremity: unspecified lower extremity distal vein Chronicity: unspecified Qualified Code(s): I82.4Z2 - Acute embolism and thrombosis of unspecified deep veins of left distal lower extremity (13) S/P IVC filter Status: Chronic (14) Nicotine dependence Status: Chronic Qualifiers: Nicotine product type: cigarettes (15) Elevated blood pressure reading in office with diagnosis of hypertension Status: Acute (16) Cocaine dependence Status: Chronic Qualifiers: Substance use status: uncomplicated Qualified Code(s): F14.20 - Cocaine dependence, uncomplicated (17) Obese Status: Chronic Qualifiers: Obesity classification: adult class 2 (BMI 35 - 39.9) Serious obesity comorbidity presence: with serious comorbidity - AMA Did Patient Leave Against Medical Advice: No
--- NOTE | 2019-01-04 15:34 | PN ---
S Progress Note Note: Vital Signs Temperature 98.2 F 01/04/19 06:05 Pulse Rate 48 L 01/04/19 06:05 Respiratory Rate 18 01/04/19 06:05 Blood Pressure 127/63 01/04/19 06:05 O2 Sat by Pulse Oximetry (%) patient did not wait for provider to arrive. patient left the unit.
== END 2019-01-04 07:06 | disposition home or self-care (01) | DRG 773 ==
LOC: YASAS 12:10 → Y3N 16:46
PROVIDERS: ADMIT Allergy & Immunology; ATTEND Allergy & Immunology
PROC: HZ2ZZZZ Detoxification Services for Substance Abuse Treatment (ICD-10-PCS; principal; 2018-12-30)
DX: F11.23 Opioid dependence with withdrawal (principal); F10.230 Alcohol dependence with withdrawal, uncomplicated; F14.20 Cocaine dependence, uncomplicated; F17.210 Nicotine dependence, cigarettes, uncomplicated; I10 Essential (primary) hypertension; I25.2 Old myocardial infarction; I82.422 Acute embolism and thrombosis of left iliac vein; R79.89 Other specified abnormal findings of blood chemistry; D50.9 Iron deficiency anemia, unspecified; D72.819 Decreased white blood cell count, unspecified; Z21 Asymptomatic human immunodeficiency virus [HIV] infection status; J45.909 Unspecified asthma, uncomplicated; Z95.828 Presence of other vascular implants and grafts; E66.9 Obesity, unspecified; Z68.29 Body mass index [BMI] 29.0-29.9, adult; Z88.8 Allergy status to other drugs, medicaments and biological substances
CPT/HCPCS: 36415; 80053; 82962; 85025; 85027; 86593

== ENCOUNTER 2019-10-20 10:23 | Inpatient (IN) | payer OTHER ==
--- NOTE | 2019-10-20 11:10 | BHS.RME ---
Substance Use & Tx History - Substance Use History Heroin Substance amount: 1 gram Frequency of use: Daily Substance route: Inhalation (ex: sniffing or snorting) Date of Last Use: 10/20/19 Cocaine-Crack Substance amount: $100 Frequency of use: Daily Substance route: Smoking Date of Last Use: 10/20/19 - Last Treatment Date of last treatment: 12/2018 Treatment type: Substance Use Disorder (SARAH) Where was last treatment: Detox Physical/Psych/Mental Status - Behavior General Behavior: Decreased activity Eye Contact: Normal - Cooperativeness Cooperativeness: Cooperative - Thinking Thought Processes: Tight, Logical, Goal Directed - Physical Health Problems Is patient presently having any pain?: No Does patient presently have any injuries (include location): No Does patient currently have a fever: No Is patient : No COWS - Scale Resting Pulse: 0= [place] 80 or Below Sweatin= Chills/Flushing Restless Observation: 1= Difficult to Sit Still Pupil Size: 1= Pupils >than Normal Bone or Joint Aches: 1= Mild Discomfort Runny Nose/ Eye Tearin= Nasal Congestion GI Upset > 30mins: 1= Stomach Cramp Tremor Observation: 0= None Yawning Observation: 0= None Anxiety or Irritability: 0= None Goose Flesh Skin: 0=Smooth Skin COWS Score: 6
--- NOTE | 2019-10-20 12:39 | HP ---
COWS - Scale Resting Pulse: 0= [place] 80 or Below Sweatin= Chills/Flushing Restless Observation: 1= Difficult to Sit Still Pupil Size: 1= Pupils >than Normal Bone or Joint Aches: 1= Mild Discomfort Runny Nose/ Eye Tearin= Nasal Congestion GI Upset > 30mins: 1= Stomach Cramp Tremor Observation: 0= None Yawning Observation: 0= None Anxiety or Irritability: 0= None Goose Flesh Skin: 0=Smooth Skin COWS Score: 6 CIWA Score - Admission Criteria OASAS Guidelines: Admission for Medically Managed Detox: Requires at least one of the followin. CIWA greater than 12 2. Seizures within the past 24 hours 3. Delirium tremens within the past 24 hours 4. Hallucinations within the past 24 hours 5. Acute intervention needed for co occurring medical disorder 6. Acute intervention needed for co occurring psychiatric disorder 7. Severe withdrawal that cannot be handled at a lower level of care (continued vomiting, continued diarrhea, abnormal vital signs) requiring intravenous medication and/or fluids 8. Admitting History and Physical - Admission Chief Complaint: Mr. Browne is a 48 yo gentleman who presents to [facility] stating he needs detox from heroin use. History of Present Illness: Mr. Browne is a 48 yo gentleman who presents to [facility] stating he needs detox from heroin use. 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: per prior record: tx at [facility], per pt treated at [facility] PSH: tracheostomy when he had a stroke Psych: denies SOC: in an apt in the [place] Legal: none Substance Use History Heroin Substance amount: 1 gram Frequency of use: Daily Substance route: Inhalation (ex: sniffing or snorting) Date of Last Use: 10/20/19 Cocaine-Crack Substance amount: $100 Frequency of use: Daily Substance route: Smoking Date of Last Use: 10/20/19 - Last Treatment Date of last treatment: 12/2018 Treatment type: Substance Use Disorder (SARAH) Where was last treatment: Detox History Source: Patient Limitations to Obtaining History: No Limitations - Smoking History Smoking history: Current every day smoker Have you smoked in the past 12 months: Yes Aproximately how many cigarettes per day: 6 - Alcohol/Substance Use Hx Alcohol Use: No Admission ROS BHS - HPI Allergies/Adverse Reactions: Allergies Allergy/AdvReac Type Severity Reaction Status Date / Time enoxaparin sodium Allergy Severe Rash Verified 12/30/18 13:12 [From Lovenox] Exam Limitations: No Limitations - Ebola screening Have you traveled outside of the country in the last 21 days: No Have you been sick,other than usual withdrawal symptoms: No Do you have a fever: No - Review of Systems Constitutional: No Symptoms Reported EENT: reports: No Symptoms Reported Respiratory: reports: No Symptoms reported Cardiac: reports: Other (told CHF, leg swelling) GI: reports: No Symptoms Reported Musculoskeletal: reports: Muscle Weakness (states bilateral leg weakness post stroke) Integumentary: reports: No Symptoms Reported Neuro: reports: Other (stroke 2019, [facility], no neurologist following now, pt not sure of treatement, uses a rolling walker since that time) Endocrine: reports: Other (diabetic, no home glucose) Psychiatric: reports: No Sypmtoms Reported Patient History - Patient Medical History Hx Anemia: No Hx Asthma: Yes (Pt is on MDI) Hx Chronic Obstructive Pulmonary Disease (COPD): No Hx Cancer: No Hx Cardiac Disorders: Yes (cad) Hx Congestive Heart Failure: No Hx Hypertension: Yes (on meds) Hx Hypercholesterolemia: No Hx Pacemaker: No HX Cerebrovascular Accident: No Hx Seizures: No Hx Dementia: No Hx Diabetes: Yes Hx Gastrointestinal Disorders: No Hx Liver Disease: No Hx Genitourinary Disorders: No Hx Sexually Transmitted Disorders: No Hx Renal Disease (ESRD): No Hx Thyroid Disease: No Hx Human Immunodeficiency Virus (HIV): Yes (SINCE 2010, Ovdes ) Hx Hepatitis C: No Hx Depression: No Hx Suicide Attempt: No Hx Bipolar Disorder: No Hx Schizophrenia: No - Patient Surgical History Past Surgical History: Yes Hx Neurologic Surgery: No Hx Cataract Extraction: No Hx Cardiac Surgery: Yes (Cardiac cath stent in 2009) Hx Lung Surgery: No Hx Breast Surgery: No Hx Breast Biopsy: No Hx Abdominal Surgery: No Hx Appendectomy: No Hx Cholecystectomy: No Hx Genitourinary Surgery: No Hx Section: No Hx Orthopedic Surgery: No Other Surgical History: IVC FILTER IN 2009 Anesthesia Reaction: No - PPD History Date: 08/16/16 - Smoking Cessation Smoking history: Current every day smoker Have you smoked in the past 12 months: Yes Aproximately how many cigarettes per day: 6 Hx Chewing Tobacco Use: No Initiated information on smoking cessation: Yes 'Breaking Loose' booklet given: 10/20/19 Admission Physical Exam [facility] - Physical General Appearance: Yes: No Apparent Distress, Nourished, Appropriately Dressed HEENTM: Yes: EOMI, Hearing grossly Normal, Normocephalic, Normal Voice Respiratory: Yes: Lungs Clear, Normal Breath Sounds, No Accessory Muscle Use Neck: Yes: Within Normal Limits, Other (scar midline, pt states from tracheostomy) Breast: Yes: Breast Exam Deferred Cardiology: Yes: Regular Rate, S1, S2, Systolic Murmur (pt states he has a history of heart murmur) Abdominal: Yes: Normal Bowel Sounds, Non Tender, Flat, Soft Genitourinary: Yes: Other (deferred) Back: Yes: Normal Inspection Musculoskeletal: Yes: Gait Steady, Other (able to ambulate from chair to bed without walker and without assistance) Neurological: Yes: Other (bilateral leg hyperpigmentation, tight but not pitting skin to mid leg) Integumentary: Yes: Dry, Warm - Diagnostic (1) Opioid dependence with withdrawal Current Visit: Yes Status: Acute (2) DM2 (diabetes mellitus, type 2) Current Visit: Yes Status: Chronic Qualifiers: Diabetes mellitus complication status: without complication (3) HIV (human immunodeficiency virus infection) Current Visit: Yes Status: Chronic (4) Nicotine dependence Current Visit: Yes Status: Acute Qualifiers: Nicotine product type: cigarettes Substance use status: in withdrawal Qualified Code(s): F17.213 - Nicotine dependence, cigarettes, with withdrawal Cleared for Admission [facility] - Detox or Rehab [facility] Level of Care: Medically Managed Detox Regimen/Protocol: Methadone Breathalyzer - Breathalyzer Breathalyzer: 0 Urine Drug Screen - Test Device Lot number: [id number] Expiration date: 11/26/20 - Control Is test valid?: Yes - Results Drug screen NEGATIVE: No Urine drug screen results: BRADLEY-Cocaine, FEN-Fentanyl, MOP-Opiates Inpatient Rehab Admission - Rehab Decision to Admit Inpatient rehab admission?: No
[2019-10-20] MEDS ORDERED: IBUPROFEN 400 MG TABLET (FP) PO PRN (12:46)
[2019-10-20] MEDS ORDERED: ACETAMINOPHEN 325 MG TABLET (FP) PO PRN ×2 (12:46)
[2019-10-20] MEDS ORDERED: NICOTINE POLACRILEX 2 MG GUM BUC PRN (12:46)
[2019-10-20] MEDS ORDERED: MENTHOL/PHENOL 1 EACH UD MM PRN (12:46)
[2019-10-20] MEDS ORDERED: METHOCARBAMOL 500 MG TABLET PO PRN (12:46)
[2019-10-20] MEDS ORDERED: MAG HYDROX/AL HYDROX/SIMETH 30 ML UNIT-DOSE CUP PO PRN (12:46)
[2019-10-20] MEDS ORDERED: BISMUTH SUBSALICYLATE 524 MG/30 ML UD PO PRN (12:46)
[2019-10-20] MEDS ORDERED: MAGNESIUM CITRATE 300 ML BOTTLE PO PRN (12:46)
[2019-10-20] MEDS ORDERED: ONDANSETRON *ODT* 4 MG TABLET SL PRN (12:46)
[2019-10-20] MEDS ORDERED: MAGNESIUM HYDROX 2400MG/30ML ORAL SUSPENSION 30 ML CUP PO PRN (12:46)
[2019-10-20] MEDS ORDERED: ATORVASTATIN CA 20 MG TABLET (FP) PO SCH (13:45)
[2019-10-20] MEDS ORDERED: hydrOXYzine PAMOATE 25 MG CAPSULE (FP) PO SCH (14:00)
[2019-10-20] MEDS ORDERED: METHADONE HCL 10 MG TABLET (FOR DETOX USE ONLY) PO ONE (14:00)
[2019-10-20 14:12] VITALS: BMI 27.7
[2019-10-20] MEDS ORDERED: ALBUTEROL SO4 HFA INHALER IH PRN (15:12)
[2019-10-20] MEDS ORDERED: hydrOXYzine PAMOATE 25 MG CAPSULE (FP) PO PRN (15:12)
[2019-10-20] MEDS ORDERED: diazePAM 5 MG TABLET PO PRN (15:13)
--- NOTE | 2019-10-20 15:15 | PN ---
BHS Progress Note Note: Called by nurse on 6N Bradycardia documented in [facility] and upon arrival to 6N Will d/c metoprolol
[2019-10-20] MEDS: levETIRAcetam 500 MG TABLET (FP) PO SCH ×2 (15:30→21:33)
[2019-10-20] MEDS: amLODIPine BESYLATE 10 MG TABLET (FP) PO SCH (15:30)
[2019-10-20] MEDS: ASPIRIN 81 MG CHEWABLE TABLETS PO SCH (15:30)
--- NOTE | 2019-10-20 15:30 | EKG ---
Test Reason : Blood Pressure : / mmHG Vent. Rate : 052 BPM Atrial Rate : 052 BPM P-R Int : 206 ms QRS Dur : 116 ms QT Int : 494 ms P-R-T Axes : 023 -05 072 degrees QTc Int : 459 ms SINUS BRADYCARDIA LEFT VENTRICULAR HYPERTROPHY WITH QRS WIDENING INFERIOR INFARCT (CITED ON OR BEFORE 14-AUG-2016) ABNORMAL ECG WHEN COMPARED WITH ECG OF 10-JUN-2018 18:27, VENT. RATE HAS DECREASED BY 26 BPM QRS DURATION HAS INCREASED Confirmed by OG BENSON MD ([id number]) on 10/20/2019 3:30:37 PM Referred By: Confirmed By:OG BENSON MD
[2019-10-20] MEDS: LISINOPRIL 20 MG TABLET (FP) PO SCH (15:31)
[2019-10-20] MEDS: CLOPIDOGREL BISULFATE 75 MG TABLET (FP) PO SCH (15:32)
[2019-10-20] MEDS: FUROSEMIDE 40 MG TABLET (FP) PO SCH ×2 (15:37→15:43)
[2019-10-20] MEDS: metFORMIN HCL 500 MG TABLET (FP) PO SCH (16:53)
[2019-10-20 17:07] LABS: HEMATOCRIT 29.1 % (35.4-49); HEMOGLOBIN 8.9 GM/dL (11.7-16.9); MCHC 30.5 g/dl (32.0-35.9); MEAN CELL VOLUME 75.3 fl (80-96); MEAN PLT VOLUME 9.1 fl (7.5-11.1); PLATELET COUNT 161 K/MM3 (134-434); RBC 3.86 M/mm3 (4.00-5.60); RDW 22.9 % (11.9-15.9); WHITE BLOOD COUNT 3.4 K/mm3 (4.0-10.0)
[2019-10-20 17:40] LABS: ALBUMIN 3.2 g/dl (3.4-5.0); BILIRUBIN,TOTAL 0.6 mg/dL (0.2-1); BLOOD UREA NITROGEN 22.1 mg/dL (7-18); CALCIUM 8.9 mg/dL (8.5-10.1); CREATININE 1.4 mg/dL (0.55-1.3); POTASSIUM 3.1 mmol/L (3.5-5.1); TOT PROT 7.9 g/dl (6.4-8.2)
[2019-10-20] MEDS: ATORVASTATIN CA 40 MG TABLET (FP) PO SCH (21:33)
[2019-10-20] MEDS: cloNIDine HCL 0.1 MG TABLET PO PRN (21:33)
[2019-10-20] MEDS: THIAMINE HCL 100 MG TABLET (FP) PO SCH (21:34)
[2019-10-20] MEDS: MELATONIN 5 MG TABLETS PO SCH (21:34)
--- NOTE | 2019-10-21 06:21 | PN ---
[facility] Progress Note Note: Laboratory Tests 10/20/19 10/20/19 10/20/19 12:35 12:35 12:35 WBC 3.4 L RBC 3.86 L Hgb 8.9 L Hct 29.1 L MCV 75.3 L MCH 23.0 L MCHC 30.5 L RDW 22.9 H Plt Count 161 D MPV 9.1 Sodium 139 Potassium 3.1 L Chloride 102 Carbon Dioxide 30 Anion Gap 7 L BUN 22. BUN/ CREASTINE1 H Creatinine 1.4 H Est GFR (CKD-EPI)AfAm 67.42 Est GFR (CKD-EPI)NonAf 58.17 POC Glucometer Random Glucose 150 H Calcium 8.9 Total Bilirubin 0.6 AST 11 L ALT 10 L Alkaline Phosphatase 97 Total Protein 7.9 Albumin 3.2 L Syphilis Serology Non-reactive 10/20/19 10/20/19 10/20/19 13:22 16:57 21:09 WBC RBC Hgb Hct MCV MCH MCHC RDW Plt Count MPV Sodium Potassium Chloride Carbon Dioxide Anion Gap BUN Creatinine Est GFR (CKD-EPI)AfAm Est GFR (CKD-EPI)NonAf POC Glucometer 171 103 111 Random Glucose Calcium Total Bilirubin AST ALT Alkaline Phosphatase Total Protein Albumin Syphilis Serology HX DM, HIV, HTN LABS NOTED, CHRONIC ANEMIA NOTED ON PREVIOUS ADMISSION/ BUN/ CREATINE LEVELS SAME ON ADM NOTED IN . CLIENT DENIES RENAL DISEASE- K. 3.1 P- KDUR 40MEQ PO DAILY X 2 REPEAT CMP 10/23/19-6A PO HYDRATION ENCOURAGED
[2019-10-21] MEDS: metFORMIN HCL 500 MG TABLET (FP) PO SCH ×2 (06:54→17:24)
[2019-10-21] MEDS: FUROSEMIDE 40 MG TABLET (FP) PO SCH ×2 (06:54→14:28)
[2019-10-21] MEDS ORDERED: metFORMIN HCL 500 MG TABLET (FP) PO SCH (07:00)
[2019-10-21] MEDS ORDERED: METHADONE HCL 5 MG TABLET (FOR DETOX USE ONLY) ONE (09:04)
[2019-10-21] MEDS ORDERED: METHADONE HCL 10 MG TABLET (FOR DETOX USE ONLY) ONE (09:05)
[2019-10-21] MEDS ORDERED: METHADONE (DETOX) 20 MG, METHADONE (DETOX) 5 MG PO ONE (10:00)
[2019-10-21] MEDS: amLODIPine BESYLATE 10 MG TABLET (FP) PO SCH (11:04)
[2019-10-21] MEDS: LISINOPRIL 20 MG TABLET (FP) PO SCH (11:04)
[2019-10-21] MEDS: CLOPIDOGREL BISULFATE 75 MG TABLET (FP) PO SCH (11:05)
[2019-10-21] MEDS: POTASSIUM CHLORIDE TABS 20 MEQ TABLET.ER (FP) PO SCH (11:05)
[2019-10-21] MEDS: PRENATAL VITAMINS W/ FOLIC ACID TABLET (FP) PO SCH (11:09)
[2019-10-21] MEDS: levETIRAcetam 500 MG TABLET (FP) PO SCH ×3 (11:09→21:38)
[2019-10-21] MEDS: ASPIRIN 81 MG CHEWABLE TABLETS PO SCH (11:09)
[2019-10-21] MEDS: NICOTINE 7 MG/24 HOURS TOPICAL PATCH TD SCH (11:09)
--- NOTE | 2019-10-21 14:01 | PN ---
S COWS - Scale Resting Pulse: 0= [place] 80 or Below Sweatin= Chills/Flushing Restless Observation: 1= Difficult to Sit Still Pupil Size: 0= Normal to Room Light Bone or Joint Aches: 2= Severe Diffuse Aches Runny Nose/ Eye Tearin= None GI Upset > 30mins: 0= None Tremor Observation of Outstretched Hands: 2= Slight Tremor Visible Yawning Observation: 0= None Anxiety or Irritability: 1=Feels Anxious/Irritable Goose Flesh Skin: 0=Smooth Skin COWS Score: 7 S Progress Note (SOAP) Subjective: Complaints of tremors, joints aches, chills and anxiety. Objective: 10/21/19 13:57 Vital Signs 10/21/19 10/21/19 09:20 12:47 Temperature 97.7 F 97.3 F L Pulse Rate 60 56 L Respiratory 16 17 Rate Blood Pressure 160/71 142/72 O2 Sat by Pulse 95 96 Oximetry (%) Laboratory Last Values WBC 3.4 K/mm3 (4.0-10.0) L 10/20/19 12:35 RBC 3.86 M/mm3 (4.00-5.60) L 10/20/19 12:35 Hgb 8.9 GM/dL (11.7-16.9) L 10/20/19 12:35 Hct 29.1 % (35.4-49) L 10/20/19 12:35 MCV 75.3 fl (80-96) L 10/20/19 12:35 MCH 23.0 pg (25.7-33.7) L 10/20/19 12:35 MCHC 30.5 g/dl (32.0-35.9) L 10/20/19 12:35 RDW 22.9 % (11.9-15.9) H 10/20/19 12:35 Plt Count 161 K/MM3 (134-434) D 10/20/19 12:35 MPV 9.1 fl (7.5-11.1) 10/20/19 12:35 Sodium 139 mmol/L (136-145) 10/20/19 12:35 Potassium 3.1 mmol/L (3.5-5.1) L 10/20/19 12:35 Chloride 102 mmol/L (98-107) 10/20/19 12:35 Carbon Dioxide 30 mmol/L (21-32) 10/20/19 12:35 Anion Gap 7 MMOL/L (8-16) L 10/20/19 12:35 BUN 22.1 mg/dL (7-18) H 10/20/19 12:35 Creatinine 1.4 mg/dL (0.55-1.3) H 10/20/19 12:35 Est GFR (CKD-EPI)AfAm 67.42 10/20/19 12:35 Est GFR (CKD-EPI)NonAf 58.17 10/20/19 12:35 POC Glucometer 116 UNITS (80-120) 10/21/19 06:52 Random Glucose 150 mg/dL (74-106) H 10/20/19 12:35 Calcium 8.9 mg/dL (8.5-10.1) 10/20/19 12:35 Total Bilirubin 0.6 mg/dL (0.2-1) 10/20/19 12:35 AST 11 U/L (15-37) L 10/20/19 12:35 ALT 10 U/L (13-61) L 10/20/19 12:35 Alkaline Phosphatase 97 U/L (45-117) 10/20/19 12:35 Total Protein 7.9 g/dl (6.4-8.2) 10/20/19 12:35 Albumin 3.2 g/dl (3.4-5.0) L 10/20/19 12:35 Syphilis Serology Non-reactive (NONREACTIVE) 10/20/19 12:35 Labs noted with elevated BUN/CR and hypokalemia ( addressed by previous Provider) Assessment: 10/21/19 13:59 Alert and oriented x3, in no acute respiratory distress. Full ROM, ambulatory without assistance. Withdrawal symptoms. Elevated BUN/CR and hypokalemia. (addressed by previous Provider). Plan: Continue detox protocol. Repeat Labs in AM.
[2019-10-21] MEDS: THIAMINE HCL 100 MG TABLET (FP) PO SCH (21:28)
[2019-10-21] MEDS: ATORVASTATIN CA 40 MG TABLET (FP) PO SCH (21:28)
[2019-10-21] MEDS: MELATONIN 5 MG TABLETS PO SCH (21:28)
[2019-10-22] MEDS: FUROSEMIDE 40 MG TABLET (FP) PO SCH ×2 (06:27→13:15)
[2019-10-22] MEDS: metFORMIN HCL 500 MG TABLET (FP) PO SCH ×2 (06:27→16:46)
[2019-10-22] MEDS ORDERED: METHADONE HCL 10 MG TABLET (FOR DETOX USE ONLY) PO ONE (10:00)
[2019-10-22] MEDS: ASPIRIN 81 MG CHEWABLE TABLETS PO SCH (10:10)
[2019-10-22] MEDS: levETIRAcetam 500 MG TABLET (FP) PO SCH ×2 (10:10→21:54)
[2019-10-22] MEDS: CLOPIDOGREL BISULFATE 75 MG TABLET (FP) PO SCH (10:10)
[2019-10-22] MEDS: LISINOPRIL 20 MG TABLET (FP) PO SCH (10:10)
[2019-10-22] MEDS: amLODIPine BESYLATE 10 MG TABLET (FP) PO SCH (10:12)
[2019-10-22] MEDS: POTASSIUM CHLORIDE TABS 20 MEQ TABLET.ER (FP) PO SCH (10:12)
[2019-10-22] MEDS: NICOTINE 7 MG/24 HOURS TOPICAL PATCH TD SCH (10:12)
[2019-10-22] MEDS: PRENATAL VITAMINS W/ FOLIC ACID TABLET (FP) PO SCH (10:12)
--- NOTE | 2019-10-22 15:12 | PN ---
BHS COWS - Scale Resting Pulse: 0= [place] 80 or Below Sweatin= Chills/Flushing Restless Observation: 0= Sits Still Pupil Size: 0= Normal to Room Light Bone or Joint Aches: 1= Mild Discomfort Runny Nose/ Eye Tearin= Runny Nose/Eyes GI Upset > 30mins: 1= Stomach Cramp Tremor Observation of Outstretched Hands: 2= Slight Tremor Visible Yawning Observation: 0= None Anxiety or Irritability: 2=Irritable/Anxious Goose Flesh Skin: 0=Smooth Skin COWS Score: 9 BHS Progress Note (SOAP) Subjective: Feels ok, medication working ok Objective: 10/22/19 15:07 Laboratory Tests 10/20/19 10/20/19 10/20/19 12:35 12:35 12:35 WBC 3.4 L RBC 3.86 L Hgb 8.9 L Hct 29.1 L MCV 75.3 L MCH 23.0 L MCHC 30.5 L RDW 22.9 H Plt Count 161 D MPV 9.1 Sodium 139 Potassium 3.1 L Chloride 102 Carbon Dioxide 30 Anion Gap 7 L BUN 22.1 H Creatinine 1.4 H Est GFR (CKD-EPI)AfAm 67.42 Est GFR (CKD-EPI)NonAf 58.17 POC Glucometer Random Glucose 150 H Calcium 8.9 Total Bilirubin 0.6 AST 11 L ALT 10 L Alkaline Phosphatase 97 Total Protein 7.9 Albumin 3.2 L Syphilis Serology Non-reactive 10/20/19 10/20/19 10/20/19 13:22 16:57 21:09 WBC RBC Hgb Hct MCV MCH MCHC RDW Plt Count MPV Sodium Potassium Chloride Carbon Dioxide Anion Gap BUN Creatinine Est GFR (CKD-EPI)AfAm Est GFR (CKD-EPI)NonAf POC Glucometer 171 103 111 Random Glucose Calcium Total Bilirubin AST ALT Alkaline Phosphatase Total Protein Albumin Syphilis Serology 10/21/19 10/21/19 10/21/19 06:52 16:41 21:05 WBC RBC Hgb Hct MCV MCH MCHC RDW Plt Count MPV Sodium Potassium Chloride Carbon Dioxide Anion Gap BUN Creatinine Est GFR (CKD-EPI)AfAm Est GFR (CKD-EPI)NonAf POC Glucometer 116 106 105 Random Glucose Calcium Total Bilirubin AST ALT Alkaline Phosphatase Total Protein Albumin Syphilis Serology Labs reviewed: anemia, hyperglycemia, CALLUM, hypokalemia Assessment: 10/22/19 15:08 Withdrawal sxs Noted with HTN, anemia, hyperglycemia, CALLUM, hypokalemia Plan: Continue detox Encourage PO water intake HTN: continue antihypertensives, monitor b/p Anemia: mild, most likely due to substance use, continue vitamin, follow up with PCP for management post discharge Hyperglycemia secondary to DMT2: continue diabetic regimen CALLUM: encourage to drink more water, repeat BMP Hypokalemia: replenished, repeat serum K level
[2019-10-22] MEDS: cloNIDine HCL 0.1 MG TABLET PO PRN ×2 (17:21→21:53)
[2019-10-22] MEDS: MELATONIN 5 MG TABLETS PO SCH (21:53)
[2019-10-22] MEDS: ATORVASTATIN CA 40 MG TABLET (FP) PO SCH (21:54)
[2019-10-22] MEDS: THIAMINE HCL 100 MG TABLET (FP) PO SCH (21:54)
[2019-10-23] MEDS: metFORMIN HCL 500 MG TABLET (FP) PO SCH ×2 (06:09→17:32)
[2019-10-23] MEDS: FUROSEMIDE 40 MG TABLET (FP) PO SCH ×2 (06:09→14:44)
[2019-10-23] MEDS ORDERED: METHADONE (DETOX) 10 MG, METHADONE (DETOX) 5 MG PO ONE (10:00)
[2019-10-23] MEDS ORDERED: METHADONE HCL 10 MG TABLET (FOR DETOX USE ONLY) ONE (10:10)
[2019-10-23] MEDS ORDERED: METHADONE HCL 5 MG TABLET (FOR DETOX USE ONLY) ONE (10:10)
[2019-10-23] MEDS: CLOPIDOGREL BISULFATE 75 MG TABLET (FP) PO SCH (11:15)
[2019-10-23] MEDS: amLODIPine BESYLATE 10 MG TABLET (FP) PO SCH (11:15)
[2019-10-23] MEDS: levETIRAcetam 500 MG TABLET (FP) PO SCH ×2 (11:16→22:11)
[2019-10-23] MEDS: ASPIRIN 81 MG CHEWABLE TABLETS PO SCH (11:17)
[2019-10-23] MEDS: PRENATAL VITAMINS W/ FOLIC ACID TABLET (FP) PO SCH (11:20)
[2019-10-23] MEDS: LISINOPRIL 20 MG TABLET (FP) PO SCH (11:20)
[2019-10-23] MEDS: NICOTINE 7 MG/24 HOURS TOPICAL PATCH TD SCH (11:31)
--- NOTE | 2019-10-23 11:58 | PN ---
BHS COWS - Scale Resting Pulse: 0= [place] 80 or Below Sweatin= Chills/Flushing Restless Observation: 1= Difficult to Sit Still Pupil Size: 0= Normal to Room Light Bone or Joint Aches: 1= Mild Discomfort Runny Nose/ Eye Tearin= None GI Upset > 30mins: 0= None Tremor Observation of Outstretched Hands: 1= Tremor [place], Not Seen Yawning Observation: 1= 1-2x During Session Anxiety or Irritability: 1=Feels Anxious/Irritable Goose Flesh Skin: 0=Smooth Skin COWS Score: 6 BHS Progress Note (SOAP) Subjective: feeling better little sweats Objective: 10/23/19 11:57 Vital Signs Temperature 97.8 F 10/23/19 08:47 Pulse Rate 51 L 10/23/19 08:47 Respiratory Rate 18 10/23/19 08:47 Blood Pressure 151/82 10/23/19 08:47 O2 Sat by Pulse Oximetry (%) 95 10/23/19 05:40 aaox3 ambulating no acute distress Assessment: 10/23/19 11:57 mild withdrawals Plan: continue detox
[2019-10-23 12:05] LABS: ALBUMIN 3.2 g/dl (3.4-5.0); BILIRUBIN,TOTAL 0.9 mg/dL (0.2-1); BLOOD UREA NITROGEN 15.8 mg/dL (7-18); CALCIUM 9.2 mg/dL (8.5-10.1); CREATININE 1.1 mg/dL (0.55-1.3); POTASSIUM 3.7 mmol/L (3.5-5.1); TOT PROT 8.2 g/dl (6.4-8.2)
[2019-10-23] MEDS: EMTRICITAB/RILPIVIRI/TENOF ALA (ODEFSEY) TABLET PO SCH (14:43)
[2019-10-23] MEDS: ATORVASTATIN CA 40 MG TABLET (FP) PO SCH (22:11)
[2019-10-23] MEDS: THIAMINE HCL 100 MG TABLET (FP) PO SCH (22:11)
[2019-10-23] MEDS: MELATONIN 5 MG TABLETS PO SCH (22:13)
[2019-10-24] MEDS: FUROSEMIDE 40 MG TABLET (FP) PO SCH ×2 (05:50→15:35)
[2019-10-24] MEDS: metFORMIN HCL 500 MG TABLET (FP) PO SCH ×2 (06:16→17:26)
[2019-10-24] MEDS: EMTRICITAB/RILPIVIRI/TENOF ALA (ODEFSEY) TABLET PO SCH (08:01)
[2019-10-24] MEDS ORDERED: METHADONE HCL 10 MG TABLET (FOR DETOX USE ONLY) PO ONE (10:00)
--- NOTE | 2019-10-24 10:06 | PN ---
BHS COWS - Scale Resting Pulse: 0= [place] 80 or Below Sweatin= No chills or Flushing Restless Observation: 0= Sits Still Pupil Size: 0= Normal to Room Light Bone or Joint Aches: 1= Mild Discomfort Runny Nose/ Eye Tearin= None GI Upset > 30mins: 0= None Tremor Observation of Outstretched Hands: 1= Tremor [place], Not Seen Yawning Observation: 0= None Anxiety or Irritability: 1=Feels Anxious/Irritable Goose Flesh Skin: 0=Smooth Skin COWS Score: 3 BHS Progress Note (SOAP) Subjective: feeling better little anxiety Objective: 10/24/19 10:05 Vital Signs Temperature 98.0 F 10/24/19 05:43 Pulse Rate 53 L 10/24/19 05:43 Respiratory Rate 18 10/24/19 05:43 Blood Pressure 151/78 10/24/19 05:43 O2 Sat by Pulse Oximetry (%) 97 10/24/19 05:43 aaox3 ambulating no acute distress Assessment: 10/24/19 10:05 mild withdrawals Plan: continue detox d/c in am
[2019-10-24] MEDS: ASPIRIN 81 MG CHEWABLE TABLETS PO SCH (10:17)
[2019-10-24] MEDS: PRENATAL VITAMINS W/ FOLIC ACID TABLET (FP) PO SCH (10:17)
[2019-10-24] MEDS: amLODIPine BESYLATE 10 MG TABLET (FP) PO SCH (10:17)
[2019-10-24] MEDS: levETIRAcetam 500 MG TABLET (FP) PO SCH ×2 (10:17→22:32)
[2019-10-24] MEDS: NICOTINE 7 MG/24 HOURS TOPICAL PATCH TD SCH (10:17)
[2019-10-24] MEDS: LISINOPRIL 20 MG TABLET (FP) PO SCH (10:17)
[2019-10-24] MEDS: CLOPIDOGREL BISULFATE 75 MG TABLET (FP) PO SCH (10:17)
[2019-10-24] MEDS ORDERED: FUROSEMIDE 40 MG TABLET (FP) PO ONE (19:47)
--- NOTE | 2019-10-24 19:48 | PN ---
S Progress Note Note: per nursing , pt missed 2 p.m. dose of 40 mg Lasix and is requesting it now . Vital Signs - 24 hr 10/23/19 10/24/19 10/24/19 20:34 05:43 08:48 Temperature 97.7 F 98.0 F 97.8 F Pulse Rate 58 L 53 L 63 Respiratory 18 18 18 Rate Blood Pressure 131/62 151/78 157/80 O2 Sat by Pulse 96 97 Oximetry (%) 10/24/19 10/24/19 12:30 16:29 Temperature 97.5 F L 97.5 F L Pulse Rate 62 66 Respiratory 16 18 Rate Blood Pressure 126/75 126/73 O2 Sat by Pulse 98 Oximetry (%) P : Lasix 40 mg once ordered
[2019-10-24] MEDS: MELATONIN 5 MG TABLETS PO SCH (22:32)
[2019-10-24] MEDS: ATORVASTATIN CA 40 MG TABLET (FP) PO SCH (22:32)
[2019-10-24] MEDS: THIAMINE HCL 100 MG TABLET (FP) PO SCH (22:33)
[2019-10-25] MEDS: FUROSEMIDE 40 MG TABLET (FP) PO SCH (05:46)
[2019-10-25 05:56] VITALS: BP 144/83; PULSE 70; TEMP 98
[2019-10-25] MEDS ORDERED: METHADONE HCL 5 MG TABLET (FOR DETOX USE ONLY) PO ONE (06:00)
[2019-10-25] MEDS: EMTRICITAB/RILPIVIRI/TENOF ALA (ODEFSEY) TABLET PO SCH (07:51)
[2019-10-25] MEDS: metFORMIN HCL 500 MG TABLET (FP) PO SCH (07:51)
--- NOTE | 2019-10-25 08:29 | DS ---
[facility] Detox Discharge Summary Admission Date: 10/20/19 Discharge Date: 10/25/19 - History Present History: Alcohol Dependence, Cocaine Dependence, Opioid Dependence - Physical Exam Results Vital Signs: Vital Signs Temperature 98.0 F 10/25/19 05:19 Pulse Rate 70 10/25/19 05:19 Respiratory Rate 20 10/25/19 05:19 Blood Pressure 144/83 10/25/19 05:19 O2 Sat by Pulse Oximetry (%) 99 10/25/19 05:19 Pertinent Admission Physical Exam Findings: Vital Signs Temperature 98.0 F 10/25/19 05:19 Pulse Rate 70 10/25/19 05:19 Respiratory Rate 20 10/25/19 05:19 Blood Pressure 144/83 10/25/19 05:19 O2 Sat by Pulse Oximetry (%) 99 10/25/19 05:19 Laboratory Tests 10/20/19 10/20/19 10/20/19 12:35 12:35 12:35 WBC 3.4 L RBC 3.86 L Hgb 8.9 L Hct 29.1 L MCV 75.3 L MCH 23.0 L MCHC 30.5 L RDW 22.9 H Plt Count 161 D MPV 9.1 Sodium 139 Potassium 3.1 L Chloride 102 Carbon Dioxide 30 Anion Gap 7 L BUN 22.1 H Creatinine 1.4 H Est GFR (CKD-EPI)AfAm 67.42 Est GFR (CKD-EPI)NonAf 58.17 POC Glucometer Random Glucose 150 H Calcium 8.9 Total Bilirubin 0.6 AST 11 L ALT 10 L Alkaline Phosphatase 97 Total Protein 7.9 Albumin 3.2 L Levetiracetam Syphilis Serology Non-reactive COVID-19 (TONO) 10/20/19 10/20/19 10/20/19 12:35 12:35 13:22 WBC RBC Hgb Hct MCV MCH MCHC RDW Plt Count MPV Sodium Potassium Chloride Carbon Dioxide Anion Gap BUN Creatinine Est GFR (CKD-EPI)AfAm Est GFR (CKD-EPI)NonAf POC Glucometer 171 Random Glucose Calcium Total Bilirubin AST ALT Alkaline Phosphatase Total Protein Albumin Levetiracetam <1.0 L Syphilis Serology COVID-19 (TONO) Not detected 10/20/19 10/20/19 10/21/19 16:57 21:09 06:52 WBC RBC Hgb Hct MCV MCH MCHC RDW Plt Count MPV Sodium Potassium Chloride Carbon Dioxide Anion Gap BUN Creatinine Est GFR (CKD-EPI)AfAm Est GFR (CKD-EPI)NonAf POC Glucometer 103 111 116 Random Glucose Calcium Total Bilirubin AST ALT Alkaline Phosphatase Total Protein Albumin Levetiracetam Syphilis Serology COVID-19 (TONO) 10/21/19 10/21/19 10/23/19 16:41 21:05 06:13 WBC RBC Hgb Hct MCV MCH MCHC RDW Plt Count MPV Sodium Potassium Chloride Carbon Dioxide Anion Gap BUN Creatinine Est GFR (CKD-EPI)AfAm Est GFR (CKD-EPI)NonAf POC Glucometer 106 105 115 Random Glucose Calcium Total Bilirubin AST ALT Alkaline Phosphatase Total Protein Albumin Levetiracetam Syphilis Serology COVID-19 (TONO) 10/23/19 10/23/19 10/24/19 08:00 16:56 05:53 WBC RBC Hgb Hct MCV MCH MCHC RDW Plt Count MPV Sodium 138 Potassium 3.7 Chloride 98 Carbon Dioxide 32 Anion Gap 8 BUN 15.8 Creatinine 1.1 Est GFR (CKD-EPI)AfAm 90.24 Est GFR (CKD-EPI)NonAf 77.86 POC Glucometer 136 96 Random Glucose 109 H Calcium 9.2 Total Bilirubin 0.9 AST 10 L ALT 10 L Alkaline Phosphatase 102 Total Protein 8.2 Albumin 3.2 L Levetiracetam Syphilis Serology COVID-19 (TONO) 10/25/19 05:45 WBC RBC Hgb Hct MCV MCH MCHC RDW Plt Count MPV Sodium Potassium Chloride Carbon Dioxide Anion Gap BUN Creatinine Est GFR (CKD-EPI)AfAm Est GFR (CKD-EPI)NonAf POC Glucometer 93 Random Glucose Calcium Total Bilirubin AST ALT Alkaline Phosphatase Total Protein Albumin Levetiracetam Syphilis Serology COVID-19 (TONO) aaox3 ambulating no acute distress lungs CTA - Treatment Hospital Course: Detox Protocol Followed, Detoxed Safely, Responded well, Discharged Condition Good, Rehab Referral Accepted - Medication Discharge Medications: Ambulatory Orders Amlodipine Besylate 10 mg PO DAILY 10/23/18 Aspirin 81 mg PO DAILY 10/23/18 Albuterol Sulfate Inhaler - [Ventolin HFA Inhaler -] 2 inh PO Q4H PRN #1 inhaler 01/03/19 Emtricitab/Rilpiviri/Tenof Ala [Odefsey Tablet] 1 each PO DAILY #30 tablet 01/03/19 Ferrous Sulfate [Feosol] 325 mg PO BID 7 Days #14 tablet 01/03/19 Hydrochlorothiazide [Hctz -] 25 mg PO DAILY #30 tablet 01/03/19 Levetiracetam 500 mg PO BID #60 tablet 01/03/19 Lisinopril [Prinivil] 40 mg PO DAILY #30 tablet 01/03/19 metFORMIN HCL [Glucophage -] 500 mg PO DAILY #30 tablet 01/03/19 Atorvastatin Ca [Lipitor] 40 mg PO HS 10/20/19 Clopidogrel Bisulfate [Plavix] 75 mg PO DAILY 10/20/19 Furosemide [Lasix] 40 mg PO BID 10/20/19 Hydralazine HCl 100 mg PO DAILY 10/20/19 Labetalol HCl 300 mg PO TID 10/20/19 Multivitamin 1 each PO DAILY 10/20/19 - Diagnosis (1) Nicotine dependence Current Visit: Yes Status: Chronic Qualifiers: Nicotine product type: cigarettes Substance use status: uncomplicated Qualified Code(s): F17.210 - Nicotine dependence, cigarettes, uncomplicated (2) Opioid dependence with withdrawal Current Visit: Yes Status: Chronic (3) DM2 (diabetes mellitus, type 2) Current Visit: Yes Status: Chronic Qualifiers: Diabetes mellitus complication status: without complication (4) HIV (human immunodeficiency virus infection) Current Visit: Yes Status: Chronic (5) Alcohol dependence with uncomplicated withdrawal Current Visit: Yes Status: Acute (6) Elevated blood pressure reading in office with diagnosis of hypertension Current Visit: No Status: Acute (7) Hypokalemia Current Visit: No Status: Acute (8) Asthma Current Visit: No Status: Chronic Qualifiers: Asthma severity: mild Asthma complication type: uncomplicated (9) Cocaine dependence Current Visit: Yes Status: Chronic Qualifiers: Substance use status: uncomplicated Qualified Code(s): F14.20 - Cocaine dependence, uncomplicated (10) Hepatitis C Current Visit: No Status: Chronic Qualifiers: Viral hepatitis chronicity: unspecified Hepatic coma status: without hepatic coma Qualified Code(s): B19.20 - Unspecified viral hepatitis C without hepatic coma (11) Hypertension Current Visit: Yes Status: Chronic Qualifiers: Hypertension type: essential hypertension Qualified Code(s): I10 - Essential (primary) hypertension (12) Left leg DVT Current Visit: No Status: Chronic Qualifiers: Affected thrombotic vein of extremity: unspecified lower extremity distal vein Chronicity: unspecified Qualified Code(s): I82.4Z2 - Acute embolism and thrombosis of unspecified deep veins of left distal lower extremity (13) S/P IVC filter Current Visit: No Status: Chronic - AMA Did Patient Leave Against Medical Advice: No
[2019-10-25] MEDS ORDERED: MASKS NR ONE (09:19)
[2019-10-25] MEDS: CLOPIDOGREL BISULFATE 75 MG TABLET (FP) PO SCH (09:30)
[2019-10-25] MEDS: levETIRAcetam 500 MG TABLET (FP) PO SCH (09:30)
[2019-10-25] MEDS: LISINOPRIL 20 MG TABLET (FP) PO SCH (09:31)
[2019-10-25] MEDS: ASPIRIN 81 MG CHEWABLE TABLETS PO SCH (09:31)
[2019-10-25] MEDS: amLODIPine BESYLATE 10 MG TABLET (FP) PO SCH (09:31)
[2019-10-25] MEDS: PRENATAL VITAMINS W/ FOLIC ACID TABLET (FP) PO SCH (09:33)
[2019-10-25] MEDS: NICOTINE 7 MG/24 HOURS TOPICAL PATCH TD SCH (09:33)
== END 2019-10-25 09:45 | disposition home or self-care (01) | DRG 773 ==
LOC: YASAS 10:23 → Y6N 12:48
PROVIDERS: ADMIT Allergy & Immunology; ATTEND Allergy & Immunology
PROC: HZ2ZZZZ Detoxification Services for Substance Abuse Treatment (ICD-10-PCS; principal; 2019-10-20)
DX: F11.23 Opioid dependence with withdrawal (principal); F10.230 Alcohol dependence with withdrawal, uncomplicated; F14.20 Cocaine dependence, uncomplicated; F17.210 Nicotine dependence, cigarettes, uncomplicated; Z21 Asymptomatic human immunodeficiency virus [HIV] infection status; I25.10 Atherosclerotic heart disease of native coronary artery without angina pectoris; I11.0 Hypertensive heart disease with heart failure; I50.9 Heart failure, unspecified; Z95.5 Presence of coronary angioplasty implant and graft; E87.6 Hypokalemia; E11.9 Type 2 diabetes mellitus without complications; Z79.84 Long term (current) use of oral hypoglycemic drugs; J45.909 Unspecified asthma, uncomplicated; D64.9 Anemia, unspecified; N17.9 Acute kidney failure, unspecified; R00.1 Bradycardia, unspecified; B19.20 Unspecified viral hepatitis C without hepatic coma; I69.359 Hemiplegia and hemiparesis following cerebral infarction affecting unspecified side; R26.89 Other abnormalities of gait and mobility; Z86.718 Personal history of other venous thrombosis and embolism; Z95.828 Presence of other vascular implants and grafts; Z99.89 Dependence on other enabling machines and devices; Z86.69 Personal history of other diseases of the nervous system and sense organs; Z79.02 Long term (current) use of antithrombotics/antiplatelets
CPT/HCPCS: 36415; 80053; 80177; 82962; 85027; 86780; 93005; 93010; J0735; U0003

== ENCOUNTER 2020-01-04 10:38 | Inpatient (IN) | payer OTHER ==
--- OUTSIDE RECORDS SUMMARY | 2020-01-04 10:42 | XMS ---
:1970 Author Organization [facility] Support Name Relationship Address Phone UE Unavailable Unavailable Unavailable BYAM [address] [place] [address] BYAM Spouse [address] [place] [address] Re-disclosure Warning The records that you are about to access may contain information from federally- assisted alcohol or drug abuse programs. If such information is present, then the following federally mandated warning applies: This information has been disclosed to you from records protected by federal confidentiality rules (42 CFR part 2). The federal rules prohibit you from making any further disclosure of this information unless further disclosure is expressly permitted by the written consent of the person to whom it pertains or as otherwise permitted by 42 CFR part 2. A general authorization for the release of medical or other information is NOT sufficient for this purpose. The Federal rules restrict any use of the information to criminally investigate or prosecute any alcohol or drug abuse patient.The records that you are about to access may contain highly sensitive health information, the redisclosure of which is protected by Article 27-F of the [facility] Public Health law. If you continue you may haveaccess to information: Regarding HIV / AIDS; Provided by facilities licensed or operated by the [facility] Office of Mental Health; or Provided by the [facility] Office for People With Developmental Disabilities. If such information is present, then the following [facility] mandated warning applies: This information has been disclosed to you from confidential records which are protected by state law. State law prohibits you from making any further disclosure of this information without the specific written consent of the person to whom it pertains, or as otherwise permitted by law. Any unauthorized further disclosure in violation of state law may result in a fine or skilled nursing sentence or both. A general authorization for the release of medical or other information is NOT sufficient authorization for further disclosure. Insurance Providers Payer name Policy type Policy ID Covered Covered libertarian's Policy P joanie / Coverage libertarian ID relationship to [facility] type willis TANNER [id number] SP [id number] 300 HEALTH NON CAP [place] [id number] SP [id number] [employer] Results ID Date Data Source [id number] 11/19/2019 07:53:00 AM EDT [facility] Name Value Range Interpretation Code Description Data Marium rce(s) Supporting Document(s ) SARS-CoV-2 [facility] RNA [facility] Ql TONO+probe This lab was ordered by [facility] a nd reported by [facility]. ID Date Data Source [id number] 11/15/2019 08:20:00 AM EDT [facility] Name Value Range Interpretation Code Description Data Marium rce(s) Supporting Document(s ) SARS-CoV-2 [facility] Ql TONO+probe This lab was ordered by [facility] a nd reported by [facility]. ID Date Data Source [id number] 11/06/2019 04:38:00 PM EDT [facility] Name Value Range Interpretation Code Description Data Marium rce(s) Supporting Document(s ) SARS-CoV-2 [facility] Ql TONO+probe This lab was ordered by [facility] a nd reported by [facility]. ID Date Data Source [id number] 10/31/2019 01:08:00 PM EDT [facility] Name Value Range Interpretation Code Description Data Marium rce(s) Supporting Document(s ) SARS-CoV-2 [facility] Ql TONO+probe This lab was ordered by [facility] a nd reported by [facility]. ID Date Data Source [id number] 10/25/2019 10:53:00 PM EDT [facility] Name Value Range Interpretation Code Description Data Marium rce(s) Supporting Document(s ) SARS-CoV-2 [facility] Ql TONO+probe This lab was ordered by [facility] a nd reported by [facility]. ID Date Data Source [id number] 10/20/2019 12:35:00 PM EDT [facility] Name Value Range Interpretation Description Data Sup porting Code Source(s) Document(s ) SARS [facility] coronavirus 2 RNA This lab was ordered by [facility] Ac ian Santamaria and reported by [facility]. ID Date Data Source [id number] 10/06/2019 05:06:00 AM EDT [facility] Name Value Range Interpretation Code Description Data Marium rce(s) Supporting Document(s ) [facility]2 [facility] Ql TONO+probe This lab was ordered by [facility] a nd reported by [facility]. ID Date Data Source [id number] 09/27/2019 12:33:00 AM EDT [facility] Name Value Range Interpretation Code Description Data Marium rce(s) Supporting Document(s ) SARS-CoV-2 [facility] Ql TONO+probe This lab was ordered by [facility] a nd reported by [facility]. ID Date Data Source [id number] 09/09/2019 11:00:00 AM EDT [facility] Name Value Range Interpretation Code Description Data Marium rce(s) Supporting Document(s ) [facility] Ql TONO+probe This lab was ordered by [facility] a nd reported by [facility]. ID Date Data Source [id number] 08/12/2019 06:33:00 PM EDT [facility] Name Value Range Interpretation Code Description Data Marium rce(s) Supporting Document(s ) SARS-CoV-2 [facility] Ql TONO+probe This lab was ordered by [facility] a nd reported by [facility]. ID Date Data Source [id number] 06/15/2019 11:29:00 AM EDT [facility] Name Value Range Interpretation Code Description Data Marium rce(s) Supporting Document(s ) SARS-CoV-2 [facility] TOON+probe This lab was ordered by [facility] a nd reported by [facility]. Procedure
--- NOTE | 2020-01-04 10:56 | BHS.RME ---
Substance Use & Tx History - Substance Use History Heroin Substance amount: 1 bundle Frequency of use: Daily Substance route: Inhalation (ex: sniffing or snorting) Date of Last Use: 01/03/20 (started age 23) Nicotine Substance amount: 3 ciggs Frequency of use: Daily Substance route: Smoking Date of Last Use: 01/04/20 (started age 16) - Last Treatment Date of last treatment: 11/07-12/01/19 repair of dissecting AAA intrarenal Where was last treatment: Med/Surg Physical/Psych/Mental Status - Behavior General Behavior: Increased activity (restlessness, agitation) Eye Contact: Normal - Cooperativeness Cooperativeness: Cooperative - Thinking Thought Processes: Tight, Logical, Goal Directed - Physical Health Problems Is patient presently having any pain?: No Does patient presently have any injuries (include location): No Does patient currently have a fever: No Is patient : No COWS - Scale Resting Pulse: 0= [place] 80 or Below Sweatin= Chills/Flushing Restless Observation: 1= Difficult to Sit Still Pupil Size: 1= Pupils >than Normal Bone or Joint Aches: 2= Severe Diffuse Aches Runny Nose/ Eye Tearin= Runny Nose/Eyes GI Upset > 30mins: 2= Nausea/Diarrhea Tremor Observation: 1= Tremor [place], Not Seen Yawning Observation: 1= 1-2x During Session Anxiety or Irritability: 0= None Goose Flesh Skin: 3=Piloerection COWS Score: 14
[2020-01-04 11:36] VITALS: BMI 26.1
--- NOTE | 2020-01-04 11:50 | HP ---
COWS - Scale Resting Pulse: 0= [place] 80 or Below Sweatin= Chills/Flushing Restless Observation: 1= Difficult to Sit Still Pupil Size: 1= Pupils >than Normal Bone or Joint Aches: 2= Severe Diffuse Aches Runny Nose/ Eye Tearin= Runny Nose/Eyes GI Upset > 30mins: 2= Nausea/Diarrhea Tremor Observation: 1= Tremor [place], Not Seen Yawning Observation: 1= 1-2x During Session Anxiety or Irritability: 0= None Goose Flesh Skin: 3=Piloerection COWS Score: 14 CIWA Score - Admission Criteria OASAS Guidelines: Admission for Medically Managed Detox: Requires at least one of the followin. CIWA greater than 12 2. Seizures within the past 24 hours 3. Delirium tremens within the past 24 hours 4. Hallucinations within the past 24 hours 5. Acute intervention needed for co occurring medical disorder 6. Acute intervention needed for co occurring psychiatric disorder 7. Severe withdrawal that cannot be handled at a lower level of care (continued vomiting, continued diarrhea, abnormal vital signs) requiring intravenous medication and/or fluids 8. Admitting History and Physical - Smoking History Smoking history: Current every day smoker Have you smoked in the past 12 months: Yes Aproximately how many cigarettes per day: 4 - Alcohol/Substance Use Hx Alcohol Use: No Admission ROS S - [facility] Chief Complaint: " I want to keep clean." Allergies/Adverse Reactions: Allergies Allergy/AdvReac Type Severity Reaction Status Date / Time enoxaparin sodium Allergy Severe Rash Verified 10/20/19 13:40 [From [facility]] History of Present Illness: 49 year old male with history of opioid dependence with withdrawal. He was here in 12/02/19 after a long hospitalization for repair of a dissecting AAA intrarenal but then he was not in withdrawals and recommended to go to rehab. He did not follow up and instead relapsed and started using once again. - Substance Use History Heroin Substance amount: 1 bundle Frequency of use: Daily Substance route: Inhalation (ex: sniffing or snorting) Date of Last Use: 01/03/20 (started age 23) He has never overdosed but he has no narcan. Nicotine Substance amount: 3 ciggs Frequency of use: Daily Substance route: Smoking Date of Last Use: 01/04/20 (started age 16) - Last Treatment Date of last treatment: 11/07-12/01/19 repair of dissecting AAA intrarenal Where was last treatment: Med/Surg PMH: HIV, HTN, DM, Stroke 05/2018 with IVC, CAD by stent 2011 Psurg: Thoracic aortic dissecting AAA Psych: None Lives along in the [place] and no legal problems. COWS=14 Urine Tox: BRADLEY, FEN, MOP, MTD, MDMA admits to some street methadone use, de nies ecstasy - suspects it was cut into the cocaine. Exam Limitations: No Limitations - Ebola screening Have you traveled outside of the country in the last 21 days: No Have you had contact with anyone from an Ebola affected area: No Have you been sick,other than usual withdrawal symptoms: No Do you have a fever: No - Review of Systems Constitutional: Chills, Diaphoresis EENT: reports: No Symptoms Reported Respiratory: reports: No Symptoms reported Cardiac: reports: No Symptoms Reported GI: reports: No Symptoms Reported : reports: No Symptoms Reported Musculoskeletal: reports: No Symptoms Reported Integumentary: reports: No Symptoms Reported Neuro: reports: Headache, Tremors Endocrine: reports: No Symptoms Reported Hematology: reports: No Symptoms Reported Psychiatric: reports: Judgement Intact, Mood/Affect Appropiate, Orientated x3, Agitated, Anxious Other Systems: Reviewed and Negative Patient History - Patient Medical History Hx Anemia: No Hx Asthma: Yes Hx Chronic Obstructive Pulmonary Disease (COPD): No Hx Cancer: No Hx Cardiac Disorders: Yes (Stent placed in 2009) Hx Congestive Heart Failure: No Hx Hypertension: Yes Hx Hypercholesterolemia: No Hx Pacemaker: No HX Cerebrovascular Accident: No Hx Seizures: Yes ( and only in 05/2018 due to stroke) Hx Dementia: No Hx Diabetes: Yes (on metformin; FS 171) Hx Gastrointestinal Disorders: No Hx Liver Disease: No Hx Genitourinary Disorders: No Hx Sexually Transmitted Disorders: No Hx Renal Disease (ESRD): No Hx Thyroid Disease: No Hx Human Immunodeficiency Virus (HIV): Yes (SINCE 2010, Ovdes ) Hx Hepatitis C: No Hx Depression: No Hx Suicide Attempt: No Hx Bipolar Disorder: No Hx Schizophrenia: No - Patient Surgical History Past Surgical History: Yes Hx Neurologic Surgery: No Hx Cataract Extraction: No Hx Cardiac Surgery: Yes (Cardiac cath stent in 2009) Hx Lung Surgery: No Hx Breast Surgery: No Hx Breast Biopsy: No Hx Abdominal Surgery: No Hx Appendectomy: No Hx Cholecystectomy: No Hx Genitourinary Surgery: No Hx Section: No Hx Orthopedic Surgery: No Other Surgical History: IVC FILTER IN 2009 Anesthesia Reaction: No - PPD History Date: 10/22/19 Results: Negative - Smoking Cessation Smoking history: Current every day smoker Have you smoked in the past 12 months: Yes Aproximately how many cigarettes per day: 4 Cigars Per Day: 0 Hx Chewing Tobacco Use: No Initiated information on smoking cessation: Yes 'Breaking Loose' booklet given: 01/04/20 - Substances abused Heroin Substance route: Inhalation Frequency: Daily Amount used: 1 bundle Age of first use: 23 Date of last use: 01/03/20 Admission Physical Exam [facility] - Vital Signs Vital Signs: Vital Signs - 24 hr 01/04/20 11:34 Temperature 97.9 F Pulse Rate 55 L Respiratory 19 Rate Blood Pressure 167/80 - Physical General Appearance: Yes: Mild Distress, Tremorous, Irritable, Sweating, Anxious HEENTM: Yes: EOMI, Hearing grossly Normal, Normal ENT Inspection, Normocephalic, Normal Voice, GREG, Pharynx Normal, Tm's normal Respiratory: Yes: Chest Non-Tender, Lungs Clear, Normal Breath Sounds, No Respiratory Distress, No Accessory Muscle Use Neck: Yes: No masses,lesions,Nodules, Supple, Trachea in good position Breast: Yes: Within Normal Limits Cardiology: Yes: Regular Rhythm, Regular Rate, S1, S2 Abdominal: Yes: Normal Bowel Sounds, Non Tender, Soft, Surgical Scar (huge lateral left scar) Genitourinary: Yes: Within Normal Limits Back: Yes: Normal Inspection Musculoskeletal: Yes: full range of Motion, Gait Steady, Pelvis Stable Extremities: Yes: Normal Capillary Refill, Normal Inspection, Normal Range of Motion, Non-Tender Neurological: Yes: barmaid II-XII NML intact, Fully Oriented, Alert, Motor Strength 5/5, Normal Mood/Affect, Normal Response Integumentary: Yes: Normal Color, Warm Lymphatic: Yes: Within Normal Limits - Diagnostic (1) Asthma Current Visit: Yes Status: Chronic Qualifiers: Asthma severity: mild Asthma complication type: uncomplicated (2) Cocaine dependence Current Visit: Yes Status: Chronic Qualifiers: Substance use status: uncomplicated Qualified Code(s): F14.20 - Cocaine dependence, uncomplicated (3) DM2 (diabetes mellitus, type 2) Current Visit: Yes Status: Chronic Qualifiers: Diabetes mellitus complication status: without complication (4) HIV (human immunodeficiency virus infection) Current Visit: Yes Status: Chronic (5) Hepatitis C Current Visit: Yes Status: Chronic Qualifiers: Viral hepatitis chronicity: unspecified Hepatic coma status: without hepa tic coma Qualified Code(s): B19.20 - Unspecified viral hepatitis C without hepatic coma (6) Hypertension Current Visit: Yes Status: Chronic Qualifiers: Hypertension type: essential hypertension Qualified Code(s): I10 - Essential (primary) hypertension (7) Nicotine dependence Current Visit: Yes Status: Chronic Qualifiers: Nicotine product type: cigarettes Substance use status: uncomplicated Qualified Code(s): F17.210 - Nicotine dependence, cigarettes, uncomplicated (8) Opioid dependence with withdrawal Current Visit: Yes Status: Chronic (9) S/P IVC filter Current Visit: Yes Status: Chronic Cleared for Admission [facility] - Detox or Rehab S Level of Care: Medically Managed Detox Regimen/Protocol: Methadone Claeared for Rehab Admission: No Screened but not Admitted - Documentation of Visit Screened but not Admitted: No Breathalyzer - Breathalyzer Breathalyzer: 0 Vital Signs - Vital Signs Vital signs refused: No Temperature: 97.9 F Pulse Rate: 55 Respiratory Rate: 19 Blood Pressure: 167/80 BP Location: Right Arm Blood Pressure position: Sitting - Height Height: 5 ft 9 in - Weight Weight: 177 lb Weight measurement method: Standing scale - BMI Body Mass Index (BMI): 26.1 - Bowel Function Bowel Movement: No Urine Drug Screen - Test Device Lot number: [id number] Expiration date: 07/04/21 - Control Is test valid?: Yes - Results Drug screen NEGATIVE: No Urine drug screen results: BRADLEY-Cocaine, FEN-Fentanyl, MOP-Opiates, MTD- Methadone, MDMA-Ecstasy Inpatient Rehab Admission - Rehab Decision to Admit Inpatient rehab admission?: No
[2020-01-04] MEDS ORDERED: MAGNESIUM HYDROX 2400MG/30ML ORAL SUSPENSION 30 ML CUP PO PRN (12:01)
[2020-01-04] MEDS ORDERED: IBUPROFEN 400 MG TABLET (FP) PO PRN (12:01)
[2020-01-04] MEDS ORDERED: ACETAMINOPHEN 325 MG TABLET (FP) PO PRN ×2 (12:01)
[2020-01-04] MEDS ORDERED: NICOTINE POLACRILEX 2 MG GUM BUC PRN (12:01)
[2020-01-04] MEDS ORDERED: ONDANSETRON *ODT* 4 MG TABLET SL PRN (12:01)
[2020-01-04] MEDS ORDERED: MAGNESIUM CITRATE 300 ML BOTTLE PO PRN (12:01)
[2020-01-04] MEDS ORDERED: MAG HYDROX/AL HYDROX/SIMETH 30 ML UNIT-DOSE CUP PO PRN (12:01)
[2020-01-04] MEDS ORDERED: BISMUTH SUBSALICYLATE 262 MG/15 ML BTL PO PRN (12:01)
[2020-01-04] MEDS ORDERED: METHOCARBAMOL 500 MG TABLET PO PRN (12:01)
[2020-01-04] MEDS ORDERED: cloNIDine HCL 0.1 MG TABLET PO PRN (12:01)
[2020-01-04] MEDS ORDERED: METHADONE HCL 10 MG TABLET (FOR DETOX USE ONLY) PO ONE (12:01)
[2020-01-04] MEDS ORDERED: MENTHOL/PHENOL 1 EACH UD MM PRN (12:01)
[2020-01-04] MEDS ORDERED: ALBUTEROL SO4 HFA INHALER IH PRN (12:03)
[2020-01-04] MEDS: PRENATAL VITAMINS W/ FOLIC ACID TABLET (FP) PO SCH (13:48)
[2020-01-04] MEDS: NICOTINE 7 MG/24 HOURS TOPICAL PATCH TD SCH (13:48)
[2020-01-04] MEDS ORDERED: hydrOXYzine PAMOATE 25 MG CAPSULE (FP) PO SCH (14:00)
[2020-01-04] MEDS ORDERED: PATIENT'S OWN MEDICATION (NON-FORMULARY) (Labetalol Hcl [Labetalol Hcl] 300 MG) PO SCH (14:00)
[2020-01-04 14:30] LABS: HEMATOCRIT 28.2 % (35.4-49); HEMOGLOBIN 8.9 GM/dL (11.7-16.9); MCH 25.5 pg (25.7-33.7); MCHC 31.7 g/dl (32.0-35.9); MEAN CELL VOLUME 80.4 fl (80-96); MEAN PLT VOLUME 8.7 fl (7.5-11.1); PLATELET COUNT 209 K/MM3 (134-434); RBC 3.51 M/mm3 (4.00-5.60); RDW 17.9 % (11.9-15.9); WHITE BLOOD COUNT 4.4 K/mm3 (4.0-10.0)
--- OUTSIDE RECORDS SUMMARY | 2020-01-04 14:39 | XMS ---
:1970 Author Organization [facility] Support Name Relationship Address Phone UE Unavailable Unavailable Unavailable BYAM [address] [place] [address] BYAM Spouse [address] [place] [address] Re-disclosure Warning The records that you are [...] is protected by Article 27-F of the [facility] Public Health law. If you continue you may haveaccess to information: Regarding HIV / AIDS; Provided by facilities licensed or operated by the [facility] Office of Mental Health; or Provided by the [facility] Office for People With Developmental Disabilities. If such information is present, then the following [facility] mandated warning applies: This information has been [...] law may result in a fine or chcf sentence or both. A general authorization for the release of medical or other information is NOT sufficient authorization for further disclosure. Insurance Providers Payer name Policy type Policy ID Covered Covered constitution party's Policy P joanie / Coverage constitution party ID relationship to [facility] ormation type willis TANNER [id number] SP [id number] 300 HEALTH NON CAP [place] [id number] SP [id number] [place] Results ID Date Data Source [id number] 11/19/2019 07:53:00 AM EDT [facility] Name Value Range Interpretation Code Description Data Marium rce(s) Supporting Document(s ) SARS-CoV-2 [facility] Ql TONO+probe This lab was ordered by [facility] a nd reported by [facility]. ID Date Data Source [id number] 11/15/2019 08:20:00 AM EDT [facility] Name Value Range Interpretation Code Description Data Marium rce(s) Supporting Document(s ) SARS-CoV-2 [facility] Ql TONO+probe This lab was ordered by [facility] a nd reported by [facility]. ID Date Data Source [id number] 11/06/2019 04:38:00 PM EDT [facility] Name Value Range Interpretation Code Description Data Marium rce(s) Supporting Document(s ) SARS-CoV-2 [facility] Ql TONO+probe This lab was ordered by [facility] a nd reported by [facility]. ID Date Data Source [id number] 10/31/2019 01:08:00 PM EDT [facility] Name Value Range Interpretation Code Description Data Marium rce(s) Supporting Document(s ) SARS-CoV-2 [facility] Ql TONO+probe This lab was ordered by [facility] a nd reported by [facility]. ID Date Data Source [id number] 10/25/2019 10:53:00 PM EDT [facility] Name Value Range Interpretation Code Description Data Marium rce(s) Supporting Document(s ) SARS-CoV-2 [facility] Ql TONO+probe This lab was ordered by [facility] a nd reported by [facility]. ID Date Data Source [id number] 10/20/2019 12:35:00 PM EDT [facility] Name Value Range Interpretation Description Data Sup porting Code Source(s) Document(s ) SARS [facility] coronavirus 2 RNA This lab was ordered by [facility] Ac ian Santamaria and reported by [facility]. ID Date Data Source [id number] 10/06/2019 05:06:00 AM EDT [facility] Name Value Range Interpretation Code Description Data Marium rce(s) Supporting Document(s ) [facility] Ql TONO+probe This lab was ordered by [facility] a nd reported by [facility]. ID Date Data Source [id number] 09/27/2019 12:33:00 AM EDT [facility] Name Value Range Interpretation Code Description Data Marium rce(s) Supporting Document(s ) SARS-CoV-2 [facility] Ql TONO+probe This lab was ordered by [facility] a nd reported by [facility]. ID Date Data Source [id number] 09/09/2019 11:00:00 AM EDT [facility] Name Value Range Interpretation Code Description Data Marium rce(s) Supporting Document(s ) [facility]2 [facility] Ql TONO+probe This lab was ordered by [facility] a nd reported by [facility]. ID Date Data Source [id number] 08/12/2019 06:33:00 PM EDT [facility] Name Value Range Interpretation Code Description Data Marium rce(s) Supporting Document(s ) [facility]-2 [facility] Ql TONO+probe This lab was ordered by [facility] a nd reported by [facility]. ID Date Data Source [id number] 06/15/2019 11:29:00 AM EDT [facility] Name Value Range Interpretation Code Description Data Marium rce(s) Supporting Document(s ) SARS-CoV-2 [facility] TONO+probe This lab was ordered by [facility] a nd reported by [facility]. Procedure
[2020-01-04] MEDS: FUROSEMIDE 40 MG TABLET (FP) PO SCH (14:57)
[2020-01-04] MEDS: LABETALOL HCL 100 MG, LABETALOL HCL 200 MG PO SCH ×2 (14:57→22:56)
[2020-01-04 14:59] LABS: ALBUMIN 3.6 g/dl (3.4-5.0); BILIRUBIN,TOTAL 0.5 mg/dL (0.2-1); BLOOD UREA NITROGEN 35.2 mg/dL (7-18); CALCIUM 9.2 mg/dL (8.5-10.1); CREATININE 2.1 mg/dL (0.55-1.3); POTASSIUM 4.4 mmol/L (3.5-5.1); TOT PROT 8.6 g/dl (6.4-8.2)
[2020-01-04] MEDS ORDERED: hydrOXYzine PAMOATE 25 MG CAPSULE (FP) PO PRN (15:39)
[2020-01-04] MEDS: ATORVASTATIN CA 40 MG TABLET (FP) PO SCH (22:56)
[2020-01-04] MEDS: MELATONIN 5 MG TABLETS PO SCH (22:57)
[2020-01-04] MEDS: THIAMINE HCL 100 MG TABLET (FP) PO SCH (22:57)
[2020-01-05] MEDS: LABETALOL HCL 100 MG, LABETALOL HCL 200 MG PO SCH ×3 (06:07→22:34)
[2020-01-05] MEDS: FUROSEMIDE 40 MG TABLET (FP) PO SCH ×2 (06:07→14:38)
[2020-01-05] MEDS: EMTRICITAB/RILPIVIRI/TENOF ALA (ODEFSEY) TABLET PO SCH (07:25)
[2020-01-05] MEDS: metFORMIN HCL 500 MG TABLET (FP) PO SCH (07:25)
[2020-01-05] MEDS ORDERED: METHADONE HCL 10 MG TABLET (FOR DETOX USE ONLY) ONE (09:56)
[2020-01-05] MEDS ORDERED: METHADONE HCL 5 MG TABLET (FOR DETOX USE ONLY) ONE (09:56)
[2020-01-05] MEDS ORDERED: CLOPIDOGREL BISULFATE 75 MG TABLET (FP) PO SCH (10:00)
[2020-01-05] MEDS ORDERED: METHADONE (DETOX) 20 MG, METHADONE (DETOX) 5 MG PO ONE (10:00)
--- NOTE | 2020-01-05 10:09 | EKG ---
Test Reason : Blood Pressure : / mmHG Vent. 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
[2020-01-05] MEDS: HYDROCHLOROTHIAZIDE 25 MG TABLET (FP) PO SCH (10:59)
[2020-01-05] MEDS: amLODIPine BESYLATE 10 MG TABLET (FP) PO SCH (10:59)
[2020-01-05] MEDS: PRENATAL VITAMINS W/ FOLIC ACID TABLET (FP) PO SCH (10:59)
[2020-01-05] MEDS: ASPIRIN 81 MG CHEWABLE TABLETS PO SCH (10:59)
[2020-01-05] MEDS: LISINOPRIL 20 MG TABLET PO SCH (10:59)
[2020-01-05] MEDS: NICOTINE 7 MG/24 HOURS TOPICAL PATCH TD SCH (11:00)
--- NOTE | 2020-01-05 11:46 | PN ---
S COWS - Scale Resting Pulse: 0= NM 80 or Below Sweatin= No chills or Flushing Restless Observation: 0= Sits Still Pupil Size: 1= Pupils >than Normal Bone or Joint Aches: 1= Mild Discomfort Runny Nose/ Eye Tearin= Runny Nose/Eyes GI Upset > 30mins: 2= Nausea/Diarrhea Tremor Observation of Outstretched Hands: 2= Slight Tremor Visible Yawning Observation: 1= 1-2x During Session Anxiety or Irritability: 2=Irritable/Anxious Goose Flesh Skin: 0=Smooth Skin COWS Score: 11 [facility] Progress Note (SOAP) Subjective: alert,irritable,anxious,interrupted sleep,pain in the body,extremities,aching pain Objective: 01/05/20 14:03 Vital Signs Temperature 98.6 F 01/05/20 09:15 Pulse Rate 54 L 01/05/20 09:15 Respiratory Rate 17 01/05/20 09:15 Blood Pressure 163/75 01/05/20 09:15 O2 Sat by Pulse Oximetry (%) 100 01/05/20 09:15 01/05/20 14:04 01/04/20 01/04/20 11:50 11:50 WBC 4.4 RBC 3.51 L Hgb 8.9 L Hct 28.2 L MCV 80.4 MCHC 31.7 L RDW 17.9 H Plt Count 209 D Sodium 137 Potassium 4.4 Chloride 102 Carbon Dioxide 29 Anion Gap 6 L BUN 35.2 H Creatinine 2.1 H Assessment: 01/05/20 14:04 withdrawal symptom Plan: continue detox methadone regimen,history of anemia,and sezure,seizure precaution,continue ferrous sulfate 325 mgs po bid,repeat cbc,cm,in am
[2020-01-05] MEDS: FERROUS SO4 325 MG TABLET (FP) PO SCH ×2 (15:23→22:33)
[2020-01-05] MEDS ORDERED: levETIRAcetam 250 MG TABLET PO ONE (21:36)
[2020-01-05] MEDS: ATORVASTATIN CA 40 MG TABLET (FP) PO SCH (22:33)
[2020-01-05] MEDS: THIAMINE HCL 100 MG TABLET (FP) PO SCH (22:33)
[2020-01-05] MEDS: MELATONIN 5 MG TABLETS PO SCH (22:34)
[2020-01-05] MEDS: levETIRAcetam 500 MG TABLET (FP) PO SCH (22:34)
[2020-01-06] MEDS: metFORMIN HCL 500 MG TABLET (FP) PO SCH (07:22)
[2020-01-06] MEDS: FUROSEMIDE 40 MG TABLET (FP) PO SCH ×2 (07:22→13:16)
[2020-01-06] MEDS: LABETALOL HCL 100 MG, LABETALOL HCL 200 MG PO SCH ×2 (07:22→13:16)
[2020-01-06] MEDS: EMTRICITAB/RILPIVIRI/TENOF ALA (ODEFSEY) TABLET PO SCH (07:23)
[2020-01-06] MEDS ORDERED: METHADONE HCL 10 MG TABLET (FOR DETOX USE ONLY) PO ONE (10:00)
[2020-01-06] MEDS: LISINOPRIL 20 MG TABLET PO SCH (11:01)
[2020-01-06] MEDS: FERROUS SO4 325 MG TABLET (FP) PO SCH (11:02)
[2020-01-06] MEDS: PRENATAL VITAMINS W/ FOLIC ACID TABLET (FP) PO SCH (11:02)
[2020-01-06] MEDS: HYDROCHLOROTHIAZIDE 25 MG TABLET (FP) PO SCH (11:02)
[2020-01-06] MEDS: ASPIRIN 81 MG CHEWABLE TABLETS PO SCH (11:02)
[2020-01-06] MEDS: NICOTINE 7 MG/24 HOURS TOPICAL PATCH TD SCH (11:02)
[2020-01-06] MEDS: amLODIPine BESYLATE 10 MG TABLET (FP) PO SCH (11:02)
[2020-01-06] MEDS: levETIRAcetam 500 MG TABLET (FP) PO SCH (11:02)
[2020-01-06 11:56] LABS: HEMATOCRIT 30.7 % (35.4-49); HEMOGLOBIN 9.9 GM/dL (11.7-16.9); MCH 25.7 pg (25.7-33.7); MCHC 32.3 g/dl (32.0-35.9); MEAN CELL VOLUME 79.5 fl (80-96); MEAN PLT VOLUME 8.7 fl (7.5-11.1); PLATELET COUNT 217 K/MM3 (134-434); RBC 3.86 M/mm3 (4.00-5.60); RDW 17.6 % (11.9-15.9)
[2020-01-06 12:03] LABS: BLOOD UREA NITROGEN 37.7 mg/dL (7-18); CALCIUM 9.5 mg/dL (8.5-10.1); CREATININE 2.1 mg/dL (0.55-1.3); POTASSIUM 4.2 mmol/L (3.5-5.1)
--- NOTE | 2020-01-06 12:58 | PN ---
[facility] COWS - Scale Resting Pulse: 0= [place] 80 or Below Sweatin= No chills or Flushing Restless Observation: 1= Difficult to Sit Still Pupil Size: 0= Normal to Room Light Bone or Joint Aches: 2= Severe Diffuse Aches Runny Nose/ Eye Tearin= None GI Upset > 30mins: 0= None Tremor Observation of Outstretched Hands: 2= Slight Tremor Visible Yawning Observation: 1= 1-2x During Session Anxiety or Irritability: 2=Irritable/Anxious Goose Flesh Skin: 0=Smooth Skin COWS Score: 8 [facility] Progress Note (SOAP) Subjective: Complaints of generalized weakness, chills, anxiety and body aches. Objective: 01/06/20 12:57 Vital Signs 01/06/20 01/06/20 06:07 08:55 Temperature 98 F 98.8 F Pulse Rate 52 L 58 L Respiratory 18 18 Rate Blood Pressure 135/67 137/77 O2 Sat by Pulse 98 Oximetry (%) Laboratory Last Values WBC 5.0 K/mm3 (4.0-10.0) 01/06/20 07:30 RBC 3.86 M/mm3 (4.00-5.60) L 01/06/20 07:30 Hgb 9.9 GM/dL (11.7-16.9) L 01/06/20 07:30 Hct 30.7 % (35.4-49) L 01/06/20 07:30 MCV 79.5 fl (80-96) L 01/06/20 07:30 MCH 25.7 pg (25.7-33.7) 01/06/20 07:30 MCHC 32.3 g/dl (32.0-35.9) 01/06/20 07:30 RDW 17.6 % (11.9-15.9) H 01/06/20 07:30 Plt Count 217 K/MM3 (134-434) 01/06/20 07:30 MPV 8.7 fl (7.5-11.1) 01/06/20 07:30 Sodium 134 mmol/L (136-145) L 01/06/20 07:30 Potassium 4.2 mmol/L (3.5-5.1) 01/06/20 07:30 Chloride 95 mmol/L (98-107) L 01/06/20 07:30 Carbon Dioxide 33 mmol/L (21-32) H 01/06/20 07:30 Anion Gap 6 MMOL/L (8-16) L 01/06/20 07:30 BUN 37.7 mg/dL (7-18) H 01/06/20 07:30 Creatinine 2.1 mg/dL (0.55-1.3) H 01/06/20 07:30 Est GFR (CKD-EPI)AfAm 41.00 01/06/20 07:30 Est GFR (CKD-EPI)NonAf 35.38 01/06/20 07:30 POC Glucometer 112 UNITS (80-120) 01/06/20 07:19 Random Glucose 99 mg/dL (74-106) 01/06/20 07:30 Calcium 9.5 mg/dL (8.5-10.1) 01/06/20 07:30 Total Bilirubin 0.5 mg/dL (0.2-1) 01/04/20 11:50 AST 7 U/L (15-37) L 01/04/20 11:50 ALT 9 U/L (13-61) L 01/04/20 11:50 Alkaline Phosphatase 130 U/L (45-117) H 01/04/20 11:50 Total Protein 8.6 g/dl (6.4-8.2) H 01/04/20 11:50 Albumin 3.6 g/dl (3.4-5.0) 01/04/20 11:50 Syphilis Serology Non-reactive (NONREACTIVE) 01/04/20 11:50 COVID-19 (TONO) Not detected (Not Detected) 01/04/20 14:00 Labs noted. with elevated Cr/BUN 01/06/20 13:42 Assessment: 01/06/20 12:57 Patient seen and examined, alert and oriented x3, in acute respiratory distress. Full ROM, ambulatory in the unit without assistance. Skin warm to touch without lesions. Mild withdrawal symptoms. Dehydration. 01/06/20 13:43 Plan: Continue detox protocol. Patient to be transferred to [facility] ER for evaluation of generalized body weakness and elevated BUN/Cr, verbal report given to Dr. Henry.
[2020-01-06 14:10] VITALS: BP 94/54; PULSE 70; TEMP 97.1
[2020-01-06] MEDS ORDERED: SODIUM CHLORIDE 1,000 ML IV STA (17:28)
[2020-01-06] MEDS ORDERED: SODIUM CHLORIDE 1,000 ML IV SCH (17:30)
[2020-01-06] MEDS ORDERED: INSULIN SLIDING SCALE (NOVOLOG) 1 VIAL SQ SCH (17:45)
[2020-01-06] MEDS ORDERED: HEPARIN NA (PORCINE) 5,000 UNITS/ML 1ML VIAL SQ SCH (18:00)
[2020-01-07] MEDS ORDERED: METHADONE (DETOX) 10 MG, METHADONE (DETOX) 5 MG PO ONE (10:00)
[2020-01-08] MEDS ORDERED: METHADONE HCL 10 MG TABLET (FOR DETOX USE ONLY) PO ONE (10:00)
[2020-01-09] MEDS ORDERED: METHADONE HCL 5 MG TABLET (FOR DETOX USE ONLY) PO ONE (06:00)
== END 2020-01-06 23:50 | disposition short-term general hospital (02) | DRG 773 ==
LOC: YASAS 10:38 → Y6N 12:39
PROVIDERS: ADMIT Allergy & Immunology; ATTEND Internal Medicine
PROC: HZ2ZZZZ Detoxification Services for Substance Abuse Treatment (ICD-10-PCS; principal; 2020-01-04)
DX: F11.23 Opioid dependence with withdrawal (principal); F17.210 Nicotine dependence, cigarettes, uncomplicated; Z21 Asymptomatic human immunodeficiency virus [HIV] infection status; D64.9 Anemia, unspecified; B18.2 Chronic viral hepatitis C; E86.0 Dehydration; J45.20 Mild intermittent asthma, uncomplicated; I25.10 Atherosclerotic heart disease of native coronary artery without angina pectoris; I10 Essential (primary) hypertension; Z95.5 Presence of coronary angioplasty implant and graft; E11.9 Type 2 diabetes mellitus without complications; Z79.84 Long term (current) use of oral hypoglycemic drugs; Z86.79 Personal history of other diseases of the circulatory system; Z98.890 Other specified postprocedural states; Z86.69 Personal history of other diseases of the nervous system and sense organs; Z86.73 Personal history of transient ischemic attack (TIA), and cerebral infarction without residual deficits; Z95.828 Presence of other vascular implants and grafts
CPT/HCPCS: 36415; 80048; 80053; 80177; 82962; 85027; 86780; 93005; 93010; C9803; U0003

== ENCOUNTER 2020-01-06 14:51 | Inpatient (IN) | payer OTHER ==
--- OUTSIDE RECORDS SUMMARY | 2020-01-06 15:03 | XMS ---
:1970 Author Organization [facility] Support Name Relationship Address Phone UE Unavailable Unavailable Unavailable UE Unavailable Unavailable Unavailable BYAM [address] [phone] [place] [address] BYAM Spouse [address] [place] [address] Re-disclosure Warning The records that you are [...] is protected by Article 27-F of the [facility] Public Health law. If you continue you may haveaccess to information: Regarding HIV / AIDS; Provided by facilities licensed or operated by the [facility] Office of Mental Health; or Provided by the [facility] Office for People With Developmental Disabilities. If such information is present, then the following [facility] mandated warning applies: This information has been [...] law may result in a fine or custodial sentence or both. A general authorization for the release of medical or other information is NOT sufficient authorization for further disclosure. Insurance Providers Payer name Policy type Policy ID Covered Covered green party's Policy P joanie / Coverage green party ID relationship to [facility] ormation type willis TANNER [id number] SP [id number] 300 HEALTH NON CAP [place] [id number] SP [id number] [place] Results ID Date Data Source [id number] 11/19/2019 07:53:00 AM EDT [facility] Name Value Range Interpretation Code Description Data Marium rce(s) Supporting Document(s ) SARS-CoV-2 [facility] RNA Resp [facility] Ql TONO+probe This lab was ordered by [facility] a nd reported by [facility]. ID Date Data Source [id number] 11/15/2019 08:20:00 AM EDT [facility] Name Value Range Interpretation Code Description Data Marium rce(s) Supporting Document(s ) SARS-CoV-2 [facility] RNA [facility] Ql TONO+probe This lab was ordered by [facility] a nd reported by [facility]. ID Date Data Source [id number] 11/06/2019 04:38:00 PM EDT [facility] Name Value Range Interpretation Code Description Data Marium rce(s) Supporting Document(s ) SARS-CoV-2 [facility] RNA [facility] Ql TONO+probe This lab was ordered by [facility] a nd reported by [facility]. ID Date Data Source [id number] 10/31/2019 01:08:00 PM EDT [facility] Name Value Range Interpretation Code Description Data Marium rce(s) Supporting Document(s ) SARS-CoV-2 [facility] RNA [facility] Ql TONO+probe This lab was ordered by [facility] a nd reported by [facility]. ID Date Data Source [id number] 10/25/2019 10:53:00 PM EDT [facility] Name Value Range Interpretation Code Description Data Marium rce(s) Supporting Document(s ) SARS-CoV-2 [facility] RNA [facility] Ql TONO+probe This lab was ordered by [facility] a nd reported by [facility]. ID Date Data Source [id number] 10/20/2019 12:35:00 PM EDT [facility] Name Value Range Interpretation Description Data Sup porting Code Source(s) Document(s ) SARS [facility] coronavirus 2 RNA This lab was ordered by [facility] Ac ct Jesse Santamaria and reported by [facility]. ID Date Data Source [id number] 10/06/2019 05:06:00 AM EDT [facility] Name Value Range Interpretation Code Description Data Marium rce(s) Supporting Document(s ) SARS-CoV-2 [facility] Ql TONO+probe This lab was ordered by [facility] a nd reported by [facility]. ID Date Data Source [id number] 09/27/2019 12:33:00 AM EDT [facility] Name Value Range Interpretation Code Description Data Marium rce(s) Supporting Document(s ) [facility] Q[facility] TONO+probe This lab was ordered by [facility] a nd reported by [facility]. ID Date Data Source [id number] 09/09/2019 11:00:00 AM EDT [facility] Name Value Range Interpretation Code Description Data Marium rce(s) Supporting Document(s ) SARS-CoV-2 [facility] Ql TONO+probe This lab was ordered by [facility] a nd reported by [facility]. ID Date Data Source [id number] 08/12/2019 06:33:00 PM EDT [facility] Name Value Range Interpretation Code Description Data Marium rce(s) Supporting Document(s ) SARS-CoV-2 [facility] Ql TONO+probe This lab was ordered by [facility] a nd reported by [facility]. ID Date Data Source [id number] 06/15/2019 11:29:00 AM EDT [facility] Name Value Range Interpretation Code Description Data Marium rce(s) Supporting Document(s ) SARS-CoV-2 [facility] RNA XXX Ql [facility] TONO+probe This lab was ordered by [facility] a nd reported by [facility]. Procedure
--- NOTE | 2020-01-06 15:18 | PDOC ---
History of Present Illness - General Chief Complaint: Abnormal Lab Results (Outside) Stated Complaint: ABNORMAL LABS Time Seen by Provider: 01/06/20 15:18 History Source: Patient Exam Limitations: No Limitations - History of Present Illness Initial Comments: 01/06/20 15:34 49 y.o. 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 Patient states he was on day 3 of his detox and states he has been detoxing from heroin use consists of 1 bag per day. Patient states he has been taking his lisinopril and metformin as prescribed. Patient reports no headache, chills, fever, chest pain, sob, N/V/D, discolored urine, pain or burning upon voiding. PCP: Dr. Aaron Specialist: Dr. Douglas at [facility] (Repaired AAA) PMHx: HTN, DM, heroin abuse, Hep C, HIV aortic dissection Meds: In Chart Allergies: Enoxaparin 01/06/20 16:14 Is this a multiple visit Asthma Patient?: No Timing/Duration: unsure Severity: moderate Past History - Medical History Allergies/Adverse Reactions: Allergies Allergy/AdvReac Type Severity Reaction Status Date / Time enoxaparin sodium Allergy Severe Rash Verified 01/04/20 12:12 [From Lovenox] Home Medications: Ambulatory Orders Amlodipine Besylate 10 mg PO DAILY 10/23/18 Aspirin 81 mg PO DAILY 10/23/18 Albuterol Sulfate Inhaler - [Ventolin HFA Inhaler -] 2 inh PO Q4H PRN #1 inhaler 01/03/19 Emtricitab/Rilpiviri/Tenof Ala [Odefsey Tablet] 1 each PO DAILY #30 tablet 01/03/19 Ferrous Sulfate [Feosol] 325 mg PO BID 7 Days #14 tablet 01/03/19 Hydrochlorothiazide [Hctz -] 25 mg PO DAILY #30 tablet 01/03/19 Levetiracetam 500 mg PO BID #60 tablet 01/03/19 Lisinopril [Prinivil] 40 mg PO DAILY #30 tablet 01/03/19 metFORMIN HCL [Glucophage -] 500 mg PO DAILY #30 tablet 01/03/19 Atorvastatin Ca [Lipitor] 40 mg PO HS 10/20/19 Clopidogrel Bisulfate [Plavix] 75 mg PO DAILY 10/20/19 Furosemide [Lasix] 40 mg PO BID 10/20/19 Hydralazine HCl 100 mg PO DAILY 10/20/19 Labetalol HCl 300 mg PO TID 10/20/19 Multivitamin 1 each PO DAILY 10/20/19 Anemia: No Asthma: Yes Cancer: No Cardiac Disorders: Yes (2009- STENT PLACEMENT) CVA: No COPD: No CHF: No Dementia: No Diabetes: Yes (ON MEDS) GI Disorders: No Disorders: No HTN: Yes (ON MEDS) Hypercholesterolemia: No Kidney Stones: No Liver Disease: No Seizures: Yes (1 YRS AGO) Thyroid Disease: No - Surgical History Abdominal Surgery: No Appendectomy: No Cardiac Surgery: Yes (Cardiac cath stent in 2009) Cholecystectomy: No Lung Surgery: No Neurologic Surgery: No Orthopedic Surgery: No - Reproductive History Testicular Surgery: No - Psycho-Social/Smoking History Smoking History: Current every day smoker Have you smoked in the past 12 months: Yes Number of Cigarettes Smoked Daily: 3 Cigars Per Day: 0 Information on smoking cessation initiated: Yes 'Breaking Loose' booklet given: 01/04/20 - Substance Abuse Hx (Audit-C & DAST Scrn) How often the patient has a drink containing alcohol: Never Score: In Men: 4 or > Positive; In Women: 3 or > Positive: 0 Screen Result (Pos requires Nsg. Audit-10AR): Negative In the last yr the pt used illegal drug/Rx for NonMed reason: Yes Score: Yes response is considered Positive: 1 Screen Result (Positive result requires Nsg. DAST-10): Positive Review of Systems - Review of Systems Able to Perform ROS?: Yes Is the patient limited Latvian proficient: No Constitutional: No: Chills, Fever HEENTM: No: Blurred Vision, Double Vision Respiratory: No: Cough, Shortness of Breath Cardiac (ROS): No: Chest Pain, Lightheadedness ABD/GI: No: Constipated, Diarrhea, Nausea, Vomiting : No: Burning, Dysuria Musculoskeletal: No: Back Pain, Muscle Weakness Integumentary: No: Bruising, Erythema Neurological: No: Headache, Numbness, Tingling, Dizziness Hematologic/Lymphatic: No: Easy Bleeding, Easy Bruising *Physical Exam - Vital Signs Last Vital Signs Temp Pulse Resp BP Pulse Ox 97.8 F 57 L 20 132/78 100 10/10/20 14:55 01/06/20 14:55 01/06/20 14:55 01/06/20 14:55 01/06/20 14:55 - Physical Exam General Appearance: Yes: Nourished, Appropriately Dressed. No: Apparent Distress Respiratory/Chest: positive: Lungs Clear, Normal Breath Sounds. negative: Chest Tender, Accessory Muscle Use, Crackles, Rales, Rhonchi, Stridor, Wheezing Cardiovascular: positive: Regular Rhythm, Regular Rate. negative: Edema, JVD, Murmur Extremity: positive: Normal Inspection, Normal Range of Motion. negative: Tender, Swelling, Calf Tenderness, Erythema Integumentary: positive: Normal Color, Dry, Warm Neurologic: positive: Fully Oriented, Alert, Normal Mood/Affect, Normal Response ED Treatment Course - LABORATORY CBC & Chemistry Diagram: 01/07/20 07:14 01/07/20 07:14 Medical Decision Making - Medical Decision Making 01/06/20 15:44 49 y.o. M PMHx of HTN, DM, heroin abuse, Hep C, HIV, aortic dissection 09/2019 [facility] due [facility] Cr values. - Cr values have been trending up for the past month. DDx: Nephrotoxic drug use, Nephrotic vs nephritic syndrome (FSGS) Labs: Na 134, K 4.2, Cr 2.1, BUN 37.7 CXR: No acute chest pathology Dispo: Admission 01/06/20 16:05 Discharge - Discharge Information Problems reviewed: Yes Clinical Impression/Diagnosis: Acute kidney injury superimposed on CKD Condition: Stable Disposition: HOME - Admission Yes - Follow up/Referral - Patient Discharge Instructions - Post Discharge Activity
--- NOTE | 2020-01-06 16:11 | PDOC ---
Documentation entered by Zaira Ventura SCRIBE, acting as scribe for Luz Maria Dewitt MD. Luz Maria Dewitt MD: This documentation has been prepared by the scribe, Zaira Frias SCRIBE, under my direction and personally reviewed by me in its entirety. I confirm that the documentation accurately reflects all work, treatment, procedures, and medical decision making performed by me. Attending Attestation - Resident Resident Name: Herbert Wood - ED Attending Attestation I have performed the following: I have examined & evaluated the patient, The case was reviewed & discussed with the resident, I agree w/resident's findings & plan, Exceptions are as noted - HPI HPI: 01/06/20 16:05 The patient is a 49 year old male with a significant PMH of DM, HTN, Hep C, HIVE aortic dissection (09/2019) and heroin abuse who presents to the emergency department [facility] from [facility] for evaluation of elevated Cr levels. Patient notes that prior to [facility] admission, he did 2 bag of heroin per day and is now on day 3 of detox. Endorses complaince with medications. The patient denies chest pain, shortness of breath, headache and dizziness. Denies fever, chills, nausea, vomiting, diarrhea and constipation. Denies dysuria, frequency, urgency and hematuria. Allergies: Per EMR Social history: Heroin use - Physicial Exam PE: GENERAL: Awake, alert, and fully oriented, in no acute distress HEAD: No signs of trauma EYES: PERRLA, EOMI, sclera anicteric, conjunctiva clear ENT: Auricles normal inspection, hearing grossly normal, nares patent, oropharynx clear without exudates. Moist mucosa NECK: Normal ROM, supple, no lymphadenopathy, JVD, or masses LUNGS: Breath sounds equal, clear to auscultation bilaterally. No wheezes, and no crackles HEART: Regular rate and rhythm, normal S1 and S2, no murmurs, rubs or gallops ABDOMEN: Soft, nontender, normoactive bowel sounds. No guarding, no rebound. No masses EXTREMITIES: Normal range of motion, no edema. No clubbing or cyanosis. No cords, erythema, or tenderness NEUROLOGICAL: Cranial nerves II through XII grossly intact. Normal speech, normal gait. Motor and sensation intact SKIN: Warm, dry, normal turgor. Multiple scars to forearms. - Medical Decision Making Pt with acute kidney injury. Will send labs, urine, and consult with renal. Admit. Discharge - Discharge Information Problems reviewed: Yes Clinical Impression/Diagnosis: Acute kidney injury superimposed on CKD Condition: Stable Disposition: HOME - Follow up/Referral Referrals: ON STAFF,NOT [Primary Care Provider] - - Patient Discharge Instructions - Post Discharge Activity
[2020-01-06] MEDS ORDERED: LACTATED RINGERS SOLUTION 1000 ML INFUS.BAG IV ONE (16:49)
--- NOTE | 2020-01-06 16:56 | CON.NEP ---
Consult Consult Specialty:: Nephrology Referred by:: ED Reason for Consultation:: Acute kidney injury - History of Present Illness Chief Complaint: Abnormal renal function History of Present Illness: This is a 49 year old male with history of HIV, Hepatitis C, Heroin abuse, recent aortic dissection s/p repair, hypertension, and DM who presented from [facility] with a serum Cr of 2.1. Seen and examined at the bedside. He denies any shortness of breath, chest pain, abdominal pain, N/V/D. Last time he used Heroin was 5 days ago. Denies any flank pain. No hematuria. Denies any NSAID use. No recent contrast exposure. 49 y.o. M PMHx of HTN, DM, heroin abuse, Hep C, HIV aortic dissection 09/2019 presenting from [facility] due to elevated Cr values. - History Source History Provided By: Patient Limitations to Obtaining History: No Limitations - Alcohol/Substance Use Hx Alcohol Use: No - Smoking History Smoking history: Current every day smoker Have you smoked in the past 12 months: Yes Aproximately how many cigarettes per day: 3 Home Medications - Allergies Allergies/Adverse Reactions: Allergies Allergy/AdvReac Type Severity Reaction Status Date / Time enoxaparin sodium Allergy Severe Rash Verified 01/04/20 12:12 [From Lovenox] - Home Medications Home Medications: Ambulatory Orders Amlodipine Besylate 10 mg PO DAILY 10/23/18 Aspirin 81 mg PO DAILY 10/23/18 Albuterol Sulfate Inhaler - [Ventolin HFA Inhaler -] 2 inh PO Q4H PRN #1 inhaler 01/03/19 Emtricitab/Rilpiviri/Tenof Ala [Odefsey Tablet] 1 each PO DAILY #30 tablet 01/03/19 Ferrous Sulfate [Feosol] 325 mg PO BID 7 Days #14 tablet 01/03/19 Hydrochlorothiazide [Hctz -] 25 mg PO DAILY #30 tablet 01/03/19 Levetiracetam 500 mg PO BID #60 tablet 01/03/19 Lisinopril [Prinivil] 40 mg PO DAILY #30 tablet 01/03/19 metFORMIN HCL [Glucophage -] 500 mg PO DAILY #30 tablet 01/03/19 Atorvastatin Ca [Lipitor] 40 mg PO HS 10/20/19 Clopidogrel Bisulfate [Plavix] 75 mg PO DAILY 10/20/19 Furosemide [Lasix] 40 mg PO BID 10/20/19 Hydralazine HCl 100 mg PO DAILY 10/20/19 Labetalol HCl 300 mg PO TID 10/20/19 Multivitamin 1 each PO DAILY 10/20/19 Family Medical History Family History: Unremarkable Review of Systems - Review of Systems Constitutional: reports: No Symptoms Eyes: reports: No Symptoms HENT: reports: No Symptoms Neck: reports: No Symptoms Cardiovascular: reports: No Symptoms Respiratory: reports: No Symptoms Gastrointestinal: reports: No Symptoms Genitourinary: reports: No Symptoms Musculoskeletal: reports: No Symptoms Integumentary: reports: No Symptoms Neurological: reports: No Symptoms Nephrology Consult - Height Height: 5 ft 9 in - Weight Weight: 77.111 kg - BMI Body Mass Index (BMI): 25.1 - Physical Examination Vital Signs: Vital Signs Temperature 97.8 F 01/06/20 14:55 Pulse Rate 57 L 01/06/20 14:55 Respiratory Rate 20 01/06/20 14:55 Blood Pressure 132/78 01/06/20 14:55 O2 Sat by Pulse Oximetry (%) 100 01/06/20 14:55 Constitutional: Yes: No Distress, Calm Eyes: Yes: Conjunctiva Clear HENT: Yes: Atraumatic Neck: Yes: Supple Cardiovascular: Yes: Regular Rate and Rhythm Respiratory: Yes: Regular, CTA Bilaterally Gastrointestinal: Yes: Soft. No: Tenderness Renal/: No: Bladder Distention, CVA Tenderness - Left, CVA Tenderness - Right Edema: No Neurological: Yes: Alert, Oriented Assessment/Plan 49 y.o. M PMHx of HTN, DM, heroin abuse, Hep C, HIV aortic dissection 09/2019 presenting from [facility] due to elevated Cr values. 1. Acute kidney injury 2. Heroin use/Rehab 3. Recent aortic dissection 4. Hypertension 5. Hep C/HV Differential for CALLUM: Volume depletion/hemodynamic injury (Diuretics/MARY) vs. ischemic/embolic kidney injury following aortic dissection repair vs. GN/RPGN vs. obstruction vs. pigment injury Check CMP, CBC, CPK, LDH, UA, Urine protein to creatinine ratio, FeUrea, FeNa, Renal US follow up CT of Abd/Pelvis to access for patency of renal arteries Hold MARY/Diuretics/Metformin Avoid IV Contrast and NSAIDs if possible Will follow up labs no acute need for renal replacement therapy based on labs from rehab BP control with CCB/BB Trial OF isotonic fluids x 24 hours. Thank you Will follow up Uziel Pantoja DO
--- OUTSIDE RECORDS SUMMARY | 2020-01-06 17:49 | XMS ---
:1970 Author Organization [facility] Support Name Relationship Address Phone UE, UNEMPLOYED Unavailable Unavailable Unavailable UE Unavailable Unavailable Unavailable OMAR RIVERA [address] [place] [address] OMAR RIVERA Spouse [email or web address] [place] [address] Re-disclosure Warning The records that you are [...] is protected by Article 27-F of the [facility] Public Health law. If you continue you may haveaccess to information: Regarding HIV / AIDS; Provided by facilities licensed or operated by the [facility] Office of Mental Health; or Provided by the [facility] Office for People With Developmental Disabilities. If such information is present, then the following [facility] mandated warning applies: This information has [...] law may result in a fine or half-way sentence or both. A general authorization for the release of medical or other information is NOT sufficient authorization for further disclosure. Insurance Providers Payer name Policy type Policy ID Covered Covered libertarian's Policy P joanie / Coverage libertarian ID relationship to [facility] type willis TANNER [id number] SP [id number] 300 HEALTH NON CAP [place] [id number] SP [id number] [employer] Results ID Date Data Source [id number] 11/19/2019 07:53:00 AM EDT [facility] Name Value Range Interpretation Code Description Data Marium rce(s) Supporting Document(s ) SARS-CoV-2 [facility] Ql TONO+probe This lab was ordered by [facility] a nd reported by [facility]. ID Date Data Source [id number] 11/15/2019 08:20:00 AM EDT [facility] Name Value Range Interpretation Code Description Data Marium rce(s) Supporting Document(s ) SARS-CoV-2 [facility] Ql TONO+probe This lab was ordered by [facility] a nd reported by [facility]. ID Date Data Source [id number] 11/06/2019 04:38:00 PM EDT [facility] Name Value Range Interpretation Code Description Data Marium rce(s) Supporting Document(s ) SARS-CoV-2 [facility] Ql TONO+probe This lab was ordered by [facility] a nd reported by [facility]. ID Date Data Source [id number] 10/31/2019 01:08:00 PM EDT [facility] Name Value Range Interpretation Code Description Data Marium rce(s) Supporting Document(s ) SARS-CoV-2 [facility] Ql TONO+probe This lab was ordered by [facility] a nd reported by [facility]. ID Date Data Source [id number] 10/25/2019 10:53:00 PM EDT [facility] Name Value Range Interpretation Code Description Data Marium rce(s) Supporting Document(s ) SARS-CoV-2 [facility] Ql TONO+probe This lab was ordered by [facility] a nd reported by [facility]. ID Date Data Source [id number] 10/20/2019 12:35:00 PM EDT [facility] Name Value Range Interpretation Description Data Sup porting Code Source(s) Document(s ) SARS [facility] coronavirus 2 RNA This lab was ordered by [facility] Ac [facility] and reported by [facility]. ID Date Data Source [id number] 10/06/2019 05:06:00 AM EDT [facility] Name Value Range Interpretation Code Description Data Marium rce(s) Supporting Document(s ) SARS-CoV-2 [facility] Ql TONO+probe This lab was ordered by [facility] a nd reported by [facility]. ID Date Data Source [id number] 09/27/2019 12:33:00 AM EDT [facility] Name Value Range Interpretation Code Description Data Marium rce(s) Supporting Document(s ) SARS-CoV-2 [facility] Ql TONO+probe This lab was ordered by [facility] a nd reported by [facility]. ID Date Data Source [id number] 09/09/2019 11:00:00 AM EDT [facility] Name Value Range Interpretation Code Description Data Marium rce(s) Supporting Document(s ) SARS-CoV-2 [facility] Ql TONO+probe This lab was ordered by [facility] a nd reported by [facility]. ID Date Data Source [id number] 08/12/2019 06:33:00 PM EDT [facility] Name Value Range Interpretation Code Description Data Marium rce(s) Supporting Document(s ) SARS-CoV-2 [facility] Ql TONO+probe This lab was ordered by [facility] a nd reported by [facility]. ID Date Data Source [id number] 06/15/2019 11:29:00 AM EDT [facility] Name Value Range Interpretation Code Description Data Marium rce(s) Supporting Document(s ) SARS-CoV-2 [facility] RNA XXX Ql [facility] TONO+probe This lab was ordered by [facility] a nd reported by [facility]. Procedure
[2020-01-06] MEDS ORDERED: ALBUTEROL SO4 HFA INHALER IH PRN (17:59)
--- NOTE | 2020-01-06 17:59 | HP ---
CHIEF COMPLAINT: CALLUM presenting from [facility] PCP: HISTORY OF PRESENT ILLNESS: Pt is a 49 year old male with PMHx of HTN, HLD, DM, AAA dissection repair, CAD s/p stents, CVA in 2019, asthma presenting from [facility] where he is being treated for heroin detoxification with methadone, with today being the 3rd day. Pt was being seen there where he had developed an CALLUM, Cr 2.1 (baseline 1.1), so he was sent to [facility]. Pt states his withdrawal has been manageable and has not been overwhelmed. Pt states he does not drink a lot of water, and he understands this can be harmful to him. Pt states he does not have any fever, chills, SOB, chest pain, dysuria, nausea/vomiting, diarrhea/constipation. ER course was notable for: (1) 1L LR (2) Ab/pelvis CT, renal US pending (3) Recent Travel: Denies PAST MEDICAL HISTORY: As stated in HPI PAST SURGICAL HISTORY: Social History: Smokin-3 cigs/day Alcohol: denies Drugs: Heroin Allergies enoxaparin sodium [From Lovenox] Allergy (Severe, Verified 01/04/20 12:12) Rash HOME MEDICATIONS: Home Medications Medication Instructions Recorded Amlodipine Besylate 10 mg PO DAILY 10/23/18 Aspirin 81 mg PO DAILY 10/23/18 Albuterol Sulfate Inhaler - 2 inh PO Q4H PRN #1 inhaler 01/03/19 [Ventolin HFA Inhaler -] Emtricitab/Rilpiviri/Tenof Ala 1 each PO DAILY #30 tablet 01/03/19 [Odefsey Tablet] Ferrous Sulfate [Feosol] 325 mg PO BID 7 Days #14 tablet 01/03/19 Hydrochlorothiazide [Hctz -] 25 mg PO DAILY #30 tablet 01/03/19 Levetiracetam 500 mg PO BID #60 tablet 01/03/19 Lisinopril [Prinivil] 40 mg PO DAILY #30 tablet 01/03/19 metFORMIN HCL [Glucophage -] 500 mg PO DAILY #30 tablet 01/03/19 Atorvastatin Ca [Lipitor] 40 mg PO HS 10/20/19 Clopidogrel Bisulfate [Plavix] 75 mg PO DAILY 10/20/19 Furosemide [Lasix] 40 mg PO BID 10/20/19 Hydralazine HCl 100 mg PO DAILY 10/20/19 Labetalol HCl 300 mg PO TID 10/20/19 Multivitamin 1 each PO DAILY 10/20/19 REVIEW OF SYSTEMS CONSTITUTIONAL: Absent: fever, chills, diaphoresis, generalized weakness, malaise, loss of appetite, weight change HEENT: Absent: rhinorrhea, nasal congestion, throat pain, throat swelling, difficulty swallowing, mouth swelling, ear pain, eye pain, visual changes CARDIOVASCULAR: Absent: chest pain, syncope, palpitations, irregular heart rate, lightheadedness, peripheral edema RESPIRATORY: Absent: cough, shortness of breath, dyspnea with exertion, orthopnea, wheezing, stridor, hemoptysis GASTROINTESTINAL: Absent: abdominal pain, abdominal distension, nausea, vomiting, diarrhea, constipation, melena, hematochezia GENITOURINARY: Absent: dysuria, frequency, urgency, hesitancy, hematuria, flank pain, genital pain MUSCULOSKELETAL: Absent: myalgia, arthralgia, joint swelling, back pain, neck pain SKIN: Absent: rash, itching, pallor HEMATOLOGIC/IMMUNOLOGIC: Absent: easy bleeding, easy bruising, lymphadenopathy, frequent infections ENDOCRINE: Absent: unexplained weight gain, unexplained weight loss, heat intolerance, cold intolerance NEUROLOGIC: Absent: headache, focal weakness or paresthesias, dizziness, unsteady gait, seizure, mental status changes, bladder or bowel incontinence PSYCHIATRIC: Absent: anxiety, depression, suicidal or homicidal ideation, hallucinations. PHYSICAL EXAMINATION Vital Signs - 24 hr 01/06/20 01/06/20 14:53 14:55 Temperature 97.8 F Pulse Rate 57 L Respiratory 20 Rate Blood Pressure 132/78 O2 Sat by Pulse 99 100 Oximetry (%) GENERAL: Awake, alert, and fully oriented, in no acute distress. HEAD: Normal with no signs of trauma. EYES: Pupils equal, round and reactive to light, extraocular movements intact, sclera anicteric, conjunctiva clear. No lid lag. EARS, NOSE, THROAT: Ears normal, nares patent, oropharynx clear without exudates. Moist mucous membranes. NECK: Normal range of motion, supple without lymphadenopathy, JVD, or masses. LUNGS: Breath sounds equal, clear to auscultation bilaterally. No wheezes, and no crackles. No accessory muscle use. HEART: Regular rate and rhythm, normal S1 and S2 without murmur, rub or gallop. ABDOMEN: Soft, nontender, not distended, normoactive bowel sounds, no guarding, no rebound, no masses. No hepatomegaly or splenomegaly. MUSCULOSKELETAL: Normal range of motion at all joints. No bony deformities or tenderness. No CVA tenderness. UPPER EXTREMITIES: 2+ pulses, warm, well-perfused. No cyanosis. No clubbing. No peripheral edema. LOWER EXTREMITIES: 2+ pulses, warm, well-perfused. No calf tenderness. No peripheral edema. NEUROLOGICAL: Cranial nerves II-XII intact. Normal speech. Normal gait. PSYCHIATRIC: Cooperative. Good eye contact. Appropriate mood and affect. SKIN: Warm, dry, normal turgor, no rashes or lesions noted, normal capillary refill. ASSESSMENT/PLAN: Pt is a 49 year old male with PMHx of HTN, HLD, DM, AAA dissection repair, CAD s/p stents, CVA in 2019, asthma presenting from [facility] where he is being treated for heroin detoxification with methadone admitted for CALLUM. #CALLUM on CKD -Cr 2.1, baseline 1.1 -1L LR fluid bolus given; NS 100cc/hr continuous fluids -Renal u/s ordered -UA, Ulytes, Uurea, Upr:cr -hold home HCTZ, Lasix, Lisinopril, metformin, and avoid other nephrotoxic medications -Consulted renal (Dr. Pantoja) #Heroin detox, on methadone -on day 3 of detox with methadone -continue -COWS 3, continue to monitor #Hx HTN -hold Lasix, HCTZ, lisinopril due to CALLUM -hold labetalol and amlodipine due to documented BP 94/54; continue when clinically appropriate #HIV -on HAART therapy, confirm with pt if taking daily then resume -if skipping doses, giving daily can cause resistance #Hx CAD -cont ASA, plavix -cont lipitor #Hx asthma -cont albuterol PRN PPx Heparin 5000 u TID FEN NS 100 cc/hr Monitor lytes Diabetic/sodium controlled diet Dispo Admit to med surg. LR 1L bolus, NS 100cc/hr. Renal US, abdomen pelvis CT, Ustudies pending. Consulted renal ATTENDING PHYSICIAN STATEMENT I saw and evaluated the patient. I reviewed the resident's note and discussed the case with the resident. I agree with the resident's findings and plan as documented. SUBJECTIVE: OBJECTIVE: ASSESSMENT AND PLAN:
[2020-01-06] MEDS ORDERED: HEPARIN NA (PORCINE) 5,000 UNITS/ML 1ML VIAL SQ SCH (18:00)
[2020-01-06] MEDS: SODIUM CHLORIDE 1,000 ML IV SCH (18:37)
[2020-01-06] MEDS ORDERED: ATORVASTATIN CA 40 MG TABLET (FP) ONE (21:31)
[2020-01-06] MEDS ORDERED: levETIRAcetam 500 MG TABLET (FP) PO ONE (21:31)
[2020-01-06] MEDS: ATORVASTATIN CA 40 MG TABLET (FP) PO SCH (21:36)
[2020-01-06] MEDS: levETIRAcetam 500 MG TABLET (FP) PO SCH (21:40)
--- NOTE | 2020-01-06 21:55 | PN ---
Teaching Attending Note Name of Resident: Kristyn Dawkins ATTENDING PHYSICIAN STATEMENT I saw and evaluated the patient. I reviewed the resident's note and discussed the case with the resident. I agree with the resident's findings and plan as documented. SUBJECTIVE: 49 yo m w/ PMH HTN, HLD, DM, AAA dissection repair, CAD s/p stents, CVA in 2019, asthma who came from [facility] for elevated creatinine. Pt was on day 3 of methadone detox. pt was found to have an CALLUM Cr 2.1 (baseline 1.1) and was sent to [facility] for eval. see resident note for further details OBJECTIVE: Vital Signs Temperature 97.8 F 01/06/20 14:55 Pulse Rate 57 L 01/06/20 19:51 Respiratory Rate 18 01/06/20 19:51 Blood Pressure 122/54 L 01/06/20 19:51 O2 Sat by Pulse Oximetry (%) 100 01/06/20 20:02 CBC,CMP LD Total 367 U/L (87-246) H 01/06/20 18:34 PE: GENERAL: Awake, alert, and fully oriented, in no acute distress. LUNGS: Breath sounds equal, clear to auscultation bilaterally. No wheezes, and no crackles. No accessory muscle use. HEART: Regular rate and rhythm, normal S1 and S2 without murmur, rub or gallop. ABDOMEN: Soft, nontender, not distended, normoactive bowel sounds. LOWER EXTREMITIES: 2+ pulses, warm, well-perfused. No calf tenderness. No peripheral edema. SKIN: Warm, dry, normal turgor, no rashes or lesions noted, normal capillary refill. ASSESSMENT AND PLAN: Pt is a 49 year old male with PMHx of HTN, HLD, DM, AAA dissection repair, CAD s/p stents, CVA in 2019, asthma presenting from [facility] where he is being treated for heroin detoxification with methadone admitted for ACLLUM. #CALLUM on CKD #Heroin detox, on methadone #Hx HTN #HIV #Hx CAD #Hx asthma -renal consult -s/p 1L LR bolus in ED -hold home BP meds -UA, urine lytes, urine creatinine -renal/bladder US -c/w methadone detox -ISS, BGM -c/w asa, plavix -albuterol PRN
[2020-01-06 22:03] LABS: PH,URINE 5.5 (5.0-8.0); URINE APPEARANCE CLEAR; URINE BILIRUBIN NEGATIVE (NEGATIVE); URINE COLOR YELLOW; URINE GLUCOSE (UA) NEGATIVE (NEGATIVE); URINE KETONE NEGATIVE (NEGATIVE); URINE LEUK ESTERASE NEGATIVE (NEGATIVE); URINE NITRITE NEGATIVE (NEGATIVE); URINE PROTEIN NEGATIVE (NEGATIVE); URINE UROBILINOGEN 0.2 mg/dL (0.2-1.0)
[2020-01-07 01:07] VITALS: BMI 23.8
[2020-01-07] MEDS: SODIUM CHLORIDE 1,000 ML IV SCH ×2 (06:29→15:55)
[2020-01-07 08:04] LABS: BASO % 1.1 % (0-2.0); EOS % 7.8 % (0-4.5); HEMOGLOBIN 9.7 GM/dL (11.7-16.9); LYMPH % 22.3 % (8-40); MCH 25.2 pg (25.7-33.7); MCHC 32.3 g/dl (32.0-35.9); MEAN CELL VOLUME 78.1 fl (80-96); MEAN PLT VOLUME 7.9 fl (7.5-11.1); MONO % 11.1 % (3.8-10.2); NEUT % 57.7 % (42.8-82.8); PLATELET COUNT 203 K/MM3 (134-434); RBC 3.84 M/mm3 (4.00-5.60); WHITE BLOOD COUNT 4.7 K/mm3 (4.0-10.0)
[2020-01-07 08:37] LABS: ALBUMIN 3.3 g/dl (3.4-5.0); BLOOD UREA NITROGEN 35.9 mg/dL (7-18); CREATININE 2.2 mg/dL (0.55-1.3); MAGNESIUM 1.9 mg/dL (1.8-2.4); PHOSPHOROUS 3.6 mg/dL (2.5-4.9); POTASSIUM 4.2 mmol/L (3.5-5.1)
[2020-01-07 08:39] LABS: BILIRUBIN,TOTAL 0.8 mg/dL (0.2-1)
[2020-01-07] MEDS ORDERED: METHADONE 10 MG, METHADONE 5 MG PO ONE (09:00)
[2020-01-07] MEDS ORDERED: METHADONE HCL 10 MG TABLET ONE (09:35)
[2020-01-07] MEDS ORDERED: METHADONE HCL 5 MG TABLET ONE (09:36)
[2020-01-07] MEDS: CLOPIDOGREL BISULFATE 75 MG TABLET (FP) PO SCH (09:42)
[2020-01-07] MEDS: FERROUS SO4 325 MG TABLET (FP) PO SCH ×2 (09:43→17:07)
[2020-01-07] MEDS: MULTIVITAMINS (DAILY MVI) TABLET (FP) PO SCH (09:43)
[2020-01-07] MEDS: ASPIRIN 81 MG CHEWABLE TABLETS PO SCH (09:47)
[2020-01-07] MEDS: levETIRAcetam 500 MG TABLET (FP) PO SCH (09:47)
--- NOTE | 2020-01-07 10:31 | PN ---
Progress Note (short form) - Note Progress Note: S: No acute events. Pt without complaints. Patient reports he was at [facility] for opiate detox (snorts heroin) when they found he had an increasing Cr on bloodwork. Patient was sent to the ER for further evaluation. Patient has 3 days left of detoxification on Methadone per [facility] staff. Otherwise patient reports he had a seizure 1 year ago and has not taken any Keppra for over 4 months without a seizure. He is adamant about not taking Keppra. Otherwise he denies any fever/chills, abdominal pain, back pain, dysuria, hematuria. He is on Lasix TWICE daily at home, however his frequency of urination has not changed. Vital Signs Temperature 99.2 F 01/07/20 10:00 Pulse Rate 60 01/07/20 10:00 Respiratory Rate 20 01/07/20 10:00 Blood Pressure 135/75 01/07/20 10:00 O2 Sat by Pulse Oximetry (%) 98 01/07/20 10:00 PE: Gen: NAD, awake, alert, oriented HEENT: NC/AT, EOMI, ROSI, sclera anicteric, MMM LUNG: CTA b/l without wheezes or rales, thoracic midline scar noted CARD: RRR no murmurs appreciated ABD: soft, NT/ND, + BS, LLQ scarring noted BACK: No CVA tenderness EXT: No edema, no calf tenderness CBC, BMP 01/07/20 07:14 01/07/20 07:14 Active Medications Albuterol Sulfate (Ventolin Hfa Inhaler -) 2 puff IH Q4H PRN PRN Reason: ASTHMA Amlodipine Besylate (Norvasc -) 10 mg PO DAILY [facility] Last Admin: 01/07/20 11:16 Dose: 10 mg Documented by: Aspirin (Asa -) 81 mg PO DAILY [facility] Last Admin: 01/07/20 09:47 Dose: 81 mg Documented by: Atorvastatin Calcium (Lipitor -) 40 mg PO HS [facility] Last Admin: 01/06/20 21:36 Dose: 40 mg Documented by: Clopidogrel Bisulfate (Plavix -) 75 mg PO DAILY [facility] Last Admin: 01/07/20 09:42 Dose: 75 mg Documented by: Ferrous Sulfate (Feosol -) 325 mg PO BIDWM [facility] Last Admin: 01/07/20 09:43 Dose: 325 mg Documented by: Sodium Chloride (Normal Saline -) 1,000 mls @ 100 mls/hr IV ASDIR [facility] Last Admin: 01/07/20 06:29 Dose: 100 mls/hr Documented by: Methadone HCl (Dolophine -) 10 mg PO ONCE ONE Stop: 01/08/20 10:01 Multivitamins/Minerals/Vitamin C (Tab-A-Vit -) 1 tab PO DAILY [facility] Last Admin: 01/07/20 09:43 Dose: 1 tab Documented by: Assessment/Plan: Acute on chronic kidney injury Prerenal Azotemia Acute Opiate Withdrawals Iron Deficiency Anemia History of HIV History of Hepatitis C (unknown treatment) History of CVA History of Aortic Dissection s/p repair History of Metabolic Syndrome --Patient FeUrea 26% indicating pre-renal causes --Cr 2.1 --> 2.2 today; would continue IVF for 24 hr trial --Urine Eosinophils pending --Pending CT A/P and Renal U/S read ----Unable to use contrast for CT scan due to above --Nephrology on board --Avoid other nephrotoxic agents --Holding home thiazide and loop diuretics alongside of ACEi --staff software engineer confirmed with [facility] staff regarding detox regimen --Methadone 15mg daily today and decrease by 5 mg each day --Continue Norvasc 10mg qdaily for BP control --Continue home iron supplementations and antiplatelet medications dispo: f/u imaging; continue IVF; continue monitoring Cristhian Guardado, - IM
[2020-01-07] MEDS: amLODIPine BESYLATE 10 MG TABLET (FP) PO SCH (11:16)
--- NOTE | 2020-01-07 12:25 | PN ---
Progress Note, Physician History of Present Illness: Seen and examined at the bedside awake and alert offers no acute complaints denies any sob, cp, fever, chills making urine on IV fluids tolerating diet no abdominal pain - Current Medication List Current Medications: Active Medications Albuterol Sulfate (Ventolin Hfa Inhaler -) 2 puff IH Q4H PRN PRN Reason: ASTHMA Amlodipine Besylate (Norvasc -) 10 mg PO DAILY [facility] Last Admin: 01/07/20 11:16 Dose: 10 mg Documented by: Aspirin (Asa -) 81 mg PO DAILY [facility] Last Admin: 01/07/20 09:47 Dose: 81 mg Documented by: Atorvastatin Calcium (Lipitor -) 40 mg PO HS [facility] Last Admin: 01/06/20 21:36 Dose: 40 mg Documented by: Clopidogrel Bisulfate (Plavix -) 75 mg PO DAILY [facility] Last Admin: 01/07/20 09:42 Dose: 75 mg Documented by: Ferrous Sulfate (Feosol -) 325 mg PO BIDWM [facility] Last Admin: 01/07/20 09:43 Dose: 325 mg Documented by: Sodium Chloride (Normal Saline -) 1,000 mls @ 100 mls/hr IV ASDIR [facility] Last Admin: 01/07/20 06:29 Dose: 100 mls/hr Documented by: Methadone HCl (Dolophine -) 10 mg PO ONCE ONE Stop: 01/08/20 10:01 Multivitamins/Minerals/Vitamin C (Tab-A-Vit -) 1 tab PO DAILY [facility] Last Admin: 01/07/20 09:43 Dose: 1 tab Documented by: - Objective Vital Signs: Vital Signs Temperature 99.2 F 01/07/20 10:00 Pulse Rate 60 01/07/20 10:00 Respiratory Rate 20 01/07/20 10:00 Blood Pressure 135/75 01/07/20 10:00 O2 Sat by Pulse Oximetry (%) 98 01/07/20 10:00 Constitutional: Yes: No Distress, Calm Neck: Yes: Supple Cardiovascular: Yes: Regular Rate and Rhythm Respiratory: Yes: Regular Gastrointestinal: Yes: Soft Extremities: No: Cyanosis Edema: No Neurological: Yes: Alert Labs: CBC, BMP 01/07/20 07:14 01/07/20 07:14 Assessment/Plan 49 y.o. M PMHx of HTN, DM, heroin abuse, Hep C, HIV aortic dissection 09/2019 presenting from [facility] due to elevated Cr values. 1. Acute kidney injury 2. Heroin use/Rehab 3. Recent aortic dissection 4. Hypertension 5. Hep C/HV Differential for CALLUM: Volume depletion/hemodynamic injury (Diuretics/MARY) vs. ischemic/embolic kidney injury following aortic dissection repair vs. GN/RPGN vs. obstruction vs. pigment injury UA w/o blood or proteinuria, UPCR is 0.3 FeUrea is < 35% consistent with pre-renal injury CK levels pending follow up CT of Abd/Pelvis to access for patency of renal arteries- result pending Hold MARY/Diuretics/Metformin Avoid IV Contrast and NSAIDs if possible no acute need for renal replacement therapy based on labs from rehab BP control with CCB/BB Continue IV fluids at present rate. Thank you Will follow up Uziel Pantoja DO
[2020-01-07] MEDS: ATORVASTATIN CA 40 MG TABLET (FP) PO SCH (21:14)
--- NOTE | 2020-01-07 21:48 | EKG ---
Test Reason : Blood Pressure : / mmHG Vent. Rate : 059 BPM Atrial Rate : 059 BPM P-R Int : 194 ms QRS Dur : 108 ms QT Int : 474 ms P-R-T Axes : 067 002 080 degrees QTc Int : 469 ms SINUS BRADYCARDIA VOLTAGE CRITERIA FOR LEFT VENTRICULAR HYPERTROPHY INFERIOR INFARCT (CITED ON OR BEFORE 14-AUG-2016) ABNORMAL ECG WHEN COMPARED WITH ECG OF 04-JAN-2020 11:53, NONSPECIFIC T WAVE ABNORMALITY, WORSE IN LATERAL LEADS Confirmed by Courtney Lorenz ([id number]) on 01/07/2020 9:47:57 PM Referred By: Confirmed By:Courtney Lorenz
[2020-01-08] MEDS: SODIUM CHLORIDE 1,000 ML IV SCH ×4 (02:05→22:00)
[2020-01-08 08:47] LABS: CALCIUM 8.8 mg/dL (8.5-10.1); CREATININE 1.8 mg/dL (0.55-1.3)
[2020-01-08] MEDS ORDERED: METHADONE HCL 10 MG TABLET PO ONE (10:00)
[2020-01-08] MEDS: amLODIPine BESYLATE 10 MG TABLET (FP) PO SCH (10:09)
[2020-01-08] MEDS: ASPIRIN 81 MG CHEWABLE TABLETS PO SCH (10:09)
[2020-01-08] MEDS: MULTIVITAMINS (DAILY MVI) TABLET (FP) PO SCH (10:09)
[2020-01-08] MEDS: FERROUS SO4 325 MG TABLET (FP) PO SCH ×2 (10:09→17:01)
[2020-01-08] MEDS: CLOPIDOGREL BISULFATE 75 MG TABLET (FP) PO SCH (10:09)
--- NOTE | 2020-01-08 13:19 | PN ---
Teaching Attending Note Name of Resident: Tommy Pendleton ATTENDING PHYSICIAN STATEMENT I saw and evaluated the patient. I reviewed the resident's note and discussed the case with the resident. I agree with the resident's findings and plan as documented. SUBJECTIVE: Seen and examined at bedside. Alert and oriented x3. States he is feeling a li ttle bit better. Creatinine downtrending OBJECTIVE Last Vital Signs Temp Pulse Resp BP Pulse Ox 98.2 F 88 20 160/70 96 01/08/20 05:40 01/08/20 09:00 01/08/20 09:00 01/08/20 09:00 01/08/20 09:00 PE: Per resident note Labs/Imaging: reviewed ASSESSMENT/PLAN 49-year-old male past medical history of HTN, HLD, DM, recent AAA dissection repair, CAD status post stents, CVA in 2019, asthma, presents from [facility] for elevated creatinine. Patient was found to have an elevated fractional excretion of urea suggestive of prerenal CALLUM #CALLUM on CKD secondary to prerenal azotemia Continue fluids Trend creatinine Nephrology on board: Appreciate recommendations #Heroin detox Continue methadone taper #Hypertension Continue amlodipine #CAD/HLD/recent AAA repair Continue statin, ASA, clopidogrel #Hx Asthma -cont PRN albuterol Dispo: cont fluids, likely DC tomorrow if administrative support clerk continues to improve
--- NOTE | 2020-01-08 15:25 | PN ---
Progress Note, Physician History of Present Illness: Pt seen and examined at bedside. He is awake and alert. he denies shortness of breath. - Current Medication List Current Medications: Active Medications Albuterol Sulfate (Ventolin Hfa Inhaler -) 2 puff IH Q4H PRN PRN Reason: ASTHMA Amlodipine Besylate (Norvasc -) 10 mg PO DAILY [facility] Last Admin: 01/08/20 10:09 Dose: 10 mg Documented by: Aspirin (Asa -) 81 mg PO DAILY [facility] Last Admin: 01/08/20 10:09 Dose: 81 mg Documented by: Atorvastatin Calcium (Lipitor -) 40 mg PO HS [facility] Last Admin: 01/07/20 21:14 Dose: 40 mg Documented by: Clopidogrel Bisulfate (Plavix -) 75 mg PO DAILY [facility] Last Admin: 01/08/20 10:09 Dose: 75 mg Documented by: Ferrous Sulfate (Feosol -) 325 mg PO BIDWM [facility] Last Admin: 01/08/20 10:09 Dose: 325 mg Documented by: Sodium Chloride (Normal Saline -) 1,000 mls @ 100 mls/hr IV ASDIR [facility] Last Admin: 01/08/20 10:11 Dose: 100 mls/hr Documented by: Multivitamins/Minerals/Vitamin C (Tab-A-Vit -) 1 tab PO DAILY [facility] Last Admin: 01/08/20 10:09 Dose: 1 tab Documented by: - Objective Vital Signs: Vital Signs Temperature 98.1 F 01/08/20 14:27 Pulse Rate 68 01/08/20 14:27 Respiratory Rate 20 01/08/20 14:27 Blood Pressure 147/74 01/08/20 14:27 O2 Sat by Pulse Oximetry (%) 96 01/08/20 09:00 Constitutional: Yes: Calm Eyes: Yes: Conjunctiva Clear HENT: Yes: Atraumatic Neck: Yes: Supple Cardiovascular: Yes: S1, S2 Respiratory: Yes: CTA Bilaterally Gastrointestinal: Yes: Soft Genitourinary: Yes: WNL Musculoskeletal: Yes: WNL Edema: No Neurological: Yes: Oriented Psychiatric: Yes: Oriented Labs: CBC, BMP 01/07/20 07:14 01/08/20 07:27 Assessment/Plan Current Medications Generic Name Dose Route Start Last Admin Trade Name Freq PRN Reason Stop Dose Admin Albuterol Sulfate 2 puff 01/06/20 17:59 Ventolin Hfa Inhaler - IH Q4H PRN ASTHMA Amlodipine Besylate 10 mg 01/07/20 10:00 01/08/20 10:09 Norvasc - PO 10 mg DAILY [facility] Administration Aspirin 81 mg 01/07/20 10:00 01/08/20 10:09 Asa - PO 81 mg DAILY [facility] Administration Atorvastatin Calcium 40 mg 01/06/20 22:00 01/07/20 21:14 Lipitor - PO 40 mg HS [facility] Administration Clopidogrel Bisulfate 75 mg 01/07/20 10:00 01/08/20 10:09 Plavix - PO 75 mg DAILY [facility] Administration Ferrous Sulfate 325 mg 01/07/20 08:00 01/08/20 10:09 Feosol - PO 325 mg BIDWM [facility] Administration Sodium Chloride 1,000 mls @ 100 mls/hr 01/06/20 17:45 01/08/20 10:11 Normal Saline - IV 100 mls/hr ASDIR [facility] Administration Multivitamins/Minerals/Vitamin C 1 tab 01/07/20 10:00 01/08/20 10:09 Tab-A-Vit - PO 1 tab DAILY [facility] Administration Laboratory Tests 01/06/20 21:43 Urine Protein Negative Urine Blood Negative 1. Acute kidney injury 2. Heroin use 3. Recent aortic dissection with repair 4. Hypertension 5. 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
--- NOTE | 2020-01-08 16:56 | PN ---
Physical Exam: SUBJECTIVE: Patient seen and examined at bedside this AM. OBJECTIVE: Vital Signs Period Temp Pulse Resp BP Sys/Acevedo Pulse Ox Last 24 Hr 97.8 F-98.2 F 62-88 20-20 137-162/70-97 96-100 GENERAL: NAD HEAD: Normal with no signs of trauma. EYES: EOMI Sclera Clear ENT: ++Thrush NECK: Trachea midline, full range of motion, supple. LUNGS: CTAB HEART: JUNG RUSB/LSB likely 2/2 radiation from abdomen ABDOMEN: Surgical scar left side abdomen 2/2 AAA stenting. Audible Bruit appreciated EXTREMITIES: 2+ pulses, warm, well-perfused, no edema. NEUROLOGICAL: Cranial nerves II through XII grossly intact. PSYCH: Normal mood, normal affect. SKIN: Warm, dry, normal turgor, no rashes or lesions noted Laboratory Results - last 24 hr 01/07/20 01/08/20 16:15 07:27 Sodium 133 L Potassium 5.0 Chloride 101 Carbon Dioxide 27 Anion Gap 5 L BUN 32.0 H Creatinine 1.8 H Est GFR (CKD-EPI)AfAm 49.40 Est GFR (CKD-EPI)NonAf 42.63 Random Glucose 89 Calcium 8.8 Creatine Kinase 27 Active Medications Generic Name Dose Route Start Last Admin Trade Name Freq PRN Reason Stop Dose Admin Albuterol Sulfate 2 puff 01/06/20 17:59 Ventolin Hfa Inhaler - IH Q4H PRN ASTHMA Amlodipine Besylate 10 mg 01/07/20 10:00 01/08/20 10:09 Norvasc - PO 10 mg DAILY [facility] Administration Aspirin 81 mg 01/07/20 10:00 01/08/20 10:09 Asa - PO 81 mg DAILY [facility] Administration Atorvastatin Calcium 40 mg 01/06/20 22:00 01/07/20 21:14 Lipitor - PO 40 mg HS [facility] Administration Clopidogrel Bisulfate 75 mg 01/07/20 10:00 01/08/20 10:09 Plavix - PO 75 mg DAILY [facility] Administration Ferrous Sulfate 325 mg 01/07/20 08:00 01/08/20 10:09 Feosol - PO 325 mg BIDWM [facility] Administration Sodium Chloride 1,000 mls @ 100 mls/hr 01/06/20 17:45 01/08/20 10:11 Normal Saline - IV 100 mls/hr ASDIR [facility] Administration Multivitamins/Minerals/Vitamin C 1 tab 01/07/20 10:00 01/08/20 10:09 Tab-A-Vit - PO 1 tab DAILY [facility] Administration ASSESSMENT/PLAN: Pt is a 49 year old male with PMHx of HTN, HLD, DM, AAA dissection repair, CAD s/p stents, CVA in 2019, asthma presenting from [facility] where he is being treated for heroin detoxification with methadone admitted for CALLUM. #CALLUM on CKD -Cr 1.8, baseline ~1.4 -1L LR fluid bolus given; NS 100cc/hr continuous fluids. recheck BMP in am. If trending downwards, may transfer back to [facility]. -Renal u/s ordered---> No obstruction appreciated -FeUrea used as FENA not applicable since patient is reportedly on a loop diuretic at home. FeUrea < 35% consistent with pre-renal disease. -Hold home HCTZ, Lasix, Lisinopril, Metformin, and avoid other nephrotoxic medications -Renal on board---> Etiology of CALLUM---> Volume depletion/hemodynamic injury (Diuretics/MARY) vs. ischemic/embolic kidney injury following aortic dissection repair vs. GN/RPGN vs. obstruction vs. pigment injury #Heroin detox, on methadone -Continue with Methadone detox #Hx HTN -Hold Lasix, HCTZ, Lisinopril due to CALLUM -On Norvasc 10mg. Previous listed medications not reconciled. Patient states [facility] is his pharmacy however pharmacy does not have record of many of his medications. #HIV -Resume John -will order Nystatin for Thrush #Hx CAD -cont ASA, Plavix -cont Lipitor #Hx asthma -cont albuterol PRN PPx Heparin 5000 u TID FEN NS 100 cc/hr Monitor lytes Diabetic/sodium controlled diet Dispo Med surg. Visit type - Emergency Visit Emergency Visit: Yes ED Registration Date: 01/06/20 Care time: The patient presented to the Emergency Department on the above date and was hospitalized for further evaluation of their emergent condition. - New Patient This patient is new to me today: No - Critical Care Critical Care patient: No - Discharge Referral Referred to [facility] Med P.C.: No ATTENDING PHYSICIAN STATEMENT I saw and evaluated the patient. I reviewed the resident's note and discussed the case with the resident. I agree with the resident's findings and plan as documented. SUBJECTIVE: OBJECTIVE: ASSESSMENT AND PLAN:
[2020-01-08] MEDS: EMTRICITAB/RILPIVIRI/TENOF ALA (ODEFSEY) TABLET PO SCH (17:41)
[2020-01-08] MEDS: ATORVASTATIN CA 40 MG TABLET (FP) PO SCH (21:34)
[2020-01-09] MEDS ORDERED: IRON SUCROSE INJECTION 200 MG in SODIUM CHLORIDE 90 ML IVPB ONE (08:32)
[2020-01-09 09:05] LABS: HEMATOCRIT 31.2 % (35.4-49); HEMOGLOBIN 10.5 GM/dL (11.7-16.9); MCH 26.5 pg (25.7-33.7); MCHC 33.6 g/dl (32.0-35.9); MEAN CELL VOLUME 78.7 fl (80-96); MEAN PLT VOLUME 7.5 fl (7.5-11.1); PLATELET COUNT 190 K/MM3 (134-434); RBC 3.96 M/mm3 (4.00-5.60); RDW 17.5 % (11.9-15.9); WHITE BLOOD COUNT 3.7 K/mm3 (4.0-10.0)
[2020-01-09 09:31] LABS: BLOOD UREA NITROGEN 28.9 mg/dL (7-18); CALCIUM 9.1 mg/dL (8.5-10.1); CREATININE 1.8 mg/dL (0.55-1.3); MAGNESIUM 2.1 mg/dL (1.8-2.4); PHOSPHOROUS 3.1 mg/dL (2.5-4.9); POTASSIUM 4.3 mmol/L (3.5-5.1)
[2020-01-09] MEDS: FERROUS SO4 325 MG TABLET (FP) PO SCH ×2 (09:51→18:39)
[2020-01-09] MEDS: CLOPIDOGREL BISULFATE 75 MG TABLET (FP) PO SCH (09:51)
[2020-01-09] MEDS: amLODIPine BESYLATE 10 MG TABLET (FP) PO SCH (09:51)
[2020-01-09] MEDS: ASPIRIN 81 MG CHEWABLE TABLETS PO SCH (09:51)
[2020-01-09] MEDS: MULTIVITAMINS (DAILY MVI) TABLET (FP) PO SCH (09:51)
[2020-01-09] MEDS: EMTRICITAB/RILPIVIRI/TENOF ALA (ODEFSEY) TABLET PO SCH (09:51)
[2020-01-09] MEDS: SODIUM CHLORIDE 1,000 ML IV SCH ×2 (09:53→21:37)
[2020-01-09] MEDS ORDERED: METHADONE HCL 5 MG TABLET PO ONE (10:55)
--- NOTE | 2020-01-09 12:52 | PN ---
Progress Note, Physician History of Present Illness: Pt seen and examined at bedside. He is awake and alert. He denies shortness of breath. He denies dysuria. - Current Medication List Current Medications: Active Medications Albuterol Sulfate (Ventolin Hfa Inhaler -) 2 puff IH Q4H PRN PRN Reason: ASTHMA Amlodipine Besylate (Norvasc -) 10 mg PO DAILY [facility] Last Admin: 01/09/20 09:51 Dose: 10 mg Documented by: Aspirin (Asa -) 81 mg PO DAILY [facility] Last Admin: 01/09/20 09:51 Dose: 81 mg Documented by: Atorvastatin Calcium (Lipitor -) 40 mg PO HS [facility] Last Admin: 01/08/20 21:34 Dose: 40 mg Documented by: Clopidogrel Bisulfate (Plavix -) 75 mg PO DAILY [facility] Last Admin: 01/09/20 09:51 Dose: 75 mg Documented by: Ferrous Sulfate (Feosol -) 325 mg PO BIDWM [facility] Last Admin: 01/09/20 09:51 Dose: 325 mg Documented by: Sodium Chloride (Normal Saline -) 1,000 mls @ 100 mls/hr IV ASDIR [facility] Last Admin: 01/09/20 09:53 Dose: 100 mls/hr Documented by: Multivitamins/Minerals/Vitamin C (Tab-A-Vit -) 1 tab PO DAILY [facility] Last Admin: 01/09/20 09:51 Dose: 1 tab Documented by: - Objective Vital Signs: Vital Signs Temperature 98.1 F 01/09/20 06:00 Pulse Rate 62 01/09/20 10:00 Respiratory Rate 18 01/09/20 10:00 Blood Pressure 158/87 01/09/20 10:00 O2 Sat by Pulse Oximetry (%) 96 01/09/20 10:00 Constitutional: Yes: Calm Eyes: Yes: Conjunctiva Clear HENT: Yes: Atraumatic Neck: Yes: Supple Cardiovascular: Yes: S1, S2 Respiratory: Yes: CTA Bilaterally Gastrointestinal: Yes: Normal Bowel Sounds, Soft Genitourinary: Yes: WNL Musculoskeletal: Yes: WNL Edema: No Neurological: Yes: Oriented Psychiatric: Yes: Oriented Labs: CBC, BMP 01/09/20 08:45 01/09/20 08:45 Assessment/Plan Current Medications Generic Name Dose Route Start Last Admin Trade Name Freq PRN Reason Stop Dose Admin Albuterol Sulfate 2 puff 01/06/20 17:59 Ventolin Hfa Inhaler - IH Q4H PRN ASTHMA Amlodipine Besylate 10 mg 01/07/20 10:00 01/09/20 09:51 Norvasc - PO 10 mg DAILY [facility] Administration Aspirin 81 mg 01/07/20 10:00 01/09/20 09:51 Asa - PO 81 mg DAILY [facility] Administration Atorvastatin Calcium 40 mg 01/06/20 22:00 01/08/20 21:34 Lipitor - PO 40 mg HS [facility] Administration Clopidogrel Bisulfate 75 mg 01/07/20 10:00 01/09/20 09:51 Plavix - PO 75 mg DAILY [facility] Administration Ferrous Sulfate 325 mg 01/07/20 08:00 01/09/20 09:51 Feosol - PO 325 mg BIDWM [facility] Administration Sodium Chloride 1,000 mls @ 100 mls/hr 01/06/20 17:45 01/09/20 09:53 Normal Saline - IV 100 mls/hr ASDIR [facility] Administration Multivitamins/Minerals/Vitamin C 1 tab 01/07/20 10:00 01/09/20 09:51 Tab-A-Vit - PO 1 tab DAILY [facility] Administration Laboratory Tests 01/06/20 21:43 Urine Protein Negative Urine Blood Negative 1. Acute kidney injury 2. Heroin use 3. Recent aortic dissection with repair 4. Hypertension 5. Hep C Plan - cont to monitor renal function - repeat labs in am - cont fluids - ua neg for blood or protein - monitor bp - avoid nsaids
--- NOTE | 2020-01-09 13:28 | PN ---
Teaching Attending Note Name of Resident: Tommy Pendleton ATTENDING PHYSICIAN STATEMENT I saw and evaluated the patient. I reviewed the resident's note and discussed the case with the resident. I agree with the resident's findings and plan as documented. SUBJECTIVE: Seen and examined at bedside. Alert and oriented x3. Creatinine stable. Medi pato cleared for discharge pending safe dispo plan. OBJECTIVE Last Vital Signs Temp Pulse Resp BP Pulse Ox 98.1 F 62 18 158/87 96 01/09/20 06:00 01/09/20 10:00 01/09/20 10:00 01/09/20 10:01/09/20 10:00 PE: Per resident note Labs/Imaging: reviewed ASSESSMENT/PLAN 49-year-old male past medical history of HTN, HLD, DM, recent AAA dissection repair, CAD status post stents, CVA in 2019, asthma, presents from [facility] for elevated creatinine. Patient was found to have an elevated fractional excretion of urea suggestive of prerenal CALLUM #CALLUM on CKD secondary to prerenal azotemia Continue fluids Trend creatinine Nephrology on board: Appreciate recommendations #Heroin detox Continue methadone taper #Hypertension Continue amlodipine #CAD/HLD/recent AAA repair Continue statin, ASA, clopidogrel #Hx Asthma -cont PRN albuterol Dispo: cont fluids, likely DC tomorrow if runner on continues to improve
--- NOTE | 2020-01-09 20:34 | PN ---
Physical Exam: SUBJECTIVE: Patient seen and examined this AM. No acute events overnight. OBJECTIVE: Vital Signs Period Temp Pulse Resp BP Sys/Acevedo Pulse Ox Last 24 Hr 98.1 F-99.2 F 60-68 18-20 137-158/65-89 96-100 GENERAL: No acute distress HEAD: AT/NC EYES: EOMI Sclera Clear NECK: Trachea midline, full range of motion, supple. LUNGS: CTAB HEART: JUNG RUSB/LSB likely 2/2 radiation from abdomen ABDOMEN: Surgical scar left side abdomen 2/2 AAA stenting. Audible Bruit appreciated EXTREMITIES: 2+ pulses, warm, well-perfused, no edema. NEUROLOGICAL: Cranial nerves II through XII grossly intact. PSYCH: Normal mood, normal affect. SKIN: Warm, dry, normal turgor, no rashes or lesions noted Laboratory Results - last 24 hr 01/07/20 01/09/20 01/09/20 16:15 08:45 08:45 WBC 3.7 L RBC 3.96 L Hgb 10.5 L Hct 31.2 L MCV 78.7 L MCH 26.5 MCHC 33.6 RDW 17.5 H Plt Count 190 MPV 7.5 Haptoglobin 226 Sodium 136 Potassium 4.3 Chloride 102 Carbon Dioxide 29 Anion Gap 5 L BUN 28.9 H Creatinine 1.8 H Est GFR (CKD-EPI)AfAm 49.40 Est GFR (CKD-EPI)NonAf 42.63 Random Glucose 94 Calcium 9.1 Phosphorus 3.1 Magnesium 2.1 Active Medications Generic Name Dose Route Start Last Admin Trade Name Freq PRN Reason Stop Dose Admin Albuterol Sulfate 2 puff 01/06/20 17:59 Ventolin Hfa Inhaler - IH Q4H PRN ASTHMA Amlodipine Besylate 10 mg 01/07/20 10:00 01/09/20 09:51 Norvasc - PO 10 mg DAILY [facility] Administration Aspirin 81 mg 01/07/20 10:00 01/09/20 09:51 Asa - PO 81 mg DAILY [facility] Administration Atorvastatin Calcium 40 mg 01/06/20 22:00 01/08/20 21:34 Lipitor - PO 40 mg HS [facility] Administration Clopidogrel Bisulfate 75 mg 01/07/20 10:00 01/09/20 09:51 Plavix - PO 75 mg DAILY [facility] Administration Ferrous Sulfate 325 mg 01/07/20 08:00 01/09/20 18:39 Feosol - PO Not Given [facility] Sodium Chloride 1,000 mls @ 100 mls/hr 01/06/20 17:45 01/09/20 09:53 Normal Saline - IV 100 mls/hr ASDIR [facility] Administration Multivitamins/Minerals/Vitamin C 1 tab 01/07/20 10:00 01/09/20 09:51 Tab-A-Vit - PO 1 tab DAILY [facility] Administration ASSESSMENT/PLAN: Pt is a 49 year old male with PMHx of HTN, HLD, DM, AAA dissection repair, CAD s/p stents, CVA in 2019, asthma presenting from [facility] where he is being treated for heroin detoxification with methadone admitted for CALLUM. #CALLUM on CKD -Cr 1.8 again today. Per Iban, patient's creatinine after his AAA stenting was > 2. Etiology likely 2/2 ischemic/embolic kidney injury following aortic dissection repair -Received fluid boluses. Currently on 100cc/hr NS. -Renal u/s ordered---> No obstruction appreciated -FeUrea used as FENA not applicable since patient is reportedly on a loop diuretic at home. FeUrea < 35% consistent with pre-renal disease. -Hold home HCTZ, Lasix, Lisinopril, Metformin, and avoid other nephrotoxic medications -Renal on board. Recs appreciated #Heroin detox, on methadone -Finished detox today, Jan 09, 2020 # Free Fluid Right pericolic space and hepatorenal fossa -May represent blood per CTAP - Recommended for patient to undergo repeat study with IV contrast however patient with CALLUM. Per report, may also order MRI Abdomen as an alternative. Patient sent down to radiology today however was informed by RN that patient unable to have test as patient has stents 2/2 AAA repair. If patient cannot have this test done, he may be discharged tomorrow. #Hx HTN -Hold Lasix, HCTZ, Lisinopril due to CALLUM -On Norvasc 10mg. Previous listed medications not reconciled. Patient states [facility] is his pharmacy however pharmacy does not have record of many of his medications. -Lasix, Lisinopril have been discontinued in light of CALLUM. Currently on Amlodpine 10. #HIV -Resume John -will order Nystatin for Thrush #Hx CAD -cont ASA, Plavix -cont Lipitor #Hx asthma -cont albuterol PRN PPx Heparin 5000 u TID FEN NS 100 cc/hr Monitor lytes Diabetic/sodium controlled diet Dispo D/C tomorrow if no alternative test may be done to assess finding on CTAP. Visit type - Emergency Visit Emergency Visit: Yes ED Registration Date: 01/06/20 Care time: The patient presented to the Emergency Department on the above date and was hospitalized for further evaluation of their emergent condition. - New Patient This patient is new to me today: No - Critical Care Critical Care patient: No - Discharge Referral Referred to [facility] Med P.C.: No ATTENDING PHYSICIAN STATEMENT I saw and evaluated the patient. I reviewed the resident's note and discussed the case with the resident. I agree with the resident's findings and plan as documented. SUBJECTIVE: OBJECTIVE: ASSESSMENT AND PLAN:
[2020-01-09] MEDS: ATORVASTATIN CA 40 MG TABLET (FP) PO SCH ×2 (21:37→21:42)
[2020-01-10] MEDS ORDERED: BISMUTH SUBSALICYLATE 262 MG/15 ML BTL PO ONE (02:28)
[2020-01-10] MEDS ORDERED: BISMUTH SUBSALICYLATE 524 MG/30 ML UD PO ONE (02:31)
[2020-01-10] MEDS: SODIUM CHLORIDE 1,000 ML IV SCH (05:43)
[2020-01-10] MEDS ORDERED: PT OWN MED DRAWER 7, Y5N ONE ×2 (09:03→10:34)
[2020-01-10] MEDS: FERROUS SO4 325 MG TABLET (FP) PO SCH (09:06)
[2020-01-10] MEDS: CLOPIDOGREL BISULFATE 75 MG TABLET (FP) PO SCH (10:35)
[2020-01-10] MEDS: ASPIRIN 81 MG CHEWABLE TABLETS PO SCH (10:35)
[2020-01-10] MEDS: MULTIVITAMINS (DAILY MVI) TABLET (FP) PO SCH (10:35)
[2020-01-10] MEDS: EMTRICITAB/RILPIVIRI/TENOF ALA (ODEFSEY) TABLET PO SCH (10:35)
[2020-01-10] MEDS: amLODIPine BESYLATE 10 MG TABLET (FP) PO SCH (10:35)
--- NOTE | 2020-01-10 12:10 | PN ---
Progress Note, Physician History of Present Illness: Pt seen and examined at bedside. He is awake and alert. He denies shortness of breath. - Current Medication List Current Medications: Active Medications Albuterol Sulfate (Ventolin Hfa Inhaler -) 2 puff IH Q4H PRN PRN Reason: ASTHMA Amlodipine Besylate (Norvasc -) 10 mg PO DAILY [facility] Last Admin: 01/10/20 10:35 Dose: 10 mg Documented by: Aspirin (Asa -) 81 mg PO DAILY [facility] Last Admin: 01/10/20 10:35 Dose: 81 mg Documented by: Atorvastatin Calcium (Lipitor -) 40 mg PO HS [facility] Last Admin: 01/09/20 21:42 Dose: Not Given Documented by: Clopidogrel Bisulfate (Plavix -) 75 mg PO DAILY [facility] Last Admin: 01/10/20 10:35 Dose: 75 mg Documented by: Ferrous Sulfate (Feosol -) 325 mg PO BIDWM [facility] Last Admin: 01/10/20 09:06 Dose: Not Given Documented by: Sodium Chloride (Normal Saline -) 1,000 mls @ 100 mls/hr IV ASDIR [facility] Last Admin: 01/10/20 05:43 Dose: 100 mls/hr Documented by: Multivitamins/Minerals/Vitamin C (Tab-A-Vit -) 1 tab PO DAILY [facility] Last Admin: 01/10/20 10:35 Dose: 1 tab Documented by: - Objective Vital Signs: Vital Signs Temperature 98.9 F 01/10/20 08:55 Pulse Rate 64 01/10/20 08:55 Respiratory Rate 20 01/10/20 08:55 Blood Pressure 148/88 01/10/20 08:55 O2 Sat by Pulse Oximetry (%) 99 01/10/20 09:00 Constitutional: Yes: Calm Eyes: Yes: Conjunctiva Clear HENT: Yes: Atraumatic Neck: Yes: Supple Cardiovascular: Yes: S1, S2 Respiratory: Yes: CTA Bilaterally Gastrointestinal: Yes: Soft Genitourinary: Yes: WNL Edema: No Neurological: Yes: Oriented Psychiatric: Yes: Oriented Labs: CBC, BMP 01/09/20 08:45 01/09/20 08:45 Problem List - Problems (1) Acute kidney injury superimposed on CKD Code(s): N17.9 - ACUTE KIDNEY FAILURE, UNSPECIFIED; N18.9 - CHRONIC KIDNEY DISEASE, UNSPECIFIED (2) Cocaine dependence Code(s): F14.20 - COCAINE DEPENDENCE, UNCOMPLICATED Qualifiers: Substance use status: uncomplicated Qualified Code(s): F14.20 - Cocaine dependence, uncomplicated (3) Hepatitis C Code(s): B19.20 - UNSPECIFIED VIRAL HEPATITIS C WITHOUT HEPATIC COMA Qualifiers: Viral hepatitis chronicity: unspecified Hepatic coma status: without hepatic coma Qualified Code(s): B19.20 - Unspecified viral hepatitis C without hepatic coma Assessment/Plan Current Medications Generic Name Dose Route Start Last Admin Trade Name Freq PRN Reason Stop Dose Admin Albuterol Sulfate 2 puff 01/06/20 17:59 Ventolin Hfa Inhaler - IH Q4H PRN ASTHMA Amlodipine Besylate 10 mg 01/07/20 10:00 01/10/20 10:35 Norvasc - PO 10 mg DAILY [facility] Administration Aspirin 81 mg 01/07/20 10:00 01/10/20 10:35 Asa - PO 81 mg DAILY [facility] Administration Atorvastatin Calcium 40 mg 01/06/20 22:00 01/09/20 21:42 Lipitor - PO Not Given HS [facility] Clopidogrel Bisulfate 75 mg 01/07/20 10:00 01/10/20 10:35 Plavix - PO 75 mg DAILY [facility] Administration Ferrous Sulfate 325 mg 01/07/20 08:00 01/10/20 09:06 Feosol - PO Not Given BIDWM [facility] Sodium Chloride 1,000 mls @ 100 mls/hr 01/06/20 17:45 01/10/20 05:43 Normal Saline - IV 100 mls/hr ASDIR [facility] Administration Multivitamins/Minerals/Vitamin C 1 tab 01/07/20 10:00 01/10/20 10:35 Tab-A-Vit - PO 1 tab DAILY [facility] Administration 1. Acute kidney injury 2. Heroin use 3. Recent aortic dissection with repair 4. Hypertension 5. Hep C 6. 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
[2020-01-10 12:19] LABS: BASO % 0.9 % (0-2.0); EOS % 2.4 % (0-4.5); HEMATOCRIT 29.4 % (35.4-49); HEMOGLOBIN 9.7 GM/dL (11.7-16.9); MCHC 32.9 g/dl (32.0-35.9); MEAN CELL VOLUME 79.1 fl (80-96); MEAN PLT VOLUME 8.7 fl (7.5-11.1); MONO % 11.6 % (3.8-10.2); NEUT % 68.1 % (42.8-82.8); PLATELET COUNT 184 K/MM3 (134-434); RBC 3.72 M/mm3 (4.00-5.60); RDW 17.5 % (11.9-15.9)
[2020-01-10 12:41] LABS: ALBUMIN 3.2 g/dl (3.4-5.0); BILIRUBIN,TOTAL 1.2 mg/dL (0.2-1); BLOOD UREA NITROGEN 28.4 mg/dL (7-18); CALCIUM 9.4 mg/dL (8.5-10.1); CREATININE 1.8 mg/dL (0.55-1.3); PHOSPHOROUS 3.3 mg/dL (2.5-4.9); POTASSIUM 4.3 mmol/L (3.5-5.1); TOT PROT 7.9 g/dl (6.4-8.2)
--- NOTE | 2020-01-10 13:06 | PN ---
Teaching Attending Note Name of Resident: Reagan Castrejon ATTENDING PHYSICIAN STATEMENT I saw and evaluated the patient. I reviewed the resident's note and discussed the case with the resident. I agree with the resident's findings and plan as documented. SUBJECTIVE: Seen and examined at bedside. Alert and oriented x3. Creatinine stable at 1. 8. This likely represents patient's baseline. Will give patient quick fluid bolus followed by repeat CT abdomen and pelvis with contrast to evaluate "complex free fluid within the right pericolic space and hepatorenal fossa, possibly representing blood" prior to DC OBJECTIVE Last Vital Signs Temp Pulse Resp BP Pulse Ox 98.9 F 64 20 148/88 99 01/10/20 08:55 01/10/20 08:55 01/10/20 08:55 01/10/20 08:55 01/10/20 09:00 PE: Per resident note Labs/Imaging: reviewed ASSESSMENT/PLAN 49-year-old male past medical history of HTN, HLD, DM, recent AAA dissection repair, CAD status post stents, CVA in 2019, asthma, presents from [facility] for elevated creatinine. Patient was found to have an elevated fractional excretion of urea suggestive of prerenal CALLUM #CALLUM on CKD secondary to prerenal azotemia Noise Tester 1.8 may be new baseline -fluid bolus prior to CT w/contrast #"complex free fluid within the right pericolic space and hepatorenal fossa, possibly representing blood" on initial CT -repeat CT abd with contrast. Pt not candidate for MRI given aortic stenting. 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
--- NOTE | 2020-01-10 13:29 | DS ---
Physical Exam: SUBJECTIVE: Patient seen and examined, Pt. endorses nausea and vomiting that has been persistent for weeks but occurs less than half the days per week. Discussed with Pt. CT findings and Pt. understands the risks and has stated that he will follow up with his Primary Care Physician and Surgeon for repeat abdominal imaging. OBJECTIVE: Vital Signs Period Temp Pulse Resp BP Sys/Acevedo Pulse Ox Last 24 Hr 98.6 F-99.2 F 60-64 18-20 147-156/74-89 99-99 PHYSICAL EXAM GENERAL: The patient is awake, alert, and fully oriented, in mild acute distress 2/2 nausea. HEAD: Normal with no signs of trauma. EYES: Sclera anicteric, conjunctiva clear. ENT: Ears normal, nares patent, oropharynx clear without exudates, moist mucous membranes. NECK: Trachea midline, full range of motion, supple. LUNGS: Breath sounds equal, clear to auscultation bilaterally, no wheezes, no crackles, no accessory muscle use. HEART: Regular rate and rhythm, S1, S2 without murmur ABDOMEN: Soft, nontender, nondistended, normoactive bowel sounds, no guarding, no rebound, palpable aortic stent EXTREMITIES: 2+ pulses, warm, well-perfused, no edema. NEUROLOGICAL: No focal deficits. Normal speech, gait not observed. PSYCH: Normal mood, normal affect. SKIN: Warm, dry, normal turgor LABS Laboratory Results - last 24 hr 01/10/20 01/10/20 11:05 11:05 WBC 4.0 RBC 3.72 L Hgb 9.7 L Hct 29.4 L MCV 79.1 L MCH 26.0 MCHC 32.9 RDW 17.5 H Plt Count 184 MPV 8.7 D Absolute Neuts (auto) 2.7 Neutrophils % 68.1 Lymphocytes % 17.0 D Monocytes % 11.6 H Eosinophils % 2.4 Basophils % 0.9 Nucleated RBC % 0 Sodium 133 L Potassium 4.3 Chloride 100 Carbon Dioxide 27 Anion Gap 6 L BUN 28.4 H Creatinine 1.8 H Est GFR (CKD-EPI)AfAm 49.40 Est GFR (CKD-EPI)NonAf 42.63 Random Glucose 82 Calcium 9.4 Phosphorus 3.3 Magnesium 2.0 Total Bilirubin 1.2 H AST 10 L ALT 8 L Alkaline Phosphatase 93 Total Protein 7.9 Albumin 3.2 L HOSPITAL COURSE: Date of Admission:01/06/20 Date of Discharge: 01/10/20 Pt. s a 49 y.o. M w/ PMHx of HTN, HLD, DM, AAA dissection repair, CAD s/p stents, CVA in 2019, asthma presenting from [facility] where he was being treated for heroin detoxification for CALLUM. Renal Us negative for obstruction or acute pathology. FUrea positive for pre-renal disease. CT A/P showed free complex flui d in the right colic gutter and the hepatorenal fossa. Lasix and Lisinopril were discontinued given CALLUM. Pt. received 7+L of IVF with stabalization of Cr. at 1.8. MRI w/o contrast could not be performed because of AAA stent. Pt. refused CT A/P w/ contrast as stated above. Medications were not able to be reconciled and Pt. strongly ecouraged to follow up with his PCP and Surgeon for repeat abdominal imaging and management of his medications after resolution of CALLUM. Medication adjustments and hospital follow up as detailed below. Pt. completed Heroin Detox while inpatient here. Minutes to complete discharge: 35 Discharge Summary Problems reviewed: Yes Reason For Visit: ACUTE KIDNEY INJURY Current Active Problems Acute kidney injury superimposed on CKD (Acute) Condition: Improved - Instructions Diet, Activity, Other Instructions: You presented to the hospital due to abnormal kidney function levels. Your creatinine has trended down. Please follow up with your primary care doctor in 1 week to repeat your blood work. It is unclear what medications you are currently taking at home. We were unable to reconcile your medications The only mediations that your pharmacy confirmed were Odefsey, Lasix, and Li sinopril Please STOP taking Lasix and Lisinopril as these may further worsen your kidney function. Please take Plavix, 75 mg daily, Amlodipine 10 mg Daily, Odefsey 1 tab daily, Atorvastatin 40 mg daily Ferrous Sulfate 325 mg Daily. We have provided you a new list of medications to take until you see your primary care provider in 1 week. If you do not have a primary care doctor, you may follow up at our clinic. A referral has been provided for you in your discharge papers. Please follow up with your Infectious Diseases doctor who manages your HIV. PLEASE Follow up with your Primary Care Physician, if you do not have one we have provided one for you. YOU NEED to have repeat Abdominal CT Scan with contrast OR MRI without contrast to evaluate the "complex fluid collection" in your abdomen. You stated that you would follow up with your Primary Care doctor and your surgeon to have these images repeated. We believe your nausea may be related to this finding. Please return to the hospital if you experience chest pain, shortness of breath, nausea/vomiting, lightheadedness, fever, or any other abnormal symptoms. Prescriptions have been sent to our hospital's pharmacy and will be delivered to your bedside. Referrals: [facility] [place] [Provider Group] - 1 Week ON STAFF,NOT [Primary Care Provider] - Abdelrahman Holcomb MD [Staff Physician] - 2 Weeks Disposition: HOME - Home Medications Comprehensive Discharge Medication List: Ambulatory Orders Amlodipine Besylate [Norvasc -] 10 mg PO DAILY #30 tablet 01/09/20 Atorvastatin Ca [Lipitor] 40 mg PO HS #30 tablet 01/09/20 Clopidogrel Bisulfate [Plavix] 75 mg PO DAILY #30 tablet 01/09/20 Emtricitab/Rilpiviri/Tenof Ala [Odefsey Tablet] 1 each PO DAILY #30 tablet 01/09/20 Ferrous Sulfate 325 mg PO DAILY #30 tablet 01/09/20 This patient is new to me today: Yes Date on this admission: 01/10/20 Emergency Visit: Yes ED Registration Date: 01/06/20 Care time: The patient presented to the Emergency Department on the above date and was hospitalized for further evaluation of their emergent condition. Critical Care patient: No - Discharge Referral Referred to [facility] No ATTENDING PHYSICIAN STATEMENT I saw and evaluated the patient. I reviewed the resident's note and discussed the case with the resident. I agree with the resident's findings and plan as documented. SUBJECTIVE: OBJECTIVE: ASSESSMENT AND PLAN:
[2020-01-10 13:56] VITALS: BP 150/78; PULSE 67; TEMP 99.4
== END 2020-01-10 17:54 | disposition home or self-care (01) | DRG 469 ==
LOC: JER 14:51 → JERBED 16:07 → J6S 22:40
PROVIDERS: ADMIT Internal Medicine; ATTEND Internal Medicine
PROC: HZ91ZZZ Pharmacotherapy for Substance Abuse Treatment, Methadone Maintenance (ICD-10-PCS; principal; 2020-01-06)
PROC: HZ2ZZZZ Detoxification Services for Substance Abuse Treatment (ICD-10-PCS; 2020-01-06)
DX: N17.9 Acute kidney failure, unspecified (principal); I10 Essential (primary) hypertension; E11.9 Type 2 diabetes mellitus without complications; Z21 Asymptomatic human immunodeficiency virus [HIV] infection status; F14.20 Cocaine dependence, uncomplicated; F11.23 Opioid dependence with withdrawal; B19.20 Unspecified viral hepatitis C without hepatic coma; I12.9 Hypertensive chronic kidney disease with stage 1 through stage 4 chronic kidney disease, or unspecified chronic kidney disease; E11.22 Type 2 diabetes mellitus with diabetic chronic kidney disease; J45.909 Unspecified asthma, uncomplicated; N18.9 Chronic kidney disease, unspecified; K66.1 Hemoperitoneum; Z86.73 Personal history of transient ischemic attack (TIA), and cerebral infarction without residual deficits; Z95.5 Presence of coronary angioplasty implant and graft
CPT/HCPCS: 36415; 71046-TC-FY; 74150-TC; 76775-TC; 80048; 80053; 81003; 82550; 82565; 82728; 83010; 83540; 83550; 83615; 83735; 84100; 84156; 84300; 84540; 85025; 85027; 87086; 87205; 93005; 93010; 99285-25; J1756

== ENCOUNTER 2020-03-04 08:32 | Inpatient (IN) | payer OTHER ==
[2020-03-03 18:44] VITALS: BMI 27.0
[2020-03-03] MEDS: NICOTINE 14 MG/24 HOURS TOPICAL PATCH TD SCH (20:51)
[2020-03-03] MEDS: MELATONIN 5 MG TABLETS PO SCH (23:03)
[2020-03-03] MEDS: THIAMINE HCL 100 MG TABLET (FP) PO SCH (23:03)
[2020-03-03] MEDS: cloNIDine HCL 0.1 MG TABLET PO PRN (23:07)
[2020-03-04] MEDS: cloNIDine HCL 0.1 MG TABLET PO PRN ×3 (05:45→22:12)
[~2020-03-04 08:32] MED LIST: ACETAMINOPHEN 325 MG TABLET (FP) PO PRN; BISMUTH SUBSALICYLATE 524 MG/30 ML UD PO PRN; IBUPROFEN 400 MG TABLET (FP) PO PRN; MAG HYDROX/AL HYDROX/SIMETH 30 ML UNIT-DOSE CUP PO PRN; MAGNESIUM CITRATE 300 ML BOTTLE PO PRN; MAGNESIUM HYDROX 2400MG/30ML ORAL SUSPENSION 30 ML CUP PO PRN; MENTHOL/PHENOL 1 EACH UD MM PRN; METHADONE HCL 10 MG TABLET (FOR DETOX USE ONLY) ONE; METHADONE HCL 10 MG TABLET (FOR DETOX USE ONLY) PO ONE; METHOCARBAMOL 500 MG TABLET PO PRN; NICOTINE POLACRILEX 2 MG GUM BUC PRN; ONDANSETRON *ODT* 4 MG TABLET SL PRN; cloNIDine HCL 0.1 MG TABLET ONE; hydrOXYzine PAMOATE 25 MG CAPSULE (FP) PO SCH
[2020-03-04] MEDS ORDERED: METHADONE (DETOX) 20 MG, METHADONE (DETOX) 5 MG PO ONE (10:00)
[2020-03-04] MEDS ORDERED: METHADONE HCL 10 MG TABLET (FOR DETOX USE ONLY) ONE (10:55)
[2020-03-04] MEDS ORDERED: METHADONE HCL 5 MG TABLET (FOR DETOX USE ONLY) ONE (10:55)
[2020-03-04] MEDS: PRENATAL VITAMINS W/ FOLIC ACID TABLET (FP) PO SCH (10:56)
[2020-03-04] MEDS: NICOTINE 14 MG/24 HOURS TOPICAL PATCH TD SCH (10:56)
[2020-03-04 14:51] LABS: POTASSIUM 4.3 mmol/L (3.5-5.1)
[2020-03-04 14:54] LABS: HEMATOCRIT 29.7 % (35.4-49); HEMOGLOBIN 9.4 GM/dL (11.7-16.9); MCH 25.7 pg (25.7-33.7); MCHC 31.5 g/dl (32.0-35.9); MEAN CELL VOLUME 81.4 fl (80-96); MEAN PLT VOLUME 9.3 fl (7.5-11.1); PLATELET COUNT 157 K/MM3 (134-434); RBC 3.65 M/mm3 (4.00-5.60); RDW 18.5 % (11.9-15.9)
[2020-03-04 14:56] LABS: ALBUMIN 3.4 g/dl (3.4-5.0); BLOOD UREA NITROGEN 36.4 mg/dL (7-18); CALCIUM 8.8 mg/dL (8.5-10.1)
[2020-03-04 14:58] LABS: BILIRUBIN,TOTAL 0.6 mg/dL (0.2-1); TOT PROT 7.2 g/dl (6.4-8.2)
[2020-03-04] MEDS: ASPIRIN 81 MG CHEWABLE TABLETS PO SCH (17:27)
[2020-03-04] MEDS: CLOPIDOGREL BISULFATE 75 MG TABLET (FP) PO SCH (17:27)
[2020-03-04] MEDS: THIAMINE HCL 100 MG TABLET (FP) PO SCH (22:12)
[2020-03-04] MEDS: ATORVASTATIN CA 40 MG TABLET (FP) PO SCH (22:12)
[2020-03-04] MEDS: MELATONIN 5 MG TABLETS PO SCH (22:13)
[2020-03-05] MEDS: cloNIDine HCL 0.1 MG TABLET PO PRN (05:40)
[2020-03-05] MEDS ORDERED: METHADONE HCL 10 MG TABLET (FOR DETOX USE ONLY) PO ONE (10:00)
[2020-03-05 10:45] LABS: HEMATOCRIT 32.4 % (35.4-49); HEMOGLOBIN 10.2 GM/dL (11.7-16.9); MCH 25.5 pg (25.7-33.7); MCHC 31.5 g/dl (32.0-35.9); MEAN CELL VOLUME 80.8 fl (80-96); MEAN PLT VOLUME 9.5 fl (7.5-11.1); PLATELET COUNT 168 K/MM3 (134-434); RBC 4.01 M/mm3 (4.00-5.60); RDW 17.8 % (11.9-15.9); WHITE BLOOD COUNT 3.6 K/mm3 (4.0-10.0)
[2020-03-05 10:53] LABS: POTASSIUM 4.3 mmol/L (3.5-5.1)
[2020-03-05 10:59] LABS: CALCIUM 9.2 mg/dL (8.5-10.1)
[2020-03-05 11:01] LABS: CREATININE 1.8 mg/dL (0.55-1.3)
[2020-03-05] MEDS: levETIRAcetam 500 MG TABLET (FP) PO SCH ×2 (11:01→22:40)
[2020-03-05] MEDS: CLOPIDOGREL BISULFATE 75 MG TABLET (FP) PO SCH (11:01)
[2020-03-05] MEDS: LISINOPRIL 20 MG TABLET PO SCH (11:01)
[2020-03-05] MEDS: ASPIRIN 81 MG CHEWABLE TABLETS PO SCH (11:01)
[2020-03-05] MEDS: PRENATAL VITAMINS W/ FOLIC ACID TABLET (FP) PO SCH (11:02)
[2020-03-05] MEDS: amLODIPine BESYLATE 10 MG TABLET (FP) PO SCH (11:03)
[2020-03-05] MEDS: NICOTINE 14 MG/24 HOURS TOPICAL PATCH TD SCH (11:03)
[2020-03-05] MEDS: FERROUS SO4 325 MG TABLET (FP) PO SCH (18:28)
[2020-03-05] MEDS: THIAMINE HCL 100 MG TABLET (FP) PO SCH (22:40)
[2020-03-05] MEDS: ATORVASTATIN CA 40 MG TABLET (FP) PO SCH (22:41)
[2020-03-05] MEDS: MELATONIN 5 MG TABLETS PO SCH (22:41)
[2020-03-06] MEDS: FERROUS SO4 325 MG TABLET (FP) PO SCH ×2 (07:23→18:38)
[2020-03-06] MEDS ORDERED: METHADONE HCL 5 MG TABLET (FOR DETOX USE ONLY) ONE (09:14)
[2020-03-06] MEDS ORDERED: METHADONE HCL 10 MG TABLET (FOR DETOX USE ONLY) ONE (09:15)
[2020-03-06] MEDS ORDERED: METHADONE (DETOX) 10 MG, METHADONE (DETOX) 5 MG PO ONE (10:00)
[2020-03-06] MEDS: levETIRAcetam 500 MG TABLET (FP) PO SCH ×2 (10:03→22:54)
[2020-03-06] MEDS: ASPIRIN 81 MG CHEWABLE TABLETS PO SCH (10:03)
[2020-03-06] MEDS: CLOPIDOGREL BISULFATE 75 MG TABLET (FP) PO SCH (10:03)
[2020-03-06] MEDS: LISINOPRIL 20 MG TABLET PO SCH (10:04)
[2020-03-06] MEDS: PRENATAL VITAMINS W/ FOLIC ACID TABLET (FP) PO SCH (10:04)
[2020-03-06] MEDS: amLODIPine BESYLATE 10 MG TABLET (FP) PO SCH (10:04)
[2020-03-06] MEDS: NICOTINE 14 MG/24 HOURS TOPICAL PATCH TD SCH (10:07)
[2020-03-06] MEDS ORDERED: cloNIDine HCL 0.1 MG TABLET PO ONE (13:56)
[2020-03-06] MEDS: THIAMINE HCL 100 MG TABLET (FP) PO SCH (22:54)
[2020-03-06] MEDS: ATORVASTATIN CA 40 MG TABLET (FP) PO SCH (22:54)
[2020-03-06] MEDS: MELATONIN 5 MG TABLETS PO SCH (22:54)
[2020-03-07] MEDS: FERROUS SO4 325 MG TABLET (FP) PO SCH ×2 (07:38→18:15)
[2020-03-07] MEDS: ASPIRIN 81 MG CHEWABLE TABLETS PO SCH (09:07)
[2020-03-07] MEDS: CLOPIDOGREL BISULFATE 75 MG TABLET (FP) PO SCH (09:07)
[2020-03-07] MEDS: levETIRAcetam 500 MG TABLET (FP) PO SCH ×2 (09:07→23:12)
[2020-03-07] MEDS: amLODIPine BESYLATE 10 MG TABLET (FP) PO SCH (09:07)
[2020-03-07] MEDS: LISINOPRIL 20 MG TABLET PO SCH (09:07)
[2020-03-07] MEDS: NICOTINE 14 MG/24 HOURS TOPICAL PATCH TD SCH (09:08)
[2020-03-07] MEDS: PRENATAL VITAMINS W/ FOLIC ACID TABLET (FP) PO SCH (09:08)
[2020-03-07] MEDS ORDERED: METHADONE HCL 10 MG TABLET (FOR DETOX USE ONLY) PO ONE (10:00)
[2020-03-07 15:06] LABS: PH,URINE 7.5 (5.0-8.0); URINE APPEARANCE CLEAR; URINE BILIRUBIN NEGATIVE (NEGATIVE); URINE COLOR YELLOW; URINE GLUCOSE (UA) NEGATIVE (NEGATIVE); URINE KETONE NEGATIVE (NEGATIVE); URINE LEUK ESTERASE NEGATIVE (NEGATIVE); URINE NITRITE NEGATIVE (NEGATIVE); URINE PROTEIN TRACE (NEGATIVE)
[2020-03-07] MEDS: MELATONIN 5 MG TABLETS PO SCH (22:47)
[2020-03-07] MEDS: THIAMINE HCL 100 MG TABLET (FP) PO SCH (22:47)
[2020-03-07] MEDS: ATORVASTATIN CA 40 MG TABLET (FP) PO SCH (23:12)
[2020-03-08] MEDS ORDERED: METHADONE HCL 5 MG TABLET (FOR DETOX USE ONLY) PO ONE (06:00)
[2020-03-08] MEDS: FERROUS SO4 325 MG TABLET (FP) PO SCH (07:23)
[2020-03-08 07:42] VITALS: BP 151/75; PULSE 64; TEMP 97.2
[2020-03-08] MEDS: ASPIRIN 81 MG CHEWABLE TABLETS PO SCH (08:59)
[2020-03-08] MEDS: levETIRAcetam 500 MG TABLET (FP) PO SCH (08:59)
[2020-03-08] MEDS: amLODIPine BESYLATE 10 MG TABLET (FP) PO SCH (08:59)
[2020-03-08] MEDS: CLOPIDOGREL BISULFATE 75 MG TABLET (FP) PO SCH (08:59)
[2020-03-08] MEDS: PRENATAL VITAMINS W/ FOLIC ACID TABLET (FP) PO SCH (09:00)
[2020-03-08] MEDS: LISINOPRIL 20 MG TABLET PO SCH (09:00)
[2020-03-08] MEDS: NICOTINE 14 MG/24 HOURS TOPICAL PATCH TD SCH (09:00)
== END 2020-03-08 09:00 | disposition home or self-care (01) | DRG 773 ==
LOC: YASAS 08:32 → Y6N 08:36
PROVIDERS: ADMIT Allergy & Immunology; ATTEND Allergy & Immunology
PROC: HZ2ZZZZ Detoxification Services for Substance Abuse Treatment (ICD-10-PCS; principal; 2020-03-04)
DX: F11.23 Opioid dependence with withdrawal (principal); F17.210 Nicotine dependence, cigarettes, uncomplicated; I10 Essential (primary) hypertension; I25.10 Atherosclerotic heart disease of native coronary artery without angina pectoris; J45.20 Mild intermittent asthma, uncomplicated; E78.5 Hyperlipidemia, unspecified; E11.9 Type 2 diabetes mellitus without complications; Z21 Asymptomatic human immunodeficiency virus [HIV] infection status; B19.20 Unspecified viral hepatitis C without hepatic coma; N28.9 Disorder of kidney and ureter, unspecified; D64.9 Anemia, unspecified; R00.1 Bradycardia, unspecified; Z95.5 Presence of coronary angioplasty implant and graft; Z88.8 Allergy status to other drugs, medicaments and biological substances; Z86.718 Personal history of other venous thrombosis and embolism; Z86.79 Personal history of other diseases of the circulatory system
CPT/HCPCS: 36415; 80048; 80053; 80177; 81003; 82962; 85027; 86780; 93005; 93010; C9803; J0735; U0003

== ENCOUNTER 2020-06-07 09:21 | Inpatient (IN) | payer OTHER ==
[2020-06-07 10:04] VITALS: BMI 26.2
[2020-06-07] MEDS ORDERED: IBUPROFEN 400 MG TABLET (FP) PO PRN (17:28)
[2020-06-07] MEDS ORDERED: ONDANSETRON *ODT* 4 MG TABLET SL PRN (17:28)
[2020-06-07] MEDS ORDERED: NICOTINE POLACRILEX 2 MG GUM BUC PRN (17:28)
[2020-06-07] MEDS ORDERED: MAGNESIUM HYDROX 2400MG/30ML ORAL SUSPENSION 30 ML CUP PO PRN (17:28)
[2020-06-07] MEDS ORDERED: ACETAMINOPHEN 325 MG TABLET (FP) PO PRN ×2 (17:28)
[2020-06-07] MEDS ORDERED: MENTHOL/PHENOL 1 EACH UD MM PRN (17:28)
[2020-06-07] MEDS ORDERED: METHADONE HCL 10 MG TABLET (FOR DETOX USE ONLY) PO ONE (17:28)
[2020-06-07] MEDS ORDERED: BISMUTH SUBSALICYLATE 524 MG/30 ML UD PO PRN (17:28)
[2020-06-07] MEDS ORDERED: MAGNESIUM CITRATE 300 ML BOTTLE PO PRN (17:28)
[2020-06-07] MEDS ORDERED: MAG HYDROX/AL HYDROX/SIMETH 30 ML UNIT-DOSE CUP PO PRN (17:28)
[2020-06-07] MEDS ORDERED: METHOCARBAMOL 500 MG TABLET PO PRN (17:28)
[2020-06-07] MEDS ORDERED: hydrOXYzine PAMOATE 25 MG CAPSULE (FP) PO PRN (17:28)
[2020-06-07] MEDS: cloNIDine HCL 0.1 MG TABLET PO PRN (18:24)
[2020-06-07] MEDS ORDERED: AMMONIUM LACTATE 12% LOTION 225 GM BOTTLE TP PRN (20:12)
[2020-06-07] MEDS ORDERED: traZODone HCL 50 MG TABLET (FP) PO ONE (22:00)
[2020-06-08] MEDS: THIAMINE HCL 100 MG TABLET (FP) PO SCH ×2 (00:15→23:10)
[2020-06-08] MEDS: ATORVASTATIN CA 40 MG TABLET (FP) PO SCH ×2 (00:15→23:10)
[2020-06-08] MEDS: MELATONIN 5 MG TABLETS PO SCH ×2 (00:15→23:10)
[2020-06-08] MEDS: FERROUS SO4 325 MG TABLET (FP) PO SCH ×2 (07:22→18:28)
[2020-06-08] MEDS ORDERED: METHADONE HCL 10 MG TABLET (FOR DETOX USE ONLY) ONE (09:35)
[2020-06-08] MEDS ORDERED: METHADONE HCL 5 MG TABLET (FOR DETOX USE ONLY) ONE (09:35)
[2020-06-08] MEDS ORDERED: METHADONE (DETOX) 20 MG, METHADONE (DETOX) 5 MG PO ONE (10:00)
[2020-06-08] MEDS: CLOPIDOGREL BISULFATE 75 MG TABLET (FP) PO SCH (11:34)
[2020-06-08] MEDS: PRENATAL VITAMINS W/ FOLIC ACID TABLET (FP) PO SCH (11:34)
[2020-06-08] MEDS: amLODIPine BESYLATE 5 MG TABLET (FP) PO SCH (11:34)
[2020-06-08] MEDS: ASPIRIN 81 MG CHEWABLE TABLETS PO SCH (11:36)
[2020-06-08] MEDS: LISINOPRIL 20 MG TABLET PO SCH (11:36)
[2020-06-08] MEDS: cloNIDine HCL 0.1 MG TABLET PO PRN (14:04)
[2020-06-08] MEDS: LABETALOL HCL 100 MG TABLET (FP) PO SCH (14:04)
[2020-06-08] MEDS: FUROSEMIDE 40 MG TABLET (FP) PO SCH (14:04)
[2020-06-09] MEDS: FERROUS SO4 325 MG TABLET (FP) PO SCH ×2 (08:00→18:25)
[2020-06-09] MEDS ORDERED: METHADONE HCL 10 MG TABLET (FOR DETOX USE ONLY) PO ONE (10:00)
[2020-06-09 10:17] LABS: POTASSIUM 3.8 mmol/L (3.5-5.1)
[2020-06-09 10:21] LABS: BLOOD UREA NITROGEN 27.7 mg/dL (7-18)
[2020-06-09] MEDS: PRENATAL VITAMINS W/ FOLIC ACID TABLET (FP) PO SCH (10:45)
[2020-06-09] MEDS: CLOPIDOGREL BISULFATE 75 MG TABLET (FP) PO SCH (10:45)
[2020-06-09] MEDS: LISINOPRIL 20 MG TABLET PO SCH (10:45)
[2020-06-09] MEDS: LABETALOL HCL 100 MG TABLET (FP) PO SCH (10:45)
[2020-06-09] MEDS: FUROSEMIDE 40 MG TABLET (FP) PO SCH (10:45)
[2020-06-09] MEDS: amLODIPine BESYLATE 5 MG TABLET (FP) PO SCH (10:46)
[2020-06-09] MEDS: ASPIRIN 81 MG CHEWABLE TABLETS PO SCH (10:46)
[2020-06-09 10:51] LABS: CALCIUM 9.1 mg/dL (8.5-10.1)
[2020-06-09 16:44] VITALS: BP 145/95; PULSE 86; TEMP 97.1
[2020-06-10] MEDS ORDERED: amLODIPine BESYLATE 5 MG TABLET (FP) PO SCH (10:00)
[2020-06-10] MEDS ORDERED: METHADONE (DETOX) 10 MG, METHADONE (DETOX) 5 MG PO ONE (10:00)
[2020-06-11] MEDS ORDERED: METHADONE HCL 10 MG TABLET (FOR DETOX USE ONLY) PO ONE (10:00)
[2020-06-12] MEDS ORDERED: METHADONE HCL 5 MG TABLET (FOR DETOX USE ONLY) PO ONE (06:00)
== END 2020-06-09 18:32 | disposition left against medical advice (07) | DRG 770 ==
LOC: YASAS 09:21 → Y6N 16:29
PROVIDERS: ADMIT Allergy & Immunology; ATTEND Allergy & Immunology
PROC: HZ2ZZZZ Detoxification Services for Substance Abuse Treatment (ICD-10-PCS; principal; 2020-06-07)
DX: F11.23 Opioid dependence with withdrawal (principal); F14.10 Cocaine abuse, uncomplicated; F17.210 Nicotine dependence, cigarettes, uncomplicated; F19.24 Other psychoactive substance dependence with psychoactive substance-induced mood disorder; Z21 Asymptomatic human immunodeficiency virus [HIV] infection status; D64.9 Anemia, unspecified; E11.9 Type 2 diabetes mellitus without complications; I25.10 Atherosclerotic heart disease of native coronary artery without angina pectoris; I13.10 Hypertensive heart and chronic kidney disease without heart failure, with stage 1 through stage 4 chronic kidney disease, or unspecified chronic kidney disease; N18.9 Chronic kidney disease, unspecified; Z95.5 Presence of coronary angioplasty implant and graft; J44.9 Chronic obstructive pulmonary disease, unspecified; B18.2 Chronic viral hepatitis C; R79.89 Other specified abnormal findings of blood chemistry; R01.1 Cardiac murmur, unspecified; Z86.73 Personal history of transient ischemic attack (TIA), and cerebral infarction without residual deficits; Z86.718 Personal history of other venous thrombosis and embolism; Z98.890 Other specified postprocedural states
CPT/HCPCS: 36415; 80048; 82962; 86780; C9803; J0735; U0003

== ENCOUNTER 2020-06-07 10:20 | Emergency (ER) | payer OTHER ==
[2020-06-07 10:39] VITALS: TEMP 98.1; BMI 26.2
[2020-06-07] MEDS ORDERED: amLODIPine BESYLATE 10 MG TABLET (FP) PO ONE (10:51)
[2020-06-07] MEDS ORDERED: amLODIPine BESYLATE 2.5 MG TABLET (FP) ONE (11:03)
[2020-06-07] MEDS ORDERED: amLODIPine BESYLATE 5 MG TABLET (FP) ONE (11:05)
[2020-06-07 11:46] LABS: BASO % 1.1 % (0-2.0); EOS % 8.7 % (0-4.5); HEMATOCRIT 31.6 % (35.4-49); HEMOGLOBIN 9.8 GM/dL (11.7-16.9); LYMPH % 20.8 % (8-40); MCH 23.6 pg (25.7-33.7); MCHC 30.9 g/dl (32.0-35.9); MEAN CELL VOLUME 76.3 fl (80-96); MEAN PLT VOLUME 8.9 fl (7.5-11.1); NEUT % 56.4 % (42.8-82.8); PLATELET COUNT 182 K/MM3 (134-434); RBC 4.15 M/mm3 (4.00-5.60); RDW 17.9 % (11.9-15.9); WHITE BLOOD COUNT 4.4 K/mm3 (4.0-10.0)
[2020-06-07 12:04] LABS: CHLORIDE 105 mmol/L (98-107); POTASSIUM 4.3 mmol/L (3.5-5.1); SODIUM 137 mmol/L (136-145)
[2020-06-07 12:06] LABS: ALBUMIN 3.4 g/dl (3.4-5.0); ANION GAP 5 MMOL/L (8-16); BLOOD UREA NITROGEN 30.2 mg/dL (7-18); CALCIUM 9.3 mg/dL (8.5-10.1); CO2 27 mmol/L (21-32); GLUCOSE,RANDOM 140 mg/dL (74-106)
[2020-06-07 12:10] LABS: SGPT/ALT 14 U/L (13-61)
[2020-06-07 12:11] LABS: SGOT/AST 22 U/L (15-37)
[2020-06-07 12:12] LABS: BILIRUBIN,TOTAL 0.4 mg/dL (0.2-1); TOT PROT 7.6 g/dl (6.4-8.2)
[2020-06-07 12:13] LABS: ALK PHOS 105 U/L (45-117)
[2020-06-07 12:42] LABS: EPI CELLS 7 /uL (0-25.1); HYALINE CASTS 0 /uL (0-3.1); PH,URINE 5.5 (5.0-8.0); URINE APPEARANCE CLEAR; URINE BACTERIA 16 /uL (0-1359); URINE BILIRUBIN NEGATIVE (NEGATIVE); URINE COLOR YELLOW; URINE GLUCOSE (UA) NEGATIVE (NEGATIVE); URINE KETONE NEGATIVE (NEGATIVE); URINE LEUK ESTERASE NEGATIVE (NEGATIVE); URINE NITRITE NEGATIVE (NEGATIVE); URINE PROTEIN 1+ (NEGATIVE); URINE RBC 6 /uL (0-23.9); URINE UROBILINOGEN 0.2 mg/dL (0.2-1.0); URINE WBC 2 /uL (0-25.8)
[2020-06-07 12:51] LABS: METHADONE, UR NEGATIVE ng/ml (CUTOFF=300); URINE BARBITURATES NEGATIVE ng/ml (CUTOFF=200)
[2020-06-07 12:52] LABS: PHENCYCLIDINE,URINE NEGATIVE ng/ml (CUTOFF=25)
[2020-06-07 12:55] LABS: URINE AMPHETAMINES NEGATIVE ng/ml (CUTOFF=500); URINE BENZODIAZEPINES NEGATIVE ng/ml (CUTOFF=200)
[2020-06-07 12:58] LABS: COCAINE, UR POSITIVE ng/ml (CUTOFF=300); OPIATES, URI POSITIVE ng/ml (CUTOFF=300)
[2020-06-07 13:09] VITALS: BP 158/85; PULSE 74
== END 2020-06-07 14:35 | disposition home or self-care (01) ==
LOC: JER 10:20
DX: R03.0 Elevated blood-pressure reading, without diagnosis of hypertension (principal)
CPT/HCPCS: 36415; 71046-TC-FY; 80053; 80307; 81003; 82550; 82553; 82962; 84484; 85025; 93005; 93010; 99284-25

== ENCOUNTER 2021-05-18 10:42 | Inpatient (IN) | payer OTHER ==
[2021-05-18 11:21] VITALS: BMI 22.7
[2021-05-18] MEDS ORDERED: TRIMETHOBENZAMIDE HCL 200MG/2ML INJ IM ONE ×2 (18:21→18:25)
[2021-05-18] MEDS ORDERED: methaDONE HCL 10 MG TABLET (FOR DETOX USE ONLY) PO ONE (18:31)
[2021-05-18] MEDS ORDERED: MAGNESIUM CITRATE 300 ML BOTTLE PO PRN (18:31)
[2021-05-18] MEDS ORDERED: BISMUTH SUBSALICYLATE 524 MG/30 ML PO PRN (18:31)
[2021-05-18] MEDS ORDERED: ACETAMINOPHEN 325 MG TABLET (FP) PO PRN ×2 (18:31)
[2021-05-18] MEDS ORDERED: hydrOXYzine PAMOATE 25 MG CAPSULE (FP) PO PRN (18:31)
[2021-05-18] MEDS ORDERED: METHOCARBAMOL 500 MG TABLET PO PRN (18:31)
[2021-05-18] MEDS ORDERED: IBUPROFEN 400 MG TABLET (FP) PO PRN (18:31)
[2021-05-18] MEDS ORDERED: MAG HYDROX/AL HYDROX/SIMETH 30 ML UNIT-DOSE CUP PO PRN (18:31)
[2021-05-18] MEDS ORDERED: MAGNESIUM HYDROX 2400MG/30ML ORAL SUSPENSION 30 ML CUP PO PRN (18:31)
[2021-05-18] MEDS ORDERED: ONDANSETRON *ODT* 4 MG TABLET SL PRN (18:31)
[2021-05-18] MEDS ORDERED: P-EPHED 60MG/TRIPROLIDI 2.5MG TABLET PO PRN (18:31)
[2021-05-18] MEDS ORDERED: LOPERAMIDE HCL 2 MG CAPSULE PO PRN (18:31)
[2021-05-18] MEDS ORDERED: MENTHOL/PHENOL 1 EACH UD MM PRN (18:31)
[2021-05-18] MEDS ORDERED: cloNIDine HCL 0.1 MG TABLET PO PRN (18:31)
[2021-05-18] MEDS ORDERED: methaDONE HCL 10 MG TABLET (FOR DETOX USE ONLY) ONE (18:57)
[2021-05-18] MEDS: MELATONIN 5 MG TABLETS PO SCH (23:03)
[2021-05-18] MEDS: THIAMINE HCL 100 MG TABLET (FP) PO SCH (23:03)
[2021-05-18] MEDS: ATORVASTATIN CA 40 MG TABLET (FP) PO SCH (23:03)
[2021-05-19] MEDS: FERROUS SO4 325 MG TABLET (FP) PO SCH ×2 (08:08→18:23)
[2021-05-19] MEDS ORDERED: methaDONE HCL 10 MG TABLET (FOR DETOX USE ONLY) ONE (08:56)
[2021-05-19] MEDS ORDERED: PATIENT'S OWN MEDICATION (NON-FORMULARY) (Lisinopril [Prinivil -] 40 MG Tablet) PO SCH (10:00)
[2021-05-19] MEDS ORDERED: LABETALOL HCL 200 MG TABLET (FP) PO SCH (10:00)
[2021-05-19] MEDS: ASPIRIN 81 MG CHEWABLE TABLETS PO SCH (10:29)
[2021-05-19] MEDS: FUROSEMIDE 40 MG TABLET (FP) PO SCH (10:29)
[2021-05-19] MEDS: PRENATAL VITAMINS W/ FOLIC ACID TABLET (FP) PO SCH (10:29)
[2021-05-19] MEDS: amLODIPine BESYLATE 5 MG TABLET (FP) PO SCH (10:29)
[2021-05-19] MEDS: LISINOPRIL 20 MG TABLET PO SCH (10:29)
[2021-05-19] MEDS ORDERED: LABETALOL HCL 100 MG TABLET (FP) PO SCH (10:32)
[2021-05-19] MEDS: LABETALOL HCL 100 MG TABLET (FP) PO SCH (13:05)
[2021-05-19] MEDS: EMTRICITAB/RILPIVIRI/TENOF ALA (ODEFSEY) TABLET PO SCH (13:05)
[2021-05-19 16:34] LABS: HEMATOCRIT 28.4 % (35.4-49); HEMOGLOBIN 8.5 GM/dL (11.7-16.9); MCH 21.2 pg (25.7-33.7); MCHC 29.8 g/dl (32.0-35.9); MEAN CELL VOLUME 71.1 fl (80-96); MEAN PLT VOLUME 9.2 fl (7.5-11.1); PLATELET COUNT 144 10^3/uL (134-434); RDW 18.9 % (11.9-15.9); WHITE BLOOD COUNT 3.6 K/mm3 (4.0-10.0)
[2021-05-19 16:40] LABS: BLOOD UREA NITROGEN 28.2 mg/dL (7-18); CALCIUM 8.6 mg/dL (8.5-10.1)
[2021-05-19 16:41] LABS: ALBUMIN 2.9 g/dl (3.4-5.0); CREATININE 1.7 mg/dL (0.55-1.3)
[2021-05-19 16:42] LABS: BILIRUBIN,TOTAL 0.5 mg/dL (0.2-1); TOT PROT 6.9 g/dl (6.4-8.2)
[2021-05-19] MEDS: THIAMINE HCL 100 MG TABLET (FP) PO SCH (22:34)
[2021-05-19] MEDS: MELATONIN 5 MG TABLETS PO SCH (22:34)
[2021-05-19] MEDS: ATORVASTATIN CA 40 MG TABLET (FP) PO SCH (22:34)
[2021-05-20] MEDS: FERROUS SO4 325 MG TABLET (FP) PO SCH ×2 (07:46→18:06)
[2021-05-20] MEDS ORDERED: methaDONE HCL 10 MG TABLET (FOR DETOX USE ONLY) PO ONE (10:00)
[2021-05-20] MEDS: LISINOPRIL 20 MG TABLET PO SCH (10:19)
[2021-05-20] MEDS: ASPIRIN 81 MG CHEWABLE TABLETS PO SCH (10:19)
[2021-05-20] MEDS: LABETALOL HCL 100 MG TABLET (FP) PO SCH (10:20)
[2021-05-20] MEDS: FUROSEMIDE 40 MG TABLET (FP) PO SCH (10:22)
[2021-05-20] MEDS: amLODIPine BESYLATE 5 MG TABLET (FP) PO SCH (10:22)
[2021-05-20] MEDS: PRENATAL VITAMINS W/ FOLIC ACID TABLET (FP) PO SCH (10:23)
[2021-05-20] MEDS: EMTRICITAB/RILPIVIRI/TENOF ALA (ODEFSEY) TABLET PO SCH (12:47)
[2021-05-20] MEDS: ATORVASTATIN CA 40 MG TABLET (FP) PO SCH (22:42)
[2021-05-20] MEDS: THIAMINE HCL 100 MG TABLET (FP) PO SCH (22:43)
[2021-05-20] MEDS: MELATONIN 5 MG TABLETS PO SCH (22:43)
[2021-05-21] MEDS: FERROUS SO4 325 MG TABLET (FP) PO SCH ×2 (07:11→23:07)
[2021-05-21 08:10] LABS: SARS-CoV-2 NAA Not Detected (Not Detected)
[2021-05-21] MEDS ORDERED: methaDONE HCL 10 MG TABLET (FOR DETOX USE ONLY) ONE (08:54)
[2021-05-21] MEDS: LISINOPRIL 20 MG TABLET PO SCH (10:19)
[2021-05-21] MEDS: ASPIRIN 81 MG CHEWABLE TABLETS PO SCH (10:20)
[2021-05-21] MEDS: EMTRICITAB/RILPIVIRI/TENOF ALA (ODEFSEY) TABLET PO SCH (10:20)
[2021-05-21] MEDS: FUROSEMIDE 40 MG TABLET (FP) PO SCH (10:20)
[2021-05-21] MEDS: LABETALOL HCL 100 MG TABLET (FP) PO SCH (10:20)
[2021-05-21] MEDS: amLODIPine BESYLATE 5 MG TABLET (FP) PO SCH (10:20)
[2021-05-21] MEDS: PRENATAL VITAMINS W/ FOLIC ACID TABLET (FP) PO SCH (10:22)
[2021-05-21 12:44] LABS: ALBUMIN 2.9 g/dl (3.4-5.0); BLOOD UREA NITROGEN 28.7 mg/dL (7-18)
[2021-05-21 12:47] LABS: CREATININE 1.7 mg/dL (0.55-1.3)
[2021-05-21 12:48] LABS: TOT PROT 6.7 g/dl (6.4-8.2)
[2021-05-21 12:49] LABS: BILIRUBIN,TOTAL 0.3 mg/dL (0.2-1)
[2021-05-21 12:57] LABS: HEMATOCRIT 26.6 % (35.4-49); HEMOGLOBIN 7.9 GM/dL (11.7-16.9); MCH 20.7 pg (25.7-33.7); MCHC 29.7 g/dl (32.0-35.9); MEAN CELL VOLUME 69.5 fl (80-96); MEAN PLT VOLUME 9.1 fl (7.5-11.1); PLATELET COUNT 134 10^3/uL (134-434); RBC 3.83 M/mm3 (4.00-5.60); WHITE BLOOD COUNT 3.7 K/mm3 (4.0-10.0)
[2021-05-21 13:35] LABS: ERYTHROCYTE SEDIMENTATION RATE 4 mm/hr (0-20)
[2021-05-21] MEDS: MELATONIN 5 MG TABLETS PO SCH (23:07)
[2021-05-21] MEDS: ATORVASTATIN CA 40 MG TABLET (FP) PO SCH (23:08)
[2021-05-21] MEDS: THIAMINE HCL 100 MG TABLET (FP) PO SCH (23:09)
[2021-05-22] MEDS: FERROUS SO4 325 MG TABLET (FP) PO SCH ×3 (08:16→17:33)
[2021-05-22] MEDS ORDERED: methaDONE HCL 10 MG TABLET (FOR DETOX USE ONLY) PO ONE (10:00)
[2021-05-22] MEDS: PRENATAL VITAMINS W/ FOLIC ACID TABLET (FP) PO SCH (10:15)
[2021-05-22] MEDS: LABETALOL HCL 100 MG TABLET (FP) PO SCH (10:15)
[2021-05-22] MEDS: LISINOPRIL 20 MG TABLET PO SCH (10:16)
[2021-05-22] MEDS: EMTRICITAB/RILPIVIRI/TENOF ALA (ODEFSEY) TABLET PO SCH (10:16)
[2021-05-22] MEDS: FUROSEMIDE 40 MG TABLET (FP) PO SCH (10:17)
[2021-05-22] MEDS: amLODIPine BESYLATE 5 MG TABLET (FP) PO SCH (10:17)
[2021-05-22] MEDS: ASPIRIN 81 MG CHEWABLE TABLETS PO SCH (10:17)
[2021-05-22] MEDS: ATORVASTATIN CA 40 MG TABLET (FP) PO SCH (22:33)
[2021-05-22] MEDS: THIAMINE HCL 100 MG TABLET (FP) PO SCH (22:33)
[2021-05-22] MEDS: MELATONIN 5 MG TABLETS PO SCH (22:33)
[2021-05-23 06:26] VITALS: TEMP 97.9
[2021-05-23] MEDS: FERROUS SO4 325 MG TABLET (FP) PO SCH (07:06)
[2021-05-23 09:14] VITALS: BP 146/73; PULSE 71
[2021-05-23] MEDS: amLODIPine BESYLATE 5 MG TABLET (FP) PO SCH (09:36)
[2021-05-23] MEDS: FUROSEMIDE 40 MG TABLET (FP) PO SCH (09:36)
[2021-05-23] MEDS: EMTRICITAB/RILPIVIRI/TENOF ALA (ODEFSEY) TABLET PO SCH (09:36)
[2021-05-23] MEDS: LABETALOL HCL 100 MG TABLET (FP) PO SCH (09:36)
[2021-05-23] MEDS: PRENATAL VITAMINS W/ FOLIC ACID TABLET (FP) PO SCH (09:36)
[2021-05-23] MEDS: LISINOPRIL 20 MG TABLET PO SCH (09:36)
[2021-05-23] MEDS: ASPIRIN 81 MG CHEWABLE TABLETS PO SCH (09:36)
== END 2021-05-23 09:18 | disposition home or self-care (01) | DRG 773 ==
LOC: YASAS 10:42 → Y3N 17:34
PROVIDERS: ADMIT Allergy & Immunology; ATTEND Allergy & Immunology
PROC: HZ2ZZZZ Detoxification Services for Substance Abuse Treatment (ICD-10-PCS; principal; 2021-05-18)
DX: F11.23 Opioid dependence with withdrawal (principal); F10.20 Alcohol dependence, uncomplicated; F14.20 Cocaine dependence, uncomplicated; F17.210 Nicotine dependence, cigarettes, uncomplicated; Z21 Asymptomatic human immunodeficiency virus [HIV] infection status; D64.9 Anemia, unspecified; I25.10 Atherosclerotic heart disease of native coronary artery without angina pectoris; I10 Essential (primary) hypertension; I25.2 Old myocardial infarction; Z95.5 Presence of coronary angioplasty implant and graft; J45.20 Mild intermittent asthma, uncomplicated; E78.5 Hyperlipidemia, unspecified; B18.2 Chronic viral hepatitis C; R79.89 Other specified abnormal findings of blood chemistry; Z86.73 Personal history of transient ischemic attack (TIA), and cerebral infarction without residual deficits; Z86.718 Personal history of other venous thrombosis and embolism; Z88.8 Allergy status to other drugs, medicaments and biological substances; Z87.09 Personal history of other diseases of the respiratory system
CPT/HCPCS: 36415; 80053; 82607; 82746; 82962; 83036; 83540; 83550; 85027; 85045; 85651; 86780; 87811; 93005; 93010; C9803; U0003; U0005